=== PATIENT | male | born 1950 | race Caucasian/White ===

== ENCOUNTER → 2022-07-16 12:52 | Outpatient (BNVA) | payer MEDICARE, SELFPAY | PROVIDERS: Visit Provider Internal Medicine | DX: I73.9 Peripheral vascular disease, unspecified (principal); I25.10 Atherosclerotic heart disease of native coronary artery without angina pectoris; I10 Essential (primary) hypertension; E78.5 Hyperlipidemia, unspecified; Z79.82 Long term (current) use of aspirin | CPT/HCPCS: 99204 ==

== ENCOUNTER → 2022-09-02 08:42 | Outpatient (BNVA) | payer MEDICARE, SELFPAY | PROVIDERS: PCP Nurse Practitioner Family; Referring Provider Nurse Practitioner Family; Visit Provider Specialist | DX: I69.320 Aphasia following cerebral infarction (principal); I73.9 Peripheral vascular disease, unspecified; I25.10 Atherosclerotic heart disease of native coronary artery without angina pectoris; E78.5 Hyperlipidemia, unspecified; I10 Essential (primary) hypertension; I69.351 Hemiplegia and hemiparesis following cerebral infarction affecting right dominant side; Z87.891 Personal history of nicotine dependence | CPT/HCPCS: 99204 ==

== ENCOUNTER 2022-09-16 11:50 | Outpatient (CLI) | payer MEDICARE, SELFPAY ==
--- NOTE | 2022-09-16 12:15 | CT_ITS ---
WS: [id number] CT HEAD TECHNIQUE: Noncontrast CT of the head obtained from the skullbase to the vertex. CLINICAL INFORMATION: I73.9 - Peripheral vascular disease, unspecified COMPARISON: None. DLP: 995.[address] scans at [facility] use at least one of these dose optimization techniques: automated e xposure control; mA and/or kV adjustment per patient size (includes targeted exams where dose is matc hed to clinical indication); or iterative reconstruction. FINDINGS: No evidence of intracranial hemorrhage or mass effect. Ventricular system and basal cisterns are burnett nt. Moderate small vessel changes.Moderate parenchymal volume loss. 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 Ex vacuo dilatation of the LEFT posterior late ral ventricle. Intracranial vascular calcification. Mild mucosal thickening with partial opacification fluid in the paranasal sinuses. Frontal sinusitis. Opacification of the frontoethmoidal recesses. Normal posterior nasopharynx. CT/CT head wo con* [id number] IMPRESSION: 1. No evidence of intracranial hemorrhage or mass effect. 2. Moderate small vessel changes.Moderate parenchymal volume loss. 3. Intracranial vascular calcification. 4. Chronic infarct with encephalomalacia in the LEFT posterior frontal and par ietal lobes 5. Frontal sinusitis. 6. No acute intracranial findings.
--- NOTE | 2022-09-16 13:13 | USCV_ITS ---
Kirstin Juan Age: 71 Gender: M : 1950 Exam Date: 09/16/2022 13:30 Ordering Phys: Pricila Ferro MD Technologist: CT Exam Location: [facility] [place]_ Indication: pain Risk Factors: Previous Vascular Surgery: RIGHT LEFT BP: / BP: 118.0/ 63.00 0 Waveform Velocity (cm/s) Velocity (cm/s) Waveform Iliac Prox 121.3 Biphasic Iliac Mid 135.5 Monophasic Iliac Distal 138.1 Monophasic SHAKE MAKER 174.2 Monophasic SFA Prox 193.1 Monophasic SFA Mid 68.4 Biphasic SFA Dist 61.4 Biphasic POP 35.5 Monophasic FOOD SAMPLER 40.7 Monophasic DPA 31.6 Monophasic ROSE 0.9 FINDINGS Moderate to heavy heterogenous plaques in the iliac, femoral and popliteal artery on the left side Resting ROSE 0.9 CONCLUSIONS Moderate to heavy heterogenous diffuse plaques in the iliac, femoral and popliteal arteries on the left side. Resting ROSE 0.9 suggesting mild obstruction. Consider exercise ROSE to better evaluate the functional significance. Dr Geoffrey Holm MD [facility] (Electronically Signed) Final Date: 17 Sep 2022 09:21 S
--- NOTE | 2022-09-16 13:15 | USCV_ITS ---
Juan Fulton Age: 71 Gender: M : 1950 Exam Date: 09/16/2022 13:11 Ordering Phys: Pricila Ferro MD Technologist: CT Exam Location: [facility] [place]_ Indication: stenosis Risk Factors: Previous Vascular Surgery: Right Brachial BP: / Left Brachial BP: / Right Left Velocity (cm/s) Spectral Plaque Velocity (cm/s) Spectral Plaque Syst/Diast Broadening Syst/Diast Broadening 121.30/14.30 Prox CCA 122.40/ 16.50 77.00/ 13.30 Mid CCA 104.70/ 18.70 78.80/ 14.70 Distal CCA 88.20 / 15.40 78.80/ 11.90 Prox ICA 93.20 / 20.20 61.80/ 17.70 Mid ICA 76.10 / 21.00 59.80/ 21.00 Distal ICA 82.30 / 24.90 55.00 ECA 59.00 0.65 ICA/CCA 0.76 Antegrade Vertebral Antegrade 53.90/ 12.50 cm/s 35.00/ 6.20 cm/s Bi Subclavian Bi 103.6 149.4 0 0 CONCLUSIONS Intimal thickening both CCA's Right ICA stenosis <50%. Moderate calcified atheromatous plaque right carotid bulb/ICA. Left ICA stenosis <50%. Moderate calcified atheromatous plaque left carotid bulb/ICA. Normal antegrade Doppler flow noted in the right vertebral artery. Normal antegrade Doppler flow noted in the left vertebral artery. Heriberto Lyle MD (Electronically Signed) Final Date: 16 Sep 2022 17:06 S
== END 2022-09-16 11:51 | disposition home or self-care (01) ==
PROVIDERS: PCP Nurse Practitioner Family; Visit Provider Specialist
DX: I70.202 Unspecified atherosclerosis of native arteries of extremities, left leg (principal); I25.10 Atherosclerotic heart disease of native coronary artery without angina pectoris; I63.9 Cerebral infarction, unspecified; I65.23 Occlusion and stenosis of bilateral carotid arteries; J32.1 Chronic frontal sinusitis; G93.89 Other specified disorders of brain; M79.605 Pain in left leg
CPT/HCPCS: 70450; 93880; 93926

== ENCOUNTER → 2022-12-02 09:38 | Outpatient (BNVA) | payer MEDICARE, SELFPAY | PROVIDERS: PCP Nurse Practitioner Family; Visit Provider Specialist | DX: I69.320 Aphasia following cerebral infarction; I25.10 Atherosclerotic heart disease of native coronary artery without angina pectoris; I73.9 Peripheral vascular disease, unspecified; Z87.891 Personal history of nicotine dependence | CPT/HCPCS: 99214 ==

== ENCOUNTER → 2023-01-14 16:28 | Outpatient (BNVA) | payer MEDICARE, SELFPAY | PROVIDERS: PCP Nurse Practitioner Family; Visit Provider Internal Medicine | DX: E78.5 Hyperlipidemia, unspecified (principal); I10 Essential (primary) hypertension; R00.2 Palpitations; R55 Syncope and collapse | CPT/HCPCS: 36415; 80048; 99214 ==

== ENCOUNTER 2023-02-01 15:18 | Outpatient (CLI) | payer MEDICARE, SELFPAY ==
--- NOTE | 2023-02-01 15:00 | CT_ITS ---
WS: [id number] CT ANGIOGRAPHY OF THE ABDOMINAL AORTA WITH RUNOFF TO THE ANKLES HISTORY: PAD TECHNIQUE: Arterial injection is performed during imaging to evaluate the aorta and runoff vessels to the ankles. MIP and volume rendering imaging has also been performed. All images are reviewed. All C T scans at [facility] use at least one of these dose optimization techniques: automated exposu re control; mA and/or kV adjustment per patient size (includes targeted exams where dose is matched t o clinical indication); or iterative reconstruction. Contrast: Omnipaque 350; 100 mL IV. DLP: 1447.10 mGy.cm COMPARISON: None available. Mild pulmonary hyperinflation of the lung bases. Heart is normal size. No hiatal hernia. Abdominal aorta: Mild atherosclerotic plaque increasing towards the bifurcation. No aneurysm. Small a mount of calcified plaque at the origin of the SMA and celiac axis but no high-grade stenosis. COLLETTE is intact. RIGHT lower extremity arterial system: Calcified plaque throughout the RIGHT common, internal and ext ernal iliac arteries. Stenosis at multiple levels around 50%. There is a very high-grade stenosis, ne ar complete occlusion involving the femoral artery, directly over the femoral head. There is continue d plaque with stenosis greater than 50% in the distal femoral artery to the bifurcation. Very small c aliber proximal SFA. There is circumferential luminal soft plaque. Suspect complete stenosis or near complete stenosis proximal SFA. Very small caliber SFA beyond the plaque. There is additional very hi gh-grade if not complete stenosis in the mid SFA. There are small collateral vessels. Attempted recon stitution in the distal SFA. There is extensive plaque through Ulices's canal. Moderate popliteal art gunner stenosis. Heavily calcified three-vessel runoff below the knee. Small vessel caliber. LEFT lower extremity arterial system: Heavy calcified plaque LEFT common, internal and external iliac arteries. Several LEFT iliac stents are identified. Stents are patent. There is extensive calcified plaque in the femoral artery. Moderate plaque throughout the SFA. High-grade if not complete stenosis distal SFA just proximal to Ulices's canal. Reconstitution in Ulices's canal. Small caliber distal S FA to the popliteal artery. Small vessel runoff to the ankle. There is calcified plaque with areas of high-grade stenosis. Too small to characterize 5 mm low-attenuation nodule in the RIGHT lobe of the liver towards the infe rior lobe. Negative gallbladder. Normal spleen. Normal enhancement of the kidneys. RIGHT renal cyst 2 .4 x 3.6 cm. Negative pancreas. No GI tract obstruction. No adenopathy or ascites. Ventral abdominal wall hernia contains fat. Massive enlargement of the urinary bladder extending over a length of 17 cm . Outlet obstruction should be considered. IMPRESSION: 1. No aortic aneurysm. 2. Multiple LEFT iliac stents are patent. 3. Extensive calcified plaque throughout the RIGHT iliac arteries through the SFA and popliteal arter y. Multifocal areas of stenoses near 50% with additional high-grade stenosis directly over the femora l head. 4. Multifocal areas of RIGHT SFA stenosis and/or complete occlusions with reconstitution. 5. Extensive plaque throughout the LEFT femoral and superficial femoral artery. High-grade if not com plete stenosis distal LEFT SFA. 6. Small caliber bilateral three-vessel runoff to the ankle with heavy calcifications. Limited flow t o the ankles. The lumen of the vessels is being obscured by the heavy calcification. 7. Severe urinary bladder distention. Outlet obstruction is likely. Consult with urology.
[2023-02-01] MEDS: iohexol 350 mg/mL 500 mL Btl (per mL) IV (15:47)
== END 2023-02-01 15:19 | disposition home or self-care (01) ==
LOC: RAD 15:19
PROVIDERS: PCP Nurse Practitioner Family; Visit Provider Internal Medicine
DX: I70.203 Unspecified atherosclerosis of native arteries of extremities, bilateral legs (principal); Z95.820 Peripheral vascular angioplasty status with implants and grafts
CPT/HCPCS: 75635; Q9967

== ENCOUNTER 2023-05-06 17:08 | Emergency (ER) | payer MEDICARE, SELFPAY ==
[2023-05-06 17:09] VITALS: BP 138/71; PULSE 113; RESP 23; TEMP 36.6; O2SAT 98; BMI 29.9
--- NOTE | 2023-05-06 17:10 | XRR_ITS ---
PROCEDURE INFORMATION: Exam: XR Chest Exam date and time: 05/06/2023 5:21 PM Age: 72 years old Clinical indication: Pain; Chest pressure; Additional info: Chest pain TECHNIQUE: Imaging protocol: Radiologic exam of the chest. Views: 1 view. COMPARISON: CT angio abd aorta runof [id number] 02/01/2023 3:38 PM FINDINGS: Lungs: No focal consolidation. Pleural spaces: No pleural effusion. No pneumothorax. Heart/Mediastinum: No cardiomegaly. Bones/joints: No acute findings. XR/XR chest 1V portable [id number] IMPRESSION: No acute findings.
--- NOTE | 2023-05-06 17:20 | ECG_ITS ---
[facility] Test Date: 2023-05-06 Pat Name: Juan Fulton Department: Room: Gender: Male In House Cra: : 1950 Requested By: Roland Newton Order Number: [id number] Jean Marie MD: Geoffrey Holm M.D. Measurements Intervals [place] Rate: 148 P: 0 NM: 0 QRS: 54 QRSD: 84 T: -55 QT: 283 QTc: 444 Interpretive Statements ATRIAL FLUTTER/TACHYCARDIA WITH RAPID VENTRICULAR RESPONSE ST DEVIATION AND MODERATE T-WAVE ABNORMALITY, CONSIDER INFERIOR ISCHEMIA [-0.1+ mV T-WAVE IN II/aVF] No previous ECG available for comparison Electronically Signed On 05-06-2023 21:50:26 CREAM GATHERER by Geoffrey Holm M.D. [id number]
[2023-05-06] MEDS: metoprolol succinate ER (24 HR) 25 mg Tablet 12.5 MG PO (17:25)
[2023-05-06] MEDS: metoprolol tartrate 1 mg/1 mL SDV 5 mL 5 MG IVP (17:25)
--- NOTE | 2023-05-06 17:36 | W.ED.ARRPALP ---
Documented by User: Roland Brooke DO 05/06/23 17:59 HPI - Arrhythmia/Palpitations General: Chief Complaint: Arrhythmia/Palpitations Stated Complaint: chest pain Time Seen by Provider: 05/06/23 17:10 Source: patient Mode of arrival: ambulatory History of Present Illness: 72-year-old male presents emergency room with rapid heart rate. He has a known history of atrial fibrillation. He is currently on metoprolol for rate control additionally he is on Eliquis, aspirin and Plavix. He has a history of peripheral artery disease and previous stents in his femoral arteries. MD complaint: rapid heart beat, heart racing and atrial fibrillation Onset (ago): minute(s) Duration: intermittent Severity: mild Context: occurred during rest Arrhythmia history: atrial fibrillation Associated symptoms: Deny anxiety, cough, diaphoresis, muscle cramps, nausea, paresthesias, pre-syncope, sense of impending doom, short of breath, syncope or vomiting Review of Systems Const: Denies: diaphoresis Card: Denies: syncope or pre-syncope Resp: Denies: dyspnea GI: Denies: nausea or vomiting : Denies: dysuria, urinary frequency or urinary urgency Musc: Denies: muscle cramps Skin/Breast: Denies: rash Psych: Denies: anxiety PFSH ED PFSH: Medical History HTN (hypertension) Hyperlipemia COPD (chronic obstructive pulmonary disease) CAD (coronary artery disease) Surgical History Hx of neck surgery History of transurethral resection of prostate H/O repair of rotator cuff Family History Unknown Stroke Social History Smoking and tobacco/nicotine status: former use of tobacco/nicotine Alcohol intake: current Alcohol intake frequency: 3 or more drinks per day Alcohol type: beer Physical Exam Const: GENERAL APPEARANCE: cooperative and comfortable ORIENTATION/CONSCIOUSNESS: Yes awake, Yes oriented to person, Yes oriented to place and Yes oriented to time HENMT: COMMON NORMALS: normocephalic, atraumatic and hearing grossly normal bilaterally HEAD & SCALP: normocephalic and atraumatic Resp: COMMON NORMALS: normal respiratory effort, No retractions, No use of accessory muscles and clear to auscultation bilaterally AUSCULTATION: clear to auscultation bilaterally Cardio: COMMON NORMALS: No murmurs present (Cardio) RATE: tachycardic RHYTHM: abnormal rhythm irregularly irregular GI: COMMON NORMALS: Soft to palpation and No hepatosplenomegaly present AUSCULTATION: Yes normoactive bowel sounds PALPATION: Yes Soft to palpation, No Tenderness to palpation present (GI), No Guarding due to palpation present (GI) and Yes No hepatosplenomegaly present Extremity: COMMON NORMALS: normal to inspection, capillary refill normal, no clubbing, cyanosis or edema, no calf tenderness and no pedal edema Neuro: SENSORIUM/ORIENTATION: Yes oriented to person, Yes oriented to place and Yes oriented to time Skin: COMMON NORMALS: no rashes or lesions noted GENERAL SKIN EXAM: no rashes or lesions noted Course Vital Signs: Vital signs: Vital Signs Temperature 97.9 F 05/06/23 17:09 Pulse Rate 96 05/06/23 18:37 Respiratory Rate 15 05/06/23 18:37 Blood Pressure 127/71 05/06/23 18:37 Pulse Oximetry 99 05/06/23 18:37 Oxygen Delivery Me thod Room Air 05/06/23 17:09 MDM - Arrhythmia/Palpitations Medical Decision Making Care signed out to Dr. Pennington at change of shift. See final notes for diagnosis and disposition. Medical Records I reviewed the patient's medical records. Lab Data I reviewed the patient's lab results. 05/06/23 17:33 05/06/23 17:33 Radiology Impressions Chest X-Ray 05/06/23 17:10 IMPRESSION: No acute findings. Laboratory Results WBC 6.04 10^3/uL (3.29-11.43) 05/06/23 17:33 RBC 4.14 10^6/uL (3.85-5.65) 05/06/23 17:33 Hgb 13.90 g/dL (11.27-16.99) 05/06/23 17:33 Hct 40.9 % (37-53) 05/06/23 17:33 MCV 98.8 fl (82-101) 05/06/23 17:33 MCH 33.6 pg (27-33) H 05/06/23 17: MCHC 34.0 g/dL (30-55) 05/06/23 17:33 RDW 13.2 % (12.1-15.1) 05/06/23 17:33 Plt Count 207 10^3/cmm (157-399) 05/06/23 17:33 MPV 10.3 fL (7.4-10.4) 05/06/23 17: Neut % (Auto) 62.6 % 05/06/23 17:33 Lymph % (Auto) 20.2 % 05/06/23 17:33 Robeson % (Auto) 10.3 % 05/06/23 17:33 Eos % (Auto) 5.3 % 05/06/23 17:33 Baso % (Auto) 1.3 % 05/06/23 17: Neut # (Auto) 3.78 10^3/uL (1.8-7.7) 05/06/23 17:33 Lymph # (Auto) 1.2 10^3/uL (0.8-4.8) 05/06/23 17:33 Robeson # (Auto) 0.6 10^3/uL (0.2-0.9) 05/06/23 17:33 Eos # (Auto) 0.3 10^3/uL (0.0-0.8) 05/06/23 17:33 Baso # (Auto) 0.1 10^3/uL (0.0-0.1) 05/06/23 17: Nucleated RBC % (auto) 0 % 05/06/23 17: Nucleated RBCs # 0.0 /100WBC 05/06/23 17:33 Sodium 141 mmol/L (136-145) 05/06/23 17:33 Potassium 3.7 mmol/L (3.5-5.1) 05/06/23 17:33 Chloride 104 mmol/L (98-107) 05/06/23 17:33 Carbon Dioxide 23 mmol/L (22-29) 05/06/23 17:33 Anion Gap 17.7 (5-19) 05/06/23 17:33 BUN 9 mg/dL (8-23) 05/06/23 17:33 Creatinine 1.0 mg/dL (0.7-1.2) 05/06/23 17:33 GFR Calculation Not Reportable 05/06/23 17:33 Glucose 90 mg/dL (65-115) 05/06/23 17:33 Calculated Osmolality 290 mOsm/kg (285-295) 05/06/23 17:33 Calcium 9.9 mg/dL (8.5-10.5) 05/06/23 17:33 Total Bilirubin 0.6 mg/dL (0.15-1.2) 05/06/23 17:33 AST 18 U/L (0-40) 05/06/23 17:33 ALT 18 U/L (0-41) 05/06/23 17:33 Alkaline Phosphatase 89 U/L (40-130) 05/06/23 17:33 Troponin T Baseline 14 ng/L (0-15) 05/06/23 17: Troponin T 120 Minute 13.88 ng/L (0-15) 05/06/23 19:27 Delta Troponin T -0.12 ABS# (0-10) L 05/06/23 19:27 Total Protein 7.1 g/dL (6.6-8.7) 05/06/23 17:33 Albumin 4.6 g/dL (3.5-5.2) 05/06/23 17:33 Globulin 2.5 g/dL (1.3-4.6) 05/06/23 17:33 All radiology interpretation(s) finalized by discharge Discharge Plan Discharge Patient Disposition: Home Clinical Impression: Atrial fibrillation with rapid ventricular response Condition: Stable Prescriptions: No Action fluticasone propionate [Allergy Relief (fluticasone)] 50 mcg/actuation spray,suspension 1 spray intranasal DAILY Rx Instructions: administer into each nostril mupirocin calcium 2 % cream 1 applic topical TID triamcinolone acetonide 0.1 % cream 1 applic topical BID aspirin 81 mg tablet,chewable 81 mg PO DAILY rosuvastatin 20 mg tablet 20 mg PO DAILY olmesartan 20 mg tablet 20 mg PO DAILY albuterol sulfate 90 mcg/actuation HFA aerosol inhaler 2 puff inhalation Q6H PRN cholecalciferol (vitamin D3) 50 mcg (2,000 unit) capsule 50 mcg PO DAILY omega 8-cdh-eth-fish oil [Fish Oil] 1,200 (144-216) mg capsule PO clopidogrel [Plavix] 75 mg tablet 75 mg PO DAILY Qty: 90 3RF Eliquis 5 mg tablet 5 mg PO BID Qty: 90 3RF metoprolol succinate 25 mg tablet extended release 24 hr 25 mg PO DIRECTED Qty: 270 3RF Rx Instructions: 50MG (TWO TABS) IN THE MORNING AND 25MG (ONE TAB) IN THE EVENING. cilostazol 50 mg tablet 50 mg PO BID Qty: 180 3RF Discharge Orders: Discharge ED (Routine); Ordered 05/06/23 Ordered By: Jeremiah Pennington Referrals: Nayana Chavez APN [Primary Care Provider] - 1 week Patient Instructions: A-fib (Atrial Fibrillation) (ED) Activity Restrictions/Additional Instructions: Please follow-up with your family practice physician within 1 week for further evaluation and treatment. Please call Dr. Burns office and discuss your triple therapy anticoagulation medications and see if you still need all 3. If your symptoms return please feel free to come back to the ER for further evaluation. Coding Level of Care Code ED Machine Operator Hop Worker for Chg Fwd Documented by User: Jeremiah Pennington DO 05/06/23 19:54 HPI - Arrhythmia/Palpitations General: Chief Complaint: Arrhythmia/Palpitations Stated Complaint: chest pain Time Seen by Provider: 05/06/23 17:10 [facility] ED PFSH: Medical History HTN (hypertension) Hyperlipemia COPD (chronic obstructive pulmonary disease) CAD (coronary artery disease) Surgical History Hx of neck surgery History of transurethral resection of prostate H/O repair of rotator cuff Family History Unknown Stroke Social History Smoking and tobacco/nicotine status: former use of tobacco/nicotine Alcohol intake: current Alcohol intake frequency: 3 or more drinks per day Alcohol type: beer Course Vital Signs: Vital signs: Vital Signs Temperature 97.9 F 05/06/23 17:09 Pulse Rate 96 05/06/23 18:37 Respiratory Rate 15 05/06/23 18:37 Blood Pressure 127/71 05/06/23 18:37 Pulse Oximetry 99 05/06/23 18:37 Oxygen Delivery Me thod Room Air 05/06/23 17:09 MDM - Arrhythmia/Palpitations Medical Decision Making Care signed out to Dr. Pennington at change of shift. See final notes for diagnosis and disposition. Care taken over shift change. Patient was resting comfortably in bed. Patient presented today with rapid heart rate and was diagnosed in A-fib with RVR. Patient was given additional doses of medicine had serial EKGs and lab work obtained. Patient was back in normal sinus rhythm at a beat of approximately 67 bpm when I discussed his results with him. Patient sees Dr. Ramsey. Patient will be discharged home and should follow-up with Dr. Ramsey to ask about his triple therapy anticoagulation. Differential Diagnosis Likely artial fibrillation and artial flutter; Unlikely palpitations, anxiety, sinus tachycardia, ventricular premature beats, supraventricular tachycardia, ventricular tachycardia or WPW Lab Data 05/06/23 17:33 05/06/23 17:33 Radiology Impressions Chest X-Ray 05/06/23 17:10 IMPRESSION: No acute findings. Laboratory Results WBC 6.04 10^3/uL (3.29-11.43) 05/06/23 17:33 RBC 4.14 10^6/uL (3.85-5.65) 05/06/23 17:33 Hgb 13.90 g/dL (11.27-16.99) 05/06/23 17:33 Hct 40.9 % (37-53) 05/06/23 17:33 MCV 98.8 fl (82-101) 05/06/23 17:33 MCH 33.6 pg (27-33) H 05/06/23 17:33 MCHC 34.0 g/dL (30-55) 05/06/23 17:33 RDW 13.2 % (12.1-15.1) 05/06/23 17:33 Plt Count 207 10^3/cmm (157-399) 05/06/23 17: MPV 10.3 fL (7.4-10.4) 05/06/23 17:33 Neut % (Auto) 62.6 % 05/06/23 17:33 Lymph % (Auto) 20.2 % 05/06/23 17:33 Robeson % (Auto) 10.3 % 05/06/23 17: Eos % (Auto) 5.3 % 05/06/23 17:33 Baso % (Auto) 1.3 % 05/06/23 17:33 Neut # (Auto) 3.78 10^3/uL (1.8-7.7) 05/06/23 17: Lymph # (Auto) 1.2 10^3/uL (0.8-4.8) 05/06/23 17: Robeson # (Auto) 0.6 10^3/uL (0.2-0.9) 05/06/23 17: Eos # (Auto) 0.3 10^3/uL (0.0-0.8) 05/06/23 17:33 Baso # (Auto) 0.1 10^3/uL (0.0-0.1) 05/06/23 17: Nucleated RBC % (auto) 0 % 05/06/23 17: Nucleated RBCs # 0.0 /100WBC 05/06/23 17:33 Sodium 141 mmol/L (136-145) 05/06/23 17:33 Potassium 3.7 mmol/L (3.5-5.1) 05/06/23 17:33 Chloride 104 mmol/L (98-107) 05/06/23 17:33 Carbon Dioxide 23 mmol/L (22-29) 05/06/23 17:33 Anion Gap 17.7 (5-19) 05/06/23 17:33 BUN 9 mg/dL (8-23) 05/06/23 17: Creatinine 1.0 mg/dL (0.7-1.2) 05/06/23 17:33 GFR Calculation Not Reportable 05/06/23 17:33 Glucose 90 mg/dL (65-115) 05/06/23 17:33 Calculated Osmolality 290 mOsm/kg (285-295) 05/06/23 17:33 Calcium 9.9 mg/dL (8.5-10.5) 05/06/23 17:33 Total Bilirubin 0.6 mg/dL (0.15-1.2) 05/06/23 17:33 AST 18 U/L (0-40) 05/06/23 17:33 ALT 18 U/L (0-41) 05/06/23 17:33 Alkaline Phosphatase 89 U/L (40-130) 05/06/23 17:33 Troponin T Baseline 14 ng/L (0-15) 05/06/23 17:33 Troponin T 120 Minute 13.88 ng/L (0-15) 05/06/23 19:27 Delta Troponin T -0.12 ABS# (0-10) L 05/06/23 19:27 Total Protein 7.1 g/dL (6.6-8.7) 05/06/23 17:33 Albumin 4.6 g/dL (3.5-5.2) 05/06/23 17:33 Globulin 2.5 g/dL (1.3-4.6) 05/06/23 17:33 Discharge Plan Discharge Patient Disposition: Home Clinical Impression: Atrial fibrillation with rapid ventricular response Condition: Stable Prescriptions: No Action fluticasone propionate [Allergy Relief (fluticasone)] 50 mcg/actuation spray,suspension 1 spray intranasal DAILY Rx Instructions: administer into each nostril mupirocin calcium 2 % cream 1 applic topical TID triamcinolone acetonide 0.1 % cream 1 applic topical BID aspirin 81 mg tablet,chewable 81 mg PO DAILY rosuvastatin 20 mg tablet 20 mg PO DAILY olmesartan 20 mg tablet 20 mg PO DAILY albuterol sulfate 90 mcg/actuation HFA aerosol inhaler 2 puff inhalation Q6H PRN cholecalciferol (vitamin D3) 50 mcg (2,000 unit) capsule 50 mcg PO DAILY omega 1-tht-ppg-fish oil [Fish Oil] 1,200 (144-216) mg capsule PO clopidogrel [Plavix] 75 mg tablet 75 mg PO DAILY Qty: 90 3RF Eliquis 5 mg tablet 5 mg PO BID Qty: 90 3RF metoprolol succinate 25 mg tablet extended release 24 hr 25 mg PO DIRECTED Qty: 270 3RF Rx Instructions: 50MG (TWO TABS) IN THE MORNING AND 25MG (ONE TAB) IN THE EVENING. cilostazol 50 mg tablet 50 mg PO BID Qty: 180 3RF Discharge Orders: Discharge ED (Routine); Ordered 05/06/23 Ordered By: Jeremiah Pennington Referrals: Nayana Chavez APN [Primary Care Provider] - 1 week Patient Instructions: A-fib (Atrial Fibrillation) (ED) Activity Restrictions/Additional Instructions: Please follow-up with your family practice physician within 1 week for further evaluation and treatment. Please call Dr. Burns office and discuss your triple therapy anticoagulation medications and see if you still need all 3. If your symptoms return please feel free to come back to the ER for further evaluation. Coding Level of Care Code ED Machine Operator Hop Worker for Grace Solano
[2023-05-06 17:44] VITALS: BP 138/71; PULSE 73; RESP 15; O2SAT 98
[2023-05-06 17:52] LABS: Basophils # 0.1 10^3/uL (0.0-0.1); Basophils % 1.3 %; Eosinophils # 0.3 10^3/uL (0.0-0.8); Eosinophils % 5.3 %; Hematocrit 40.9 % (37-53); Lymphocytes # 1.2 10^3/uL (0.8-4.8); Lymphocytes % 20.2 %; Mean Corpuscular Hemoglobin 33.6 pg (27-33); Mean Corpuscular Volume 98.8 fl (82-101); Mean Platelet Volume 10.3 fL (7.4-10.4); Monocytes # 0.6 10^3/uL (0.2-0.9); Monocytes % 10.3 %; Neutrophils # 3.78 10^3/uL (1.8-7.7); Neutrophils % 62.6 %; Nucleated Red Blood Cells % 0 %; Platelet Count 207 10^3/cmm (157-399); Red Blood Count 4.14 10^6/uL (3.85-5.65); Red Cell Distribution Width 13.2 % (12.1-15.1); White Blood Count 6.04 10^3/uL (3.29-11.43)
[2023-05-06 18:08] LABS: Troponin(5th) Baseline 14 ng/L (0-15)
[2023-05-06 18:11] LABS: Alanine Aminotransferase 18 U/L (0-41); Albumin Level 4.6 g/dL (3.5-5.2); Alkaline Phosphatase 89 U/L (40-130); Anion Gap 17.7 (5-19); Aspartate Amino Transferase 18 U/L (0-40); Blood Urea Nitrogen 9 mg/dL (8-23); Calcium 9.9 mg/dL (8.5-10.5); Carbon Dioxide 23 mmol/L (22-29); Chloride 104 mmol/L (98-107); Globulin 2.5 g/dL (1.3-4.6); Glucose 90 mg/dL (65-115); Osmolality Calculated 290 mOsm/kg (285-295); Potassium 3.7 mmol/L (3.5-5.1); Sodium 141 mmol/L (136-145); Total Bilirubin 0.6 mg/dL (0.15-1.2); Total Protein 7.1 g/dL (6.6-8.7)
[2023-05-06 18:37] VITALS: BP 127/71; PULSE 96; RESP 15; O2SAT 99
--- NOTE | 2023-05-06 19:23 | ECG_ITS ---
[facility] Test Date: 2023-05-06 Pat Name: Juan Fulton Department: Room: Gender: Male Recruitment Consultant: : 1950 Requested By: Roland Newton Order Number: [id number] Jean Marie MD: Geoffrey Holm M.D. Measurements Intervals [place] Rate: 67 P: 61 NH: 201 QRS: 52 QRSD: 77 T: 50 QT: 359 QTc: 381 Interpretive Statements SINUS RHYTHM Compared to ECG 05/06/2023 17:20:16 Atrial flutter no longer present T-wave abnormality no longer present Possible ischemia no longer present Electronically Signed On 05-07-2023 13:47:43 TERMINAL GAUGER SUPERVISOR by Geoffrey Holm M.D. [id number]
[2023-05-06 19:52] LABS: Troponin 5 2HR 13.88 ng/L (0-15)
[2023-05-06 19:53] LABS: Troponin 5 2HR Delta -0.12 ABS# (0-10)
[2023-05-06 20:19] VITALS: BP 120/71; PULSE 86; RESP 16; O2SAT 97
== END 2023-05-06 20:20 | disposition home or self-care (01) ==
PROVIDERS: Emergency Provider Family Medicine; PCP Nurse Practitioner Family
DX: I48.20 Chronic atrial fibrillation, unspecified (principal); Z79.02 Long term (current) use of antithrombotics/antiplatelets; Z79.82 Long term (current) use of aspirin; Z79.01 Long term (current) use of anticoagulants; I10 Essential (primary) hypertension; E78.5 Hyperlipidemia, unspecified; J44.9 Chronic obstructive pulmonary disease, unspecified; I25.10 Atherosclerotic heart disease of native coronary artery without angina pectoris; Z87.891 Personal history of nicotine dependence
CPT/HCPCS: 36415; 71045; 80053; 84484; 85025; 93005; 96374; 99285; J3490

== ENCOUNTER → 2023-07-15 13:58 | Outpatient (BNVA) | payer MEDICARE, SELFPAY | PROVIDERS: PCP Nurse Practitioner Family; Visit Provider Internal Medicine | DX: I73.9 Peripheral vascular disease, unspecified (principal); I25.10 Atherosclerotic heart disease of native coronary artery without angina pectoris; I10 Essential (primary) hypertension; E78.5 Hyperlipidemia, unspecified; Z87.891 Personal history of nicotine dependence | CPT/HCPCS: 99214 ==

== ENCOUNTER 2023-09-23 07:15 | Outpatient (CLI) | payer MEDICARE, SELFPAY ==
[2023-09-23] VITALS (58 sets, daily range): BP systolic 115–172; BP diastolic 55–90; PULSE 50–88; RESP 12–30; TEMP 36.3–36.9; O2SAT 97–100; BMI 27.6; BMI 27.4
--- NOTE | 2023-09-23 07:30 | XACV_ITS ---
Ht: 165 cm Wt: 75 kg BSA: 1.88 m2 Any Known Allergies: No known allergies Gender: Male : 1950 Exam Type: Invasive Peripheral Vascular Procedure(s): Procedure Description: Peripheral Cath Diagnostic Procedure Procedure Description: Abdominal aortic angiography Procedure Description: Lower extremities' angiography Procedure Description: Peripheral vascular Intervention Procedure Description: PV Balloon Procedure Description: PV Stent Procedure Description: PV Atherectomy Exam Priority: Routine Abdominal Diagnostic Findings Distal abdominal aorta is patent. Lower Extremity Diagnostic Findings INDICATION: 72-year-old man with past medical history of atrial fibrillation, PAD who has been having severe lifestyle limiting claudication for last several months. Bilateral lower right leg is much worse. We were treating patient medically however now symptoms are very limiting. CTA showed severe PAD. Plan for peripheral angiogram with intention of intervention of right lower extremity. Right lower extremity: Right common iliac artery is patent. Right external iliac artery is patent. Right internal iliac artery is patent. Right common femoral artery is patent. Right profunda artery is patent. Right SFA is totally occluded in proximal vessel. Heavily calcified throughout SFA. Reconstitutes via collaterals in distal SFA. Right popliteal artery is patent. Below the knee patient has three-vessel runoff with patent posterior tibial, anterior tibial and peroneal arteries.. Right Proximal Superficial Femoral Artery: 99% stenosis, ostial. Right Mid-longitudinal Superficial Femoral Artery: 100% stenosis. Right Distal Superficial Femoral Artery: 100% stenosis. Lower Extremity Interventional Findings Procedure detail: After peripheral angiogram was performed, we switched short sheath from left common femoral artery access to long sheath. IV heparin was administered to maintain anticoagulation. Using Glidewire and seeker support catheter we were able to cross totally occluded SFA and was placed in distal popliteal artery. Through the support catheter we switched Glidewire to Viper wire. Orbital atherectomy was used to perform the several runs of arthrectomy from proximal to distal vessel. As we were trying to walk out the jamie over Viper wire, jamie got stuck to the wire and both wire and jamie came out. Then after multiple attempts we were not able to go into the true lumen distally with wire and support catheter. There was significant dissection. We switched access site to right posterior tibial artery. Going retrogradely, we were able to cross the SFA again. The first ballooned it with 6.0 x 100 mm [place] balloon. This was followed by ballooning with 6.0 x 250 mm balloon. Several areas of dissection were seen at proximal and distal vessel. In the proximal vessel, we placed 6.0 x 100 mm absolute Pro self-expanding stent. Mid to distal SFA underwent stenting with 6 x 60 mm absolute Pro self-expanding stent x 2. At this time final angiogram was performed that showed excellent flow throughout the vessel. Glidewire was removed. Patient left the Performance Improvement Analyst in a stable condition.. Right Proximal Superficial Femoral Artery: 99% stenosis treated with AB ABSOLUTE PRO SE STENT [id number]. Right Mid-longitudinal Superficial Femoral Artery: 100% stenosis treated with AB ARMADA 35 OTW [id number] and AB [place] 35 MIXING TANK OPERATOR Catheter [id number]. Right Distal Superficial Femoral Artery: 99% stenosis treated with two AB ABSOLUTE PRO SE STENT [id number]. Conclusions There is severe right lower extremity disease. S/p successful revascularization of her right SFA with balloon angioplasty and stents x 3. Right Distal Superficial Femoral Artery was treated with balloon and stentsx 2. Right proximal SFA was treated with 1 stent. Recommendations Dual antiplatelet therapy. Outpatient cardiology follow up in 2 weeks. Hemodynamic Data Phase:Rest AO : 118.0 / 49.0 ( 73.0 ) @ 9:48:00 AM 118.0 / 53.0 ( 77.0 ) @ 10:39:00 AM 141.0 / 64.0 ( 96.0 ) @ 10:54:00 AM 121.0 / 48.0 ( 75.0 ) @ 11:11:00 AM 143.0 / 55.0 ( 88.0 ) @ 11:28:00 AM Access Site Site: Left Femoral artery Sheath Size: 6 Fr Hemost... Method: Suture Hemost... Success: Successful Site: Right Pedal Sheath Size: 6 Fr Hemost... Method: Suture Hemost... Success: Successful Procedure Details Findings Procedure Consent Obtained. Admit Source: Out Patient. Pre-Procedure Time Out. Identified patient by full name and date of as verbalized by the patient/guarantor. Does the consent match the physician's order: Yes. Accurate & Complete Informed Consent: Yes. Inpatient/Outpatient History & Physical on Chart: Yes. If H&P is completed, is and addenduem needed: No; If yes, is the addendum complete: N/A. Visualize and Verify Site with Patient/Guarantor: N/A. Relevant Radiology Images available: N/A. The risks, benefits, and alternatives of sedation and/or procedure were discussed by physician. The patient agrees to continue. Procedure started. Current diagnosis: PAD. PERRLA. 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 Lungs clear x 5 lobes. IV Site on Arrival: 20 gauge in the right anticubital. IV Fluids: 0.9% NaCl at 75ml/hr. 0 mL infused prior to manager cardiac cath. Pre Procedural Pulses: bilateral radial was 3+. Pre Procedural Pulses: bilateral posterior tibial was Doppled. Pre Procedural Pulses: bilateral dorsalis pedis was Doppled. Oxygen started at 2liters/min via nasal canula. bilateral groins was prepped with chloroprep then draped in the usual sterile fashion. Physician notified. Baseline sample Acquired. HR: 80 BPM. Physician arrived. Physician scrubbed in. Time out performed with cath team. Lidocaine 1% infiltrated to the left groin. Arterial access obtained with micropuncture set. A 5Fr UF catheter in over wire. Abdominal aortogram performed in AP @ 10 mL/sec for a total of 30 mL. Glidewire in through UF catheter. Glidewire advanced to right SFA. Uf catheter out. 6fr short sheath exchanged for 6fr 45cm flexor sheath over the glidewire. DSA imaging performed to better visualize distal vessels below right popliteal. Seeker catheter inserted over the glidewire. Seeker advanced to popliteal. Glidewire out. Hand injection through seeker. Viperwire in through seeker catheter, advanced to anterior tibial. Seeker catheter out over viperwire. Orbital atherectomy 1.5mm jamie advanced over viperwire. Orbital atherectomy performed of ostial SFA. Device advanced to proximal SFA. Orbital atherectomy performed of proximal SFA. Device advanced to mid SFA. Orbital atherectomy performed of mid SFA. Device advanced to distal SFA. Orbital atherectomy performed of distal SFA. Viper wire and orbital atherectomy device out. Glidewire in through seeker catheter. Seeker advanced to distal SFA. Wire out. Hand injection through the seeker. Glidewire in though seeker. Unable to advanced glidewire past distal SFA. Glidewire out. 300cm runthrough wire in through seeker catheter. Unable to advance wire, wire and seeker out. Right common iliac selected and arteriogram with runoff performed @ 10 mL/sec for a total of 30 mL. Side port of sheath attached to Normal Saline flush at KVO to maintain patency. Ultrasound called to manager cardiac cath to assist to posterior tibial artery access. Lidocaine 1% infiltrated to the right posterior tibial. An attempt to gain access to the right posterior tibial artery was unsuccessful. Manual pressure was held as needed to stop the bleeding. Lidocaine 1% infiltrated to the right posterior tibial. Arterial access obtained with micropuncture set. Glidewire in through posterior tibial sheath. Glidewire advanced to proximal SFA. Seeker in over glidewire. Seeker catheter out over glidewire. Balloon inserted over the wire to the right superficial femoral. Unable to advance, undeployed 6.0 X 250mm balloon out. Balloon inserted over the wire to the distal superficial femoral. Inflation number : 1 Steve YOUSIF 35 OTW [id number] was prepped and advanced across the Superficial Femoral, Right , then inflated to 6 DEMARCO for 1:01 seconds. Inflation number: 2 The AB ARMADA 35 OTW [id number] was reinflated across the Superficial Femoral, Right, to 6 DEMARCO for 1:03 seconds. Ballon advanced to mid SFA. Inflation number: 3 The AB ARMADA 35 OTW [id number] was reinflated across the Superficial Femoral, Right, to 6 DEMARCO for 1:01 seconds. Balloon advanced to proximal SFA. Inflation number: 4 The AB ARMADA 35 OTW [id number] was reinflated across the Superficial Femoral, Right, to 6 DEMARCO for 1:00 seconds. Inflation number: 5 The AB ARMADA 35 OTW [id number] was reinflated across the Superficial Femoral, Right, to 6 DEMARCO for 0:31 seconds. Balloon out over wire. Balloon inserted over the wire to the superficial femoral. Inflation number : 6 A AB [place] 35 MIXING TANK OPERATOR Catheter [id number] was prepped and advanced across the Superficial Femoral, Right , then inflated to 6 DEMARCO for 1:30 seconds. Inflation number: 7 The AB [place] 35 MIXING TANK OPERATOR Catheter [id number] was reinflated across the Superficial Femoral, Right, to 6 DEMARCO for 1:30 seconds. Balloon out over wire. Right external iliac selected and arteriogram with runoff performed @ 10 mL/sec for a total of 30 mL. DSA imaging performed below right popliteal to better visualize distal vessels. ACT drawn. Results 278 seconds. Therapeutic limits - pre-heparin administration 90-150 seconds and monitoring heparin during a vascular procedure >250 seconds. DSA performed of common femoral and superficial femoral. Stent inserted over the wire to the ostial superficial femoral. AB ABSOLUTE PRO SE STENT [id number] was deployed across Ostial Superficial Femoral, Right. Lot # [id number] EXP 11-23-2024. Right external iliac selected and arteriogram with runoff performed @ 10 mL/sec for a total of 30 mL. Stent inserted over the wire to the distal superficial femoral. AB ABSOLUTE PRO SE STENT [id number] was deployed across Distal Superficial Femoral, Right. Lot #[id number] EXP 01-23-2025. Stent inserted over the wire to the distal superficial femoral. AB ABSOLUTE PRO SE STENT [id number] was deployed across Distal Superficial Femoral, Right. Lot # [id number] EXP 01-23-2025. Balloon inserted over the wire to the superficial femoral. Inflation number: 8 The AB [place] 35 MIXING TANK OPERATOR Catheter [id number] was reinflated across the Superficial Femoral, Right, to 8 DEMARCO for 0:59 seconds. Balloon out over wire. Right external iliac selected and arteriogram with runoff performed @ 10 mL/sec for a total of 30 mL. 6fr 45cm flexor exchanged for 6 fr 11cm sheath over the standard wire. ACT drawn. Results 234 seconds. Therapeutic limits - pre-heparin administration 90-150 seconds and monitoring heparin during a vascular procedure >250 seconds. Sheath injected in Left common femoral artery and runoff performed. A Suture was successful obtaining hemostatsis at the Left Femoral artery insertion site. A Suture was successful obtaining hemostatsis at the Right Pedal insertion site. Sheath(s) sutured into position with 2-0 silk and sterile 4x4's and Op-site applied over the site. No oozing or signs and symptoms of hematoma noted. Arterial sheath flushed and connected to tranducer and pressure bag with heparinized saline. Post Procedure: Pulses reassessed and unchanged. PERRLA. 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 No VTE prophylaxis required. Total IV fluids: 230 mL. Medication's Wasted: Lidocaine 1% = 3 mL. Medication's Wasted: Heparin = 4000 units. Post-op diagnosis: Lifestyle limiting claudication, PAD. Complications: None. Estimated blood loss: 5mL-10mL. Responsiveness - Normal response to verbal stimuli; alert and oriented, PERRLA. Airway - Unaffected, no intervention required; spontaneous ventilation. Circulation: W/N/L, pulses unchanged. Nausea/Vomiting: No. Procedure completed. Patient transferred by bed to ICU. Vital chart was stopped. Procedure Medications Start: 8:33 AM Stop: 8:33 AM Medication: Versed Amount: 1 mg Route: I.V. Start: 8:38 AM Stop: 8:38 AM Medication: Fentanyl Amount: 25 mcg Route: I.V. Start: 8:42 AM Stop: 8:42 AM Medication: Versed Amount: 1 mg Route: I.V. Start: 8:56 AM Stop: 8:56 AM Medication: Fentanyl Amount: 25 mcg Route: I.V. Start: 9:07 AM Stop: 9:07 AM Medication: Heparin Amount: 5000 units Route: I.V. Start: 9:20 AM Stop: 9:20 AM Medication: Fentanyl Amount: 25 mcg Route: I.V. Start: 9:21 AM Stop: 9:21 AM Medication: Heparin Amount: 1000 units Route: I.V. Start: 9:22 AM Stop: 9:22 AM Medication: Fentanyl Amount: 25 mcg Route: I.V. Start: 9:53 AM Stop: 9:53 AM Medication: Fentanyl Amount: 25 mcg Route: I.V. Start: 9:55 AM Stop: 9:55 AM Medication: Versed Amount: 1 mg Route: I.V. Start: 10:08 AM Stop: 10:08 AM Medication: Heparin Amount: 1000 units Route: I.V. Start: 10:19 AM Stop: 10:19 AM Medication: Heparin Amount: 1000 units Route: I.V. Start: 10:33 AM Stop: 10:33 AM Medication: Fentanyl Amount: 25 mcg Route: I.V. Start: 10:37 AM Stop: 10:37 AM Medication: Heparin Amount: 1000 units Route: I.V. Start: 11:08 AM Stop: 11:08 AM Medication: Heparin Amount: 1000 units Route: I.V. Start: 11:24 AM Stop: 11:24 AM Medication: Versed Amount: 1 mg Route: I.V. Start: 11:30 AM Stop: 11:30 AM Medication: Fentanyl Amount: 25 mcg Route: I.V. Start: 11:42 AM Stop: 11:42 AM Medication: Plavix Amount: 600 mg Route: P.O. I, the attending physician, have reviewed and verified all procedure medications. Yes, all medications given per verbal order History/Risk Factors Hypertension: Yes Dyslipidemia: Yes Peripheral Arterial Disease (PAD): Yes Obesity: No Renal Disease: No Prior Interventions PCI: No CABG: No Valve Surgery: No Report Signatures Finalized by Jovon Quigley MD on 09/30/2023 05:03 PM
[2023-09-23] MEDS: diphenhydrAMINE 50 mg Capsule PO (07:33)
[2023-09-23 07:56] LABS: Basophils # 0.1 10^3/uL (0.0-0.1); Basophils % 1.4 %; Eosinophils # 0.3 10^3/uL (0.0-0.8); Eosinophils % 5.6 %; Hematocrit 36.9 % (37-53); Lymphocytes # 1.2 10^3/uL (0.8-4.8); Lymphocytes % 20.8 %; Mean Corpuscular HGB Conc 34.4 g/dL (30-55); Mean Corpuscular Hemoglobin 33.7 pg (27-33); Mean Corpuscular Volume 97.9 fl (82-101); Mean Platelet Volume 10.8 fL (7.4-10.4); Monocytes # 0.5 10^3/uL (0.2-0.9); Monocytes % 8.8 %; Nucleated Red Blood Cells % 0 %; Platelet Count 222 10^3/cmm (157-399); Red Blood Count 3.77 10^6/uL (3.85-5.65); Red Cell Distribution Width 13.3 % (12.1-15.1); White Blood Count 5.71 10^3/uL (3.29-11.43)
[2023-09-23 08:13] LABS: Blood Urea Nitrogen 10 mg/dL (8-23); Calcium 9.4 mg/dL (8.5-10.5); Carbon Dioxide 26 mmol/L (22-29); Chloride 101 mmol/L (98-107); Creatinine Clr Calc Pharmacy 71.3622; Glucose 119 mg/dL (65-115); Osmolality Calculated 284 mOsm/kg (285-295); Sodium 137 mmol/L (136-145)
[2023-09-23 08:15] LABS: Anion Gap 14.2 (5-19); Potassium 4.2 mmol/L (3.5-5.1)
--- NOTE | 2023-09-23 08:28 | P.HP_ITS ---
Same Day Surgery H&P Indication for Procedure/HPI DATE OF PROCEDURE: September 23, 2023 CHIEF COMPLAINT/INDICATIONFOR SURGICAL PROCEDURE: Severe lifestyle limiting claudication PREOP DIAGNOSIS: Severe lifestyle limiting claudication PLANNED PROCEDURE: Operation Date: 09/23/23 08:30 Proposed Procedures p Cardiac Catheterization 86222, I73.9(Not Applicable) - Jovon Quigley M.D Possible percutaneous coronary intervention 72-year-old man with past medical history of atrial fibrillation, PAD who has been having severe lifestyle limiting claudication for last several months. Bilateral lower right leg is much worse. Referred treating. Medically however not symptoms are very limiting. CTA showed severe PAD. Plan for peripheral angiogram with intention of intervention of right lower extremity. Medications/Allergies* Home Medications Medication Instructions Recorded Confirmed Type albuterol sulfate 90 mcg/actuation 2 puff inhalation Q6H PRN 07/16/22 09/22/23 History aerosol inhaler shortness of breath aspirin 81 mg chewable tablet 81 mg PO DAILY 07/16/22 09/22/23 History cholecalciferol (vitamin D3) 50 50 mcg PO DAILY 07/16/22 09/22/23 History mcg (2,000 unit) capsule fluticasone propionate 50 1 spray intranasal DAILY 07/16/22 09/22/23 History mcg/actuation nasal spray,suspension (Allergy Relief (fluticasone)) olmesartan 20 mg tablet 20 mg PO DAILY 07/16/22 09/22/23 History omega 2-kzc-iyq-fish oil 1,200 mg 1 cap PO 1XD 07/16/22 09/22/23 History (144 mg-216 mg) capsule (Fish Oil) rosuvastatin 20 mg tablet 20 mg PO DAILY 07/16/22 09/22/23 History triamcinolone acetonide 0.1 % 1 applic topical BID 07/16/22 09/22/23 History topical cream metoprolol succinate 25 mg 25 mg PO DAILY 09/22/23 09/22/23 History tablet,extended release 24 hr Allergies/Adverse Reactions Allergy/AdvReac Type Severity Reaction Status Date / Time No Known Allergies Allergy Verified 09/23/23 07:33 Current Medications: Generic Name Dose Route Start Last Admin Trade Name Freq PRN Reason Stop Dose Admin Sodium Chloride 1,000 mls @ 50 mls/hr 09/23/23 07:30 09/23/23 07:33 Sodium Chloride 0.9% IV 09/24/23 03:29 Not Given .Q20H ONE Pertinent History/Comorbid Conditions* Medical History (Updated 05/14/23 @ 00:00 by FLORA Trent) HTN (hypertension) Hyperlipemia COPD (chronic obstructive pulmonary disease) CAD (coronary artery disease) Surgical History (Updated 07/16/22 @ 14:02 by Jovon Quigley M.D) Hx of neck surgery History of transurethral resection of prostate H/O repair of rotator cuff Family History (Updated 09/02/22 @ 08:51 by BENOIT Munoz) Stroke Unknown Social History Smoking and tobacco/nicotine status: former use of tobacco/nicotine Alcohol intake: current Alcohol intake frequency: 3 or more drinks per day Alcohol type: beer Pertinent Exam Findings alert, oriented x 3, clear to auscultation bilaterally and regular rate & rhythm Conscious Sedation Assessment PATIENT ASSESSED PRIOR TO SEDATION, WITH NO CHANGE NOTED: Yes AIRWAY EVAL/ANESTHESIA PLAN: normal airway, ASA III, Local Anesthesia, Risks, benefits & alternatives of sedation and/or procedure discussed and Patient agre es to continue as planned ADDITIONAL INFORMATION: Moderate sedation Recommendations Surgery/Procedure today (Peripheral angiogram with possible intervention) Other Plans: Peripheral angiogram with possible intervention Coding Level of Care Code Acute Code for Edilbertog Russ
--- NOTE | 2023-09-23 09:46 | USCV_ITS ---
Juan Fulton Age: 72 Gender: M : 1950 Exam Date: 09/23/2023 09:51 Ordering Phys: Jovon Quigley M.D ([email or web address]) Technologist: [place] [facility] [place]: guide for acess Findings access gained on rt port captain Color Doppler examination was performed to gain access to the posterior tibial artery. Posterior tibial artery was identified and was found to be patent Conclusions Patent posterior tibial artery. Dr Geoffrey Holm MD [facility] (Electronically Signed) Final Date: 23 Sep 2023 20:32 S
--- NOTE | 2023-09-23 12:30 | PC.NURSE ---
1215 Recieved patient from optical laboratory technician via bed with optical laboratory technician personel, patient very drowsy but answers questions, denies pain. Sheath in left groin with pressure bag and has no bleeding at site. Another sheath in right ankle post tibial sutured in with clear dressing and coban over. Reinforced with pressure dressing as per Dr. Nicole. VSS sinus payton in low 50's. NS IV infusing into right AC at 50ml/hr with approx 500ml in bag.
[2023-09-23 16:01] LABS: Partial Thromboplastin Time 35.8 SECONDS (23.9-36.7)
[2023-09-23] MEDS: sodium chloride 0.9% 1,000 ML 100 ML IV (18:14)
--- NOTE | 2023-09-23 18:18 | PC.NURSE ---
1615 Obtained PTT result of 35, so removed/pulled sheath in right ankle/post tib and held pressure for 30 minutes with no bleeding, bruising or firmness noted. covered site with Op site dressing. Dr. Nicole visited and ask me to remove/pull left groin sheath also. 1700 Pulled left groin sheath and held pressure for 30 minutes with no bleeding, bruising or firmness noted. Covered site with Opsite dressing. Patient HOB remains at 30 degrees or less until 9pm. Patient requests to hold tray until 9pm to eat when cAN raise head. No complaints.
[2023-09-23] MEDS: acetaminophen 325 mg Tablet 650 MG PO (20:25)
[2023-09-24] VITALS (62 sets, daily range): BP systolic 85–148; BP diastolic 44–90; PULSE 67–96; RESP 9–30; TEMP 36.9–37.1; O2SAT 93–99; BMI 29.2
[2023-09-24 03:51] LABS: Basophils # 0.1 10^3/uL (0.0-0.1); Basophils % 0.9 %; Eosinophils # 0.1 10^3/uL (0.0-0.8); Eosinophils % 1.3 %; Hematocrit 29.1 % (37-53); Lymphocytes # 0.7 10^3/uL (0.8-4.8); Lymphocytes % 10.7 %; Mean Corpuscular HGB Conc 33.3 g/dL (30-55); Mean Corpuscular Hemoglobin 33.7 pg (27-33); Mean Platelet Volume 10.6 fL (7.4-10.4); Monocytes # 0.5 10^3/uL (0.2-0.9); Monocytes % 7.9 %; Neutrophils % 78.9 %; Nucleated Red Blood Cells % 0 %; Platelet Count 176 10^3/cmm (157-399); Red Blood Count 2.88 10^6/uL (3.85-5.65); Red Cell Distribution Width 13.3 % (12.1-15.1); White Blood Count 6.72 10^3/uL (3.29-11.43)
[2023-09-24 04:11] LABS: Anion Gap 12.8 (5-19); Blood Urea Nitrogen 7 mg/dL (8-23); Calcium 8.3 mg/dL (8.5-10.5); Carbon Dioxide 23 mmol/L (22-29); Chloride 105 mmol/L (98-107); Glucose 109 mg/dL (65-115); Osmolality Calculated 283 mOsm/kg (285-295); Potassium 3.8 mmol/L (3.5-5.1); Sodium 137 mmol/L (136-145)
[2023-09-24 04:18] LABS: Creatinine Clr Calc Pharmacy 80.0654
[2023-09-24] MEDS: sodium chloride 0.9% 1,000 ML 100 ML IV (04:30)
--- NOTE | 2023-09-24 07:36 | PM.DCS ---
Discharge Providers Date of Admission: September 23, 2023 Date of Discharge: September 24, 2023 Attending Provider at Admission: Jovon Quigley MD Attending Provider at Discharge: Jovon Quigley M.D Primary Care Provider: Nayana Chavez APN Reason for Visit Reason for Visit: I73.9 Brief History: 72-year-old man with past medical history of atrial fibrillation, PAD who has been having severe lifestyle limiting claudication for last several months. Right lower leg is much worse. We were treating medically however now symptoms are very limiting. CTA showed severe PAD. Plan for peripheral angiogram with intention of intervention of right lower extremity. Hospital Course Hospital Course Patient underwent successful revascularization of her right lower extremity. Orbital atherectomy and 3 stents were placed. Patient was discharged home in a stable condition. Physical Exam Narrative: GENERAL: Patient is alert, awake and oriented x3. [] NECK: No jugular vein distension. [] HEENT: No cyanosis. No icterus. No pallor. [] HEART: Regular S1 and S2. No murmur, rub or gallop. [] LUNGS: Clear to auscultate bilaterally. [] CENTRAL NERVOUS SYSTEM: Grossly nonfocal. [] EXTREMITIES: Lower extremities with 1+ edema bilaterally. Discharge Data Studies Completed and Pending Completed Studies During Hospitalization Category Date Time Status US guide vascular access [CV guide vascular access Ultrasound 09/23/23 09:46 Completed [id number]] Routine Pending at discharge Category Date Time Status HABILITATION SPECIALIST request for service Routine Exams 09/23/23 07:30 Ordered Laboratory Results WBC 6.72 10^3/uL (3.29-11.43) 09/24/23 03:06 RBC 2.88 10^6/uL (3.85-5.65) L 09/24/23 03:06 Hgb 9.70 g/dL (11.27-16.99) L 09/24/23 03:06 Hct 29.1 % (37-53) L 09/24/23 03:06 MCV 101.0 fl (82-101) 09/24/23 03:06 MCH 33.7 pg (27-33) H 09/24/23 03:06 MCHC 33.3 g/dL (30-55) 09/24/23 03:06 RDW 13.3 % (12.1-15.1) 09/24/23 03:06 Plt Count 176 10^3/cmm (157-399) 09/24/23 03:06 MPV 10.6 fL (7.4-10.4) H 09/24/23 03:06 Neut % (Auto) 78.9 % 09/24/23 03:06 Lymph % (Auto) 10.7 % 09/24/23 03:06 [place] % (Auto) 7.9 % 09/24/23 03:06 Eos % (Auto) 1.3 % 09/24/23 03:06 Baso % (Auto) 0.9 % 09/24/23 03:06 Neut # (Auto) 5.30 10^3/uL (1.8-7.7) 09/24/23 03:06 Lymph # (Auto) 0.7 10^3/uL (0.8-4.8) L 09/24/23 03:06 [place] # (Auto) 0.5 10^3/uL (0.2-0.9) 09/24/23 03:06 Eos # (Auto) 0.1 10^3/uL (0.0-0.8) 09/24/23 03:06 Baso # (Auto) 0.1 10^3/uL (0.0-0.1) 09/24/23 03:06 Nucleated RBC % (auto) 0 % 09/24/23 03:06 Nucleated RBCs # 0.0 /100WBC 09/24/23 03:06 APTT 35.8 SECONDS (23.9-36.7) 09/23/23 15:01 Sodium 137 mmol/L (136-145) 09/24/23 03:06 Potassium 3.8 mmol/L (3.5-5.1) 09/24/23 03:06 Chloride 105 mmol/L (98-107) 09/24/23 03:06 Carbon Dioxide 23 mmol/L (22-29) 09/24/23 03:06 Anion Gap 12.8 (5-19) 09/24/23 03:06 BUN 7 mg/dL (8-23) L 09/24/23 03:06 Creatinine 0.6 mg/dL (0.7-1.2) L 09/24/23 03:06 GFR Calculation Not Reportable 09/24/23 03:06 Glucose 109 mg/dL (65-115) 09/24/23 03:06 Calculated Osmolality 283 mOsm/kg (285-295) L 09/24/23 03:06 Calcium 8.3 mg/dL (8.5-10.5) L 09/24/23 03:06 Vitals Last Vital Signs Temp 98.7 F 09/24/23 03:47 Pulse 79 09/24/23 06:00 Resp 17 09/24/23 06:00 BP 107/59 09/24/23 06:00 Pulse Ox 99 09/24/23 06:00 O2 Del Method Nasal Cannula 09/24/23 06:00 O2 Flow Rate 2 09/24/23 06:00 Discharge Plan Discharge Patient Disposition: Home Prescriptions: New clopidogrel 75 mg Tablet 75 mg PO DAILY Qty: 90 3RF Continued fluticasone propionate [Allergy Relief (fluticasone)] 50 mcg/actuation spray,suspension 1 spray intranasal DAILY PRN (Reason: ALLERGIES) Rx Instructions: administer into each nostril rosuvastatin 20 mg tablet 20 mg PO DAILY olmesartan 20 mg tablet 20 mg PO DAILY albuterol sulfate 90 mcg/actuation HFA aerosol inhaler 2 puff inhalation Q6H PRN (Reason: shortness of breath) cholecalciferol (vitamin D3) 50 mcg (2,000 unit) capsule 50 mcg PO DAILY omega 3-muf-hzd-fish oil [Fish Oil] 1,200 (144-216) mg capsule 1 cap PO DAILY metoprolol succinate 25 mg tablet extended release 24 hr 25 mg PO DAILY Discontinued aspirin 81 mg tablet,chewable 81 mg PO DAILY No Action ferrous sulfate 325 mg (65 mg iron) Tablet 325 mg PO DAILY aspirin 81 mg tablet,delayed release (DR/EC) 81 mg PO DAILY Qty: 30 0RF Discharge Orders: Discharge Order (Routine); Ordered 09/24/23 Ordered By: Jovon Quigley Referrals: Nayana Chavez APN [Primary Care Provider] - 09/28/23 9:40 am (will need post hospital inpatient stay , for peripheral angiogram post peripheral stents ,wound checks and lab test for post angiogram( BMP) ) Malinda Campuzano FNP [Nurse Practitioner] - 10/25/23 2:00 pm Diet: Cardiac Activity: Increase activity as tolerated Patient Instructions: Clopidogrel (By mouth) (Plavix), Peripheral Vascular Stent Placement (DC), Peripheral Vascular Angioplasty (DC), Post Angiogram Home Care Instructions Discharge Date/Time: 09/24/23 10:48 Discharge Attestations Time Spent in Discharge Care*: less than 30 min Quality Metrics Clinical Quality Measures [ No reported AMI, CVA or VTE this stay] Coding Level of Care Code Acute Code for Chg Fwdarshan
[2023-09-24] MEDS: aspirin 81 mg EC Tablet PO (08:57)
[2023-09-24] MEDS: clopidogrel 75 mg Tablet PO (08:57)
--- NOTE | 2023-09-24 10:47 | PC.NURSE ---
Discharge Note Patient discharged to [home] via [w/c to POV] accompanied by [his brother]. Discharge instructions reviewed with patient and/or customer sales representative. Mobile pharmacy medications and/or prescriptions provided. Belongings/home medications returned.
== END 2023-09-24 10:48 | disposition home or self-care (01) ==
LOC: CCL 07:17 → ICU 23:51
PROVIDERS: PCP Nurse Practitioner Family; Visit Provider Internal Medicine
DX: I70.221 Atherosclerosis of native arteries of extremities with rest pain, right leg (principal); I70.92 Chronic total occlusion of artery of the extremities; I48.91 Unspecified atrial fibrillation; I10 Essential (primary) hypertension; E78.5 Hyperlipidemia, unspecified; J44.9 Chronic obstructive pulmonary disease, unspecified; I25.10 Atherosclerotic heart disease of native coronary artery without angina pectoris; Z87.891 Personal history of nicotine dependence
CPT/HCPCS: 36415; 37227; 75625; 75710; 76937; 80048; 85025; 85347; 85730; 96365; 96374; 96375; 96376; 99152; 99153; C1724; C1725; C1769; C1876; C1887; C1894; J1644; J2250; J3010; J3490; J7030; Q0163; Q9967

== ENCOUNTER 2023-10-05 08:26 | Emergency (ER) | payer MEDICARE, SELFPAY ==
--- NOTE | 2023-10-05 08:32 | ECG_ITS ---
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 Measurements Intervals [place] Rate: 93 P: 84 NV: 167 QRS: 73 QRSD: 93 T: 68 QT: 359 QTc: 448 Interpretive Statements SINUS RHYTHM WITH FREQUENT VENTRICULAR PREMATURE COMPLEXES MODERATE ST DEPRESSION [0.05+ mV ST DEPRESSION] Compared to ECG 05/06/2023 19:23:56 Ventricular premature complex(es) now present ST (T wave) deviation now present Electronically Signed On 10-05-2023 17:20:25 CDT by Jovon Quigley M.D. https://[email or web address].iHook[employer] Socialnorth mississippi state hospitalAceris 3D Inspectionway[facility] hospital.[employer]/store/NU/[id number] f
[2023-10-05 08:33] VITALS: BP 167/75; PULSE 98; RESP 16; TEMP 36.8; O2SAT 98
--- NOTE | 2023-10-05 08:35 | XRR_ITS ---
PROCEDURE INFORMATION: Exam: XR Chest Exam date and time: 10/05/2023 8:45 AM Age: 72 years old Clinical indication: Pain; Angina pectoris; Additional info: Chest pain TECHNIQUE: Imaging protocol: Radiologic exam of the chest. Views: 1 view. COMPARISON: CR (CHEST, ) 05/06/2023 5:21 PM FINDINGS: Lungs: Unremarkable. No consolidation. Pleural spaces: Unremarkable. No pleural effusion. No pneumothorax. Heart/Mediastinum: Unremarkable. No cardiomegaly. Bones/joints: Unremarkable. XR/XR chest 1V portable [id number] IMPRESSION: No acute findings. No change.
[2023-10-05 08:49] LABS: Basophils # 0.1 10^3/uL (0.0-0.1); Basophils % 0.9 %; Eosinophils # 0.3 10^3/uL (0.0-0.8); Eosinophils % 4.8 %; Hematocrit 33.2 % (37-53); Lymphocytes # 0.8 10^3/uL (0.8-4.8); Lymphocytes % 14.7 %; Mean Corpuscular HGB Conc 34.3 g/dL (30-55); Mean Corpuscular Hemoglobin 34.3 pg (27-33); Mean Platelet Volume 9.3 fL (7.4-10.4); Monocytes # 0.5 10^3/uL (0.2-0.9); Monocytes % 8.4 %; Neutrophils # 3.79 10^3/uL (1.8-7.7); Neutrophils % 70.6 %; Nucleated Red Blood Cells % 0 %; Platelet Count 282 10^3/cmm (157-399); Red Blood Count 3.32 10^6/uL (3.85-5.65); Red Cell Distribution Width 14.4 % (12.1-15.1); White Blood Count 5.37 10^3/uL (3.29-11.43)
--- NOTE | 2023-10-05 08:50 | ED_ITS ---
HPI - Chest Pain 2 General: Chief Complaint: Chest Pain Stated Complaint: right leg swelling, chest pain Time Seen by Provider: 10/05/23 08:35 Source: patient Mode of arrival: ambulatory History of Present Illness: 72-year-old male presents emergency room complaining of swelling intermittently of the right leg. Few weeks ago he had a angiogram done for the lower extremities he did have little difficulty required a retrograde tibial artery approach. They did not arthrectomy there was some dissection. Overall though he did well postoperatively seem to have good flow the patient is not having any claudication. He has localized pain distally in the posterior tibial artery in the lower extremity where the entered. He does have quite a bit of ecchymosis in the groins bilaterally but more so in the right leg he states the swelling is worse when he is up and active throughout the day gets better when he is laying down overnight. Was having some occasional palpitations and mild chest discomfort that only last for a few seconds and then resolves. He has not really taken anything to alleviate any of his symptoms. MD complaint: chest pain Onset (ago): week(s) Timing of current episode: episodic Relieving factors: nothing Exacerbating factors: nothing Associated symptoms: Deny abdominal pain, diaphoresis, dyspnea, fever(s), leg edema, nausea, palpitations, sense of impending doom, syncope or vomiting Treatment prior to arrival: none Review of Systems 2 Const: Denies: fever(s), chills or diaphoresis Card: Denies: chest pain, palpitations or syncope Resp: Denies: dyspnea GI: Denies: abdominal pain, nausea or vomiting : Denies: dysuria, urinary frequency or urinary urgency Musc: Denies: neck pain or back pain Skin/Breast: Denies: rash PFSH ED 2 PFSH: Medical History HTN (hypertension) Hyperlipemia COPD (chronic obstructive pulmonary disease) CAD (coronary artery disease) Surgical History Hx of neck surgery History of transurethral resection of prostate H/O repair of rotator cuff Family History Unknown Stroke Social History (Reviewed 10/05/23 @ 08:52 by ZACK Miramontes Smoking and tobacco/nicotine status: former use of tobacco/nicotine Alcohol intake: current Alcohol intake frequency: 3 or more drinks per day Alcohol type: beer Physical Exam 2 Const: COMMON NORMALS: no acute distress GENERAL APPEARANCE: cooperative and comfortable ORIENTATION/CONSCIOUSNESS: Yes awake, Yes oriented to person, Yes oriented to place and Yes oriented to time HENMT: COMMON NORMALS: normocephalic, atraumatic and hearing grossly normal bilaterally HEAD & SCALP: normocephalic and atraumatic Resp: COMMON NORMALS: normal respiratory effort, No retractions, No use of accessory muscles and clear to auscultation bilaterally AUSCULTATION: clear to auscultation bilaterally Cardio: COMMON NORMALS: regular rate, regular rhythm and No murmurs present (Cardio) RATE: regular rate RHYTHM: regular rhythm GI: COMMON NORMALS: Soft to palpation and No hepatosplenomegaly present A USCULTATION: Yes normoactive bowel sounds PALPATION: Yes Soft to palpation, No Tenderness to palpation present (GI), No Guarding due to palpation present (GI) and Yes No hepatosplenomegaly present Extremity: OTHER: Examination of the right leg. There is ecchymosis scattered throughout largely in dependent areas. Bruising is healing at several different rates. No acute inflammation redness or erythema or induration. Dorsalis pedis posterior tibialis pulses easily palpable popliteal pulse easily palpable. No pulsatile masses noted with palpation in the groin. Neuro: SENSORIUM/ORIENTATION: Yes oriented to person, Yes oriented to place and Yes oriented to time Skin: COMMON NORMALS: no rashes or lesions noted GENERAL SKIN EXAM: no rashes or lesions noted Course 2 Vital Signs: Vital signs: Vital Signs Temperature 98.2 F 10/05/23 12:02 Pulse Rate 83 10/05/23 12:02 Respiratory Rate 22 H 10/05/23 12:02 Blood Pressure 164/68 10/05/23 12:02 Pulse Oximetry 98 10/05/23 12:02 Oxygen Delivery Me thod Room Air 10/05/23 10:35 MDM - Chest Pain Medical Decision Making Labs and imaging reviewed. Discussed Dr. Quigley who previously did his peripheral vascular angiography. They did have some difficulty and had a small dissection that did not disrupt flow. Vascular studies today on ultrasound shows good arterial flow no venous thrombosis. Dr. Quigley did come and see the patient he advised us to have him stop the Eliquis and the cilostazol add baby aspirin all along with continuing his Plavix. He also asked that we set up an outpatient Lexiscan sestamibi stress test. Medical Records I reviewed the patient's medical records. Lab Data I reviewed the patient's lab results. 10/05/23 08:41 10/05/23 08:41 Radiology Impressions Chest X-Ray 10/05/23 08:35 IMPRESSION: No acute findings. No change. Duplex Scan Lower Extremity Artery 10/05/23 08:59 IMPRESSION: No stenosis or occlusion. Laboratory Results WBC 5.37 10^3/uL (3.29-11.43) 10/05/23 08:41 RBC 3.32 10^6/uL (3.85-5.65) L 10/05/23 08:41 Hgb 11.40 g/dL (11.27-16.99) 10/05/23 08:41 Hct 33.2 % (37-53) L 10/05/23 08:41 MCV 100.0 fl (82-101) 10/05/23 08:41 MCH 34.3 pg (27-33) H 10/05/23 08:41 MCHC 34.3 g/dL (30-55) 10/05/23 08:41 RDW 14.4 % (12.1-15.1) 10/05/23 08:41 Plt Count 282 10^3/cmm (157-399) 10/05/23 08:41 MPV 9.3 fL (7.4-10.4) 10/05/23 08:41 Neut % (Auto) 70.6 % 10/05/23 08:41 Lymph % (Auto) 14.7 % 10/05/23 08:41 Mitchell % (Auto) 8.4 % 10/05/23 08:41 Eos % (Auto) 4.8 % 10/05/23 08:41 Baso % (Auto) 0.9 % 10/05/23 08:41 Neut # (Auto) 3.79 10^3/uL (1.8-7.7) 10/05/23 08:41 Lymph # (Auto) 0.8 10^3/uL (0.8-4.8) 10/05/23 08:41 Mitchell # (Auto) 0.5 10^3/uL (0.2-0.9) 10/05/23 08:41 Eos # (Auto) 0.3 10^3/uL (0.0-0.8) 10/05/23 08:41 Baso # (Auto) 0.1 10^3/uL (0.0-0.1) 10/05/23 08:41 Nucleated RBC % (auto) 0 % 10/05/23 08:41 Nucleated RBCs # 0.0 /100WBC 10/05/23 08:41 Sodium 137 mmol/L (136-145) 10/05/23 08:41 Potassium 4.0 mmol/L (3.5-5.1) 10/05/23 08:41 Chloride 99 mmol/L (98-107) 10/05/23 08:41 Carbon Dioxide 23 mmol/L (22-29) 10/05/23 08:41 Anion Gap 19.0 (5-19) 10/05/23 08:41 BUN 6 mg/dL (8-23) L 10/05/23 08:41 Creatinine 0.8 mg/dL (0.7-1.2) 10/05/23 08:41 GFR Calculation Not Reportable 10/05/23 08:41 Glucose 105 mg/dL (65-115) 10/05/23 08:41 Calculated Osmolality 282 mOsm/kg (285-295) L 10/05/23 08:41 Calcium 9.6 mg/dL (8.5-10.5) 10/05/23 08:41 Total Bilirubin 1.4 mg/dL (0.15-1.2) H 10/05/23 08:41 AST 18 U/L (0-40) 10/05/23 08:41 ALT 13 U/L (0-41) 10/05/23 08:41 Alkaline Phosphatase 96 U/L (40-130) 10/05/23 08:41 Troponin T Baseline 17 ng/L (0-15) H 10/05/23 08:41 Troponin T 120 Minute 15.35 ng/L (0-15) H 10/05/23 10:22 Delta Troponin T -1.65 ABS# (0-10) L 10/05/23 10:22 Total Protein 7.4 g/dL (6.6-8.7) 10/05/23 08:41 Albumin 4.5 g/dL (3.5-5.2) 10/05/23 08:41 Globulin 2.9 g/dL (1.3-4.6) 10/05/23 08:41 All radiology interpretation(s) finalized by discharge Discharge Plan Discharge Patient Disposition: Home Clinical Impression: Leg edema, right, PAD (peripheral artery disease), Chest pain Condition: Stable Prescriptions: New aspirin 81 mg tablet,delayed release (DR/EC) 81 mg PO DAILY Qty: 30 0RF Discontinued Eliquis 5 mg tablet 5 mg PO BID Qty: 180 3RF cilostazol 50 mg tablet 50 mg PO BID Qty: 180 3RF No Action fluticasone propionate [Allergy Relief (fluticasone)] 50 mcg/actuation spray,suspension 1 spray intranasal DAILY PRN (Reason: ALLERGIES) Rx Instructions: administer into each nostril rosuvastatin 20 mg tablet 20 mg PO DAILY olmesartan 20 mg tablet 20 mg PO DAILY albuterol sulfate 90 mcg/actuation HFA aerosol inhaler 2 puff inhalation Q6H PRN (Reason: shortness of breath) cholecalciferol (vitamin D3) 50 mcg (2,000 unit) capsule 50 mcg PO DAILY omega 5-srp-scu-fish oil [Fish Oil] 1,200 (144-216) mg capsule 1 cap PO DAILY metoprolol succinate 25 mg tablet extended release 24 hr 25 mg PO DAILY clopidogrel 75 mg Tablet 75 mg PO DAILY Qty: 90 3RF ferrous sulfate 325 mg (65 mg iron) Tablet 325 mg PO DAILY Discharge Orders: Discharge ED (Routine); Ordered 10/05/23 Ordered By: Roland Brooke Referrals: Nayana Chavez APN [Primary Care Provider] - Discharge Diet: Usual diet Discharge Activity: Resume usual activity Patient Instructions: Opioid Safety, Pain Management Activity Restrictions/Additional Instructions: Thank you for choosing [facility] for your healthcare needs today. It is very important that you follow up as instructed or that you return to the Emergency Department should you have concerns or if your condition changes or worsens in any way. Ultrasound of your leg did not show any compromise of arterial flow and there was no venous clot. Reviewed your case with Dr. Quigley who would also come to see you. He recommends that you stop the cilostazol and the Eliquis continue clopidogrel and take 1 baby aspirin daily. Edition will set you up for an outpatient cardiac stress test. Follow-up with Dr. Quigley in the office. Return if you have worsening symptoms. Your leg swelling is likely due but to blood in the tissue from your procedure. Recommend elevating is much as possible. Coding Level of Care Code ED Kiln Packer for Grace Solano
--- NOTE | 2023-10-05 08:50 | USCV_ITS ---
AramJuan gunter Age: 72 Gender: M : 1950 Exam Date: 10/05/2023 09:15 Ordering Phys: Roland Brooke DO Technologist: [place] [facility] [place]: PROCEDURES: Venous duplex imaging was performed in only the right lower extremity. On the right side, the common femoral, superficial femoral, profunda femoral, popliteal, posterior tibial, greater saphenous veins and the peroneal trunk were identified and interrogated in the standard fashion. These veins were found to be easily compressible with spontaneous blood flow. No evidence of insufficiency or thrombus noted. FINDINGS: normal us, no dvt CONCLUSIONS No evidence of right lower extremity DVT. Enlarged but normal appearing inguinal lymph node likely reactive Heriberto Lyle MD (Electronically Signed) Final Date: 05 October 2023 14:26 S
--- NOTE | 2023-10-05 08:50 | USCV_ITS ---
Juan Fulton Age: 72 Gender: M : 1950 Exam Date: 10/05/2023 09:06 Ordering Phys: Roland Brooke DO Technologist: [place] [facility] [place]: post left angiogram on left le. pain on rt at this time Findings no evidence of psuedo anuersym or hematoma Conclusions No evidence of pseudoaneurysm Left groin Heriberto Lyle MD (Electronically Signed) Final Date: 05 October 2023 14:17 S
--- NOTE | 2023-10-05 08:59 | USR_ITS ---
PROCEDURE INFORMATION: Exam: US Duplex Right Lower Extremity Arteries Or Arterial Bypass Grafts Exam date and time: 10/05/2023 9:30 AM Age: 72 years old Clinical indication: Screening exam; Previous arterial dissection. Other modality May be beneficial; Prior surgery; Surgery date: 6+ months; Surgery type: Stents; Additional info: Pad - previous arterial dissection TECHNIQUE: Imaging protocol: Right Real-time duplex scan of the arteries or arterial bypass grafts of the right lower extremity with 2-D de la cruz scale, color Doppler flow and spectral waveform analysis. Images documented and saved. COMPARISON: CT angio abd aorta runof [id number] 02/01/2023 3:38 PM FINDINGS: Right common femoral artery: No occlusion or significant stenosis. Normal waveform. No pseudoaneurysm in the inguinal region. Right superficial femoral artery: No occlusion or significant stenosis. Normal waveform. Right popliteal artery: No occlusion or significant stenosis. Normal waveform. Right calf/foot arteries: No occlusion or significant stenosis in the visualized arteries. Normal waveforms. Dorsalis pedis artery is patent. Soft tissues: No hematoma or collection. Other findings: Diffuse areas of atherosclerotic plaque formation. Suspect intermittent PVCs. US/[place] [id number] IMPRESSION: No stenosis or occlusion.
[2023-10-05 09:06] LABS: Alanine Aminotransferase 13 U/L (0-41); Albumin Level 4.5 g/dL (3.5-5.2); Alkaline Phosphatase 96 U/L (40-130); Aspartate Amino Transferase 18 U/L (0-40); Blood Urea Nitrogen 6 mg/dL (8-23); Calcium 9.6 mg/dL (8.5-10.5); Carbon Dioxide 23 mmol/L (22-29); Chloride 99 mmol/L (98-107); Creatinine Clr Calc Pharmacy 80.0654; Globulin 2.9 g/dL (1.3-4.6); Glucose 105 mg/dL (65-115); Osmolality Calculated 282 mOsm/kg (285-295); Sodium 137 mmol/L (136-145); Total Bilirubin 1.4 mg/dL (0.15-1.2); Total Protein 7.4 g/dL (6.6-8.7)
[2023-10-05 09:07] LABS: Troponin(5th) Baseline 17 ng/L (0-15)
[2023-10-05] MEDS: aspirin 81 mg Chew Tablet 324 MG PO (09:16)
[2023-10-05 09:18] VITALS: BP 152/56; PULSE 91; O2SAT 97
[2023-10-05 10:35] VITALS: BP 164/68; PULSE 83; RESP 22; O2SAT 98
[2023-10-05 10:50] LABS: Troponin 5 2HR 15.35 ng/L (0-15)
[2023-10-05 10:51] LABS: Troponin 5 2HR Delta -1.65 ABS# (0-10)
--- NOTE | 2023-10-05 11:31 | ECG_ITS ---
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 Measurements Intervals [place] Rate: 75 P: 77 [place]: 169 QRS: 72 QRSD: 93 T: 63 QT: 382 QTc: 427 Interpretive Statements SINUS RHYTHM WITH OCCASIONAL VENTRICULAR PREMATURE COMPLEXES Compared to ECG 10/05/2023 08:32:46 ST (T wave) deviation no longer present Electronically Signed On 10-05-2023 17:23:45 CDT by Jovon Quigley M.D. [id number]
--- NOTE | 2023-10-05 11:39 | P.CONIM_ITS ---
Providers/Reason For Consult 2 Primary Care Provider: Nayana Chavez APN History of Present Illness History of Present Illness Juan Fulton is a 72 year old male Medications/Allergies Home Medications Medication Instructions Recorded Confirmed Last Taken Type albuterol sulfate 90 mcg/actuation 2 puff inhalation Q6H PRN 07/16/22 10/05/23 Unknown History aerosol inhaler shortness of breath cholecalciferol (vitamin D3) 50 50 mcg PO DAILY 07/16/22 10/05/23 10/05/23 History mcg (2,000 unit) capsule fluticasone propionate 50 1 spray intranasal DAILY PRN 07/16/22 10/05/23 09/22/23 History mcg/actuation nasal ALLERGIES spray,suspension (Allergy Relief (fluticasone)) olmesartan 20 mg tablet 20 mg PO DAILY 07/16/22 10/05/23 10/05/23 History omega 2-luc-mwr-fish oil 1,200 mg 1 cap PO DAILY 07/16/22 10/05/23 10/05/23 History (144 mg-216 mg) capsule (Fish Oil) rosuvastatin 20 mg tablet 20 mg PO DAILY 07/16/22 10/05/23 10/04/23 History metoprolol succinate 25 mg 25 mg PO DAILY 09/22/23 10/05/23 10/05/23 History tablet,extended release 24 hr clopidogrel 75 mg tablet 75 mg PO DAILY #90 tabs 09/24/23 10/05/23 10/05/23 Rx aspirin 81 mg tablet,delayed 81 mg PO DAILY #30 tabs 10/05/23 Unknown Rx release ferrous sulfate 325 mg (65 mg 325 mg PO DAILY 10/05/23 10/05/23 10/04/23 History iron) tablet Allergies Allergy/AdvReac Type Severity Reaction Status Date / Time No Known Allergies Allergy Verified 09/23/23 07:33 PFSH Acute 2 PFSH: Medical History HTN (hypertension) Hyperlipemia COPD (chronic obstructive pulmonary disease) CAD (coronary artery disease) Surgical History Hx of neck surgery History of transurethral resection of prostate H/O repair of rotator cuff Family History Unknown Stroke Social History Smoking and tobacco/nicotine status: former use of tobacco/nicotine Alcohol intake: current Alcohol intake frequency: 3 or more drinks per day Alcohol type: beer Vitals/I&O/Wt Last Vital Signs Temp 98.2 F 10/05/23 08:33 Pulse 83 10/05/23 10:35 Resp 22 H 10/05/23 10:35 BP 164/68 10/05/23 10:35 Pulse Ox 98 10/05/23 10:35 O2 Del Method Room Air 10/05/23 10:35 Weight last 48 hrs Weight 165 lb Data 10/05/23 08:41 10/05/23 08:41 Coding Level of Care Code Acute Code for Grace Solano
[2023-10-05 12:02] VITALS: BP 164/68; PULSE 83; RESP 22; TEMP 36.8; O2SAT 98
== END 2023-10-05 12:03 | disposition home or self-care (01) ==
PROVIDERS: Emergency Provider Family Medicine; PCP Nurse Practitioner Family
DX: R60.0 Localized edema (principal); I73.9 Peripheral vascular disease, unspecified; R07.9 Chest pain, unspecified; Z79.02 Long term (current) use of antithrombotics/antiplatelets; I10 Essential (primary) hypertension; E78.5 Hyperlipidemia, unspecified; J44.9 Chronic obstructive pulmonary disease, unspecified; I25.10 Atherosclerotic heart disease of native coronary artery without angina pectoris; Z87.891 Personal history of nicotine dependence
CPT/HCPCS: 36415; 71045; 80053; 84484; 85025; 93005; 93926; 93971; 99285

== ENCOUNTER → 2023-10-08 10:58 | Outpatient (BNVA) | payer MEDICARE, SELFPAY | PROVIDERS: PCP Nurse Practitioner Family; Referring Provider Nurse Practitioner Family; Visit Provider Surgery | DX: K92.1 Melena (principal); Z80.0 Family history of malignant neoplasm of digestive organs | CPT/HCPCS: 99204 ==

== ENCOUNTER → 2023-10-25 13:53 | Outpatient (BNVA) | payer MEDICARE, SELFPAY | PROVIDERS: PCP Nurse Practitioner Family; Visit Provider Nurse Practitioner Family | DX: I25.10 Atherosclerotic heart disease of native coronary artery without angina pectoris (principal); I10 Essential (primary) hypertension; E78.5 Hyperlipidemia, unspecified | CPT/HCPCS: 99214 ==

== ENCOUNTER 2023-12-01 08:48 | Outpatient (CLI) | payer MEDICARE, SELFPAY ==
--- NOTE | 2023-12-01 09:07 | ECG_ITS ---
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 Interpretive Statements NAME OF STUDY: EXERCISE SESTAMIBI STRESS TEST INDICATION: [Chest Pain, ] EXERCISE DATA: The patient was exercised by Gerald protocol. Baseline heart rate was 74 beats per minute. Baseline blood pressure was 147/86 millimeters of mercury. Maximal predicted heart rate was 148 beats per minute. Maximum heart rate achieved was 163, which was 110% of the maximum predicted heart rate. Maximum blood pressure was 195/82 millimeters of mercury. Total exercise time was 2 minutes 55 seconds. Maximum METs achieved was 4.6. The reason for ending the test was maximal effort achieved. The patient complained of shortness of breath during the stress test, which then resolved at the end of the test. ELECTROCARDIOGRAM: BASELINE: Showed atrial fibrillation, normal axis, no significant ST-T changes at the baseline noted. [] EXERCISE: At the peak exercise level, patient had A-fib with RVR [] No significant ST-T changes suggestive of ischemia noted. [] RECOVERY: During the recovery period, heart rate dropped. No significant ST-T changes in the recovery suggestive of ischemia noted. [] CONCLUSION: 1. Exercise capacity is poor. 2. Heart rate response was appropriate. However patient was in A-fib at baseline and went into A-fib with RVR 3. Blood pressure response was appropriate. 4. Symptoms not suggestive of ischemia. 5. Electrocardiogram portion of the stress test was not suggestive of ischemia. 6. Nuclear scan will be documented separately. Electronically Signed On 12-05-2023 21:16:53 CDT by Jovon Quigley M.D. [id number]
--- NOTE | 2023-12-01 09:07 | NMCV_ITS ---
NM anabela perf SPECT r/s* [id number] Juan Fulton Age: 73 Gender: M : 1950 Exam Date: 12/01/2023 09:41 Ordering Phys: Malinda Campuzano Technologist: MADI Madrigal Exam Location: [facility] Indications: CP STRESS TEST Please see separate stress test report in Ephiphany for full findings IMAGE PROTOCOL Rest/Stress 1 Exercise Day Radiopharmaceutical Dose (mCi) Administration Site Administered by Rest: Tc-99m 10.8 IV MADI Madrigal Sestamibi Stress:Tc-99m 32.2 IV MADI Madrigal Sestamibi Rest: 01-Dec-2023 60 Discovery 630 Stress: 01-Dec-2023 30 Discovery 630 0.4mg Lexiscan. Images obtained in supine and prone position. SPECT RESULTS Technical Quality: Good Raw Data Analysis: Normal Image Corrections: No attenuation or motion correction applied Summed Stress Score: 2 Summed Rest Score: 0 Summed Difference Score: 2 PERFUSION FINDINGS There is reduced radiotracer uptake seen in inferior wall which resolves on prone imaging. This is consistent with attenuation artifact. No evidence of ischemia. FUNCTIONAL RESULTS (calculated via Gated SPECT) Stress Image LV EF (%): 58 Stress EDV (mL):80 TID: 0.96 Stress ESV (mL):34 FUNCTIONAL FINDINGS: There is normal left ventricular systolic function. IMPRESSIONS 1. Attenuation artifact seen in inferior wall. No evidence of ischemia. 2. LV systolic function is normal. Jovon Quigley MD (Electronically Signed) Final Date: 02 December 2023 11:37 S
[2023-12-01 09:12] VITALS: BMI 27.4
[2023-12-01 10:42] VITALS: BP 182/85; PULSE 94
== END 2023-12-01 08:49 | disposition home or self-care (01) ==
PROVIDERS: PCP Nurse Practitioner Family; Visit Provider Nurse Practitioner Family
DX: I25.10 Atherosclerotic heart disease of native coronary artery without angina pectoris (principal); I73.9 Peripheral vascular disease, unspecified; I10 Essential (primary) hypertension; E78.5 Hyperlipidemia, unspecified; R94.39 Abnormal result of other cardiovascular function study; I48.91 Unspecified atrial fibrillation
CPT/HCPCS: 36415; 78452; 93017; A9500

== ENCOUNTER 2023-12-08 08:06 | Day surgery (SDC) | payer MEDICARE, SELFPAY ==
[2023-12-08 08:20] VITALS: BP 154/89; PULSE 88; RESP 16; TEMP 36.6; O2SAT 98
[2023-12-08 08:21] VITALS: BMI 27.8
[2023-12-08] MEDS: sodium chloride 0.9% 1,000 ML 30 ML IV (08:34)
--- NOTE | 2023-12-08 09:04 | ANES.PREANE2 ---
Pre-Anesthetic Assessment Height/Weight: Height 1.63 m Weight 73.482 kg Temp Pulse Resp BP Pulse Ox O2 Del Method 97.9 F 88 16 154/89 98 Room Air 12/08/23 08:20 12/08/23 08:20 12/08/23 08:20 12/08/23 08:20 12/08/23 08:20 12/08/23 08:20 Preop Diagnosis: blood in stool Operation Date: 12/08/23 09:30 Proposed Procedures p Colonoscopy 60710 , G0105, Z80.0, K92.1(Not Applicable) - Barrington Henriquez DO Familial anesthetic complications: none Was Beta Jenna taken within 24 hours: Yes Was Clonidine taken within 24 hours: N/A Last intake: Intake Last Liquid Date 12/07/23 Last Liquid Time 17:00 Last Solid Date 12/06/23 Last Solid Time 17:00 Social Alcohol occassional beer and MJ Exam alert, oriented x 3, clear to auscultation bilaterally and regular rate & rhythm Airway Submandibular: within normal limits Cervical ROM: within normal limits Mallampati: Class II Dentition: chipped History/ROS No significant history except as noted and No significant complaints Pulmonary Chronic Obstructive Pulmonary Disease CV/HEM Arrythmia, Coronary Artery Disease, Myocardial Infarction and Peripheral Vascular Disease None reported Hepatic None reported GI Gastroesophageal Reflux Disease Metabolic None reported Musc/skel None reported Neuropsych Cerebrovascular Accident States easily confused Anesthetic Plan ASA status: 3 Anesthesia: MAC Risk of > 500 ml blood loss (7ml/kg in children): No Medications/Allergies Home Medications Medication Instructions Recorded Confirmed Last Taken Type albuterol sulfate 90 mcg/actuation 2 puff inhalation Q6H PRN 07/16/22 12/06/23 Unknown History aerosol inhaler shortness of breath cholecalciferol (vitamin D3) 50 50 mcg PO DAILY 07/16/22 12/08/23 12/07/23 History mcg (2,000 unit) capsule fluticasone propionate 50 1 spray intranasal DAILY PRN 07/16/22 12/06/23 12/06/23 History mcg/actuation nasal ALLERGIES spray,suspension (Allergy Relief (fluticasone)) olmesartan 20 mg tablet 20 mg PO DAILY 07/16/22 12/08/23 12/07/23 History omega 9-mov-bgt-fish oil 1,200 mg 1 cap PO DAILY 07/16/22 12/08/23 12/07/23 History (144 mg-216 mg) capsule (Fish Oil) rosuvastatin 20 mg tablet 20 mg PO DAILY 07/16/22 12/08/23 12/07/23 History metoprolol succinate 25 mg 25 mg PO DAILY 09/22/23 12/08/23 12/08/23 History tablet,extended release 24 hr clopidogrel 75 mg tablet 75 mg PO DAILY #90 tabs 09/24/23 12/06/23 12/02/23 Rx aspirin 81 mg tablet,delayed 81 mg PO DAILY #30 tabs 10/05/23 12/08/23 12/07/23 Rx release ferrous sulfate 325 mg (65 mg 325 mg PO DAILY 10/05/23 12/08/23 12/07/23 History iron) tablet pantoprazole 40 mg tablet,delayed 40 mg PO BID 6 weeks #84 tabs 10/08/23 12/08/23 12/07/23 Rx release (Protonix) Allergies Allergy/AdvReac Type Severity Reaction Status Date / Time No Known Allergies Allergy Verified 12/06/23 11:24 Current Medications Generic Name Dose Route Start Last Admin Trade Name Freq PRN Reason Stop Dose Admin Sodium Chloride 1,000 mls @ 30 mls/hr 12/08/23 08:15 12/08/23 08:34 Sodium Chloride 0.9% IV 12/09/23 08:14 30 mls/hr .Q24H YOCASTA Administration PFSH Anesthesia Medical History Family history of colon cancer HTN (hypertension) Hyperlipemia COPD (chronic obstructive pulmonary disease) CAD (coronary artery disease) Surgical History Hx of neck surgery History of transurethral resection of prostate H/O repair of rotator cuff Family History Unknown Stroke Social History Smoking and tobacco/nicotine status: former use of tobacco/nicotine Alcohol intake: current Alcohol intake frequency: 3 or more drinks per day Alcohol type: beer Data Anesthesia Cardiac Studies: Sestamibi Stress Test (Cardiology) 12/01/23 Cardiac Event Monitor 01/14/23
--- NOTE | 2023-12-08 11:19 | PM.HP ---
Providers/Chief Complaint Primary Care Provider: Nayana Chavez APN Chief Complaint: Z80.0 History of Present Illness Juan Fulton is a 73 year old male Review of Systems General: Reports: 10 or more systems reviewed and unremarkable except in HPI and below Medications/Allergies Home Medications Medication Instructions Recorded Confirmed Last Taken Type albuterol sulfate 90 mcg/actuation 2 puff inhalation Q6H PRN 07/16/22 12/06/23 Unknown History aerosol inhaler shortness of breath cholecalciferol (vitamin D3) 50 50 mcg PO DAILY 07/16/22 12/08/23 12/07/23 History mcg (2,000 unit) capsule fluticasone propionate 50 1 spray intranasal DAILY PRN 07/16/22 12/06/23 12/06/23 History mcg/actuation nasal ALLERGIES spray,suspension (Allergy Relief (fluticasone)) olmesartan 20 mg tablet 20 mg PO DAILY 07/16/22 12/08/23 12/07/23 History omega 7-fht-joy-fish oil 1,200 mg 1 cap PO DAILY 07/16/22 12/08/23 12/07/23 History (144 mg-216 mg) capsule (Fish Oil) rosuvastatin 20 mg tablet 20 mg PO DAILY 07/16/22 12/08/23 12/07/23 History metoprolol succinate 25 mg 25 mg PO DAILY 09/22/23 12/08/23 12/08/23 History tablet,extended release 24 hr clopidogrel 75 mg tablet 75 mg PO DAILY #90 tabs 09/24/23 12/06/23 12/02/23 Rx aspirin 81 mg tablet,delayed 81 mg PO DAILY #30 tabs 10/05/23 12/08/23 12/07/23 Rx release ferrous sulfate 325 mg (65 mg 325 mg PO DAILY 10/05/23 12/08/23 12/07/23 History iron) tablet pantoprazole 40 mg tablet,delayed 40 mg PO BID 6 weeks #84 tabs 10/08/23 12/08/23 12/07/23 Rx release (Protonix) Allergies Allergy/AdvReac Type Severity Reaction Status Date / Time No Known Allergies Allergy Verified 12/06/23 11:24 PFSH Acute PFSH: Medical History Family history of colon cancer HTN (hypertension) Hyperlipemia COPD (chronic obstructive pulmonary disease) CAD (coronary artery disease) Surgical History Hx of neck surgery History of transurethral resection of prostate H/O repair of rotator cuff Family History Unknown Stroke Social History Smoking and tobacco/nicotine status: former use of tobacco/nicotine Alcohol intake: current Alcohol intake frequency: 3 or more drinks per day Alcohol type: beer Vitals/I&O/Wt Last Vital Signs Temp 97.9 F 12/08/23 08:20 Pulse 88 12/08/23 08:20 Resp 16 12/08/23 08:20 BP 154/89 12/08/23 08:20 Pulse Ox 98 12/08/23 08:20 O2 Del Method Room Air 12/08/23 08:20 Weight last 48 hrs Weight 162 lb A&P Assessment and plan (1) Melena: (2) Family history of colon cancer: Plan EGD and colonoscopy Attestations Medical Necessity Statement*: Home Coding Level of Care Code Acute Code for Chg Fwd Diagnoses Melena K92.1 Family history of colon cancer Z80.0
[2023-12-08] MEDS: EPINEPHrine 1 mg/mL INJ XX (11:37)
[2023-12-08 11:59] VITALS: BP 122/62; PULSE 65; RESP 18; TEMP 36.3; O2SAT 97
[2023-12-08 12:11] VITALS: BP 138/69; PULSE 70; RESP 16; O2SAT 98
--- NOTE | 2023-12-08 12:40 | ANE.PACU2 ---
Inpatient post-anesthesia follow up: Airway intact: Yes Vital signs: Temperature 97.4 F Pulse Rate 70 Respiratory Rate 16 Blood Pressure 138/69 Pulse Oximetry 98 Oxygen Delivery Me thod Room Air Oxygen Flow Rate Fraction of Inspir ed Oxygen Hydration adequate: Yes Nausea and vomiting: No Pain level: 1 Mental status: Baseline
== END 2023-12-08 12:42 | disposition home or self-care (01) ==
PROVIDERS: PCP Nurse Practitioner Family; Visit Provider Surgery
PROC: 0DJ08ZZ Inspection of Upper Intestinal Tract, Via Natural or Artificial Opening Endoscopic (ICD-10-PCS; CPT 43235; principal; 2023-12-08 09:30)
PROC: 0DJD8ZZ Inspection of Lower Intestinal Tract, Via Natural or Artificial Opening Endoscopic (ICD-10-PCS; CPT 45378; 2023-12-08 09:30)
DX: K92.1 Melena (principal); Z80.0 Family history of malignant neoplasm of digestive organs; D12.2 Benign neoplasm of ascending colon; K29.70 Gastritis, unspecified, without bleeding; Z79.82 Long term (current) use of aspirin; I10 Essential (primary) hypertension; E78.5 Hyperlipidemia, unspecified; J44.9 Chronic obstructive pulmonary disease, unspecified; I25.10 Atherosclerotic heart disease of native coronary artery without angina pectoris; Z87.891 Personal history of nicotine dependence; I25.2 Old myocardial infarction; Z86.73 Personal history of transient ischemic attack (TIA), and cerebral infarction without residual deficits
CPT/HCPCS: 43239; 45385; 88305; J0171; J2704; J7030

== ENCOUNTER → 2023-12-31 10:00 | Outpatient (BNVA) | payer MEDICARE, SELFPAY | PROVIDERS: PCP Nurse Practitioner Family; Visit Provider Surgery | DX: K92.1 Melena (principal); I85.00 Esophageal varices without bleeding; R22.9 Localized swelling, mass and lump, unspecified; K42.9 Umbilical hernia without obstruction or gangrene; D37.4 Neoplasm of uncertain behavior of colon | CPT/HCPCS: 99214 ==

== ENCOUNTER 2024-01-11 07:46 | Day surgery (SDC) | payer MEDICARE, SELFPAY ==
[2024-01-11] VITALS (14 sets, daily range): BP systolic 105–154; BP diastolic 51–77; PULSE 60–102; RESP 14–18; TEMP 36.1–36.6; O2SAT 97–100
[2024-01-11] MEDS: sodium chloride 0.9% 1,000 ML 30 ML IV (08:31)
--- NOTE | 2024-01-11 09:36 | ANES.PREANE2 ---
Pre-Anesthetic Assessment Height/Weight: Height 5 ft 4 in Weight 165 lb Temp Pulse Resp BP Pulse Ox O2 Del Method 98 F 60 16 135/70 99 Room Air 01/11/24 08:06 01/11/24 08:06 01/11/24 08:06 01/11/24 08:06 01/11/24 08:06 01/11/24 08:06 Preop Diagnosis: Cholecystitis Operation Date: 01/11/24 09:35 Proposed Procedures p Excision of subcutaneous mass 22558y3, 68838, K42.9, R22.2(Not Applicable) - Barrington Henriquez DO s Laparoscopic Umbilical Hernia Repair with mesh(Not Applicable) - Barrington Henriquez DO Last intake: Intake Last Liquid Date 01/10/24 Last Liquid Time 22:00 Last Solid Date 01/09/24 Last Solid Time 17:00 Social Alcohol Drinks about a sixpack a day, quit smoking a few years ago Exam alert, oriented x 3, clear to auscultation bilaterally and regular rate & rhythm Airway Submandibular: within normal limits Cervical ROM: within normal limits Mallampati: Class II Dentition: other (Multiple missing teeth) Anesthetic Plan ASA status: 3 Anesthesia: General Other: Patient has no prior issues with anesthesia NPO since midnight History of hypertension, controlled on metoprolol CAD, stent placed years ago. Patient had a previous CVA, was on blood thinners but has since stopped Chronic alcohol use Stress test performed in November showing poor exercise capacity. Patient went into A-fib with RVR at that time. I spoke with Dr. Quigley this morning and he says patient is okay to proceed with surgery at this time. Heart rate this morning is 60 Plan for GETA Medications/Allergies Home Medications Medication Instructions Recorded Confirmed Last Taken Type albuterol sulfate 90 mcg/actuation 2 puff inhalation Q6H PRN 07/16/22 01/11/24 Unknown History aerosol inhaler shortness of breath cholecalciferol (vitamin D3) 50 50 mcg PO DAILY 07/16/22 01/11/24 01/10/24 History mcg (2,000 unit) capsule fluticasone propionate 50 1 spray intranasal DAILY PRN 07/16/22 01/11/24 01/10/24 History mcg/actuation nasal ALLERGIES spray,suspension (Allergy Relief (fluticasone)) olmesartan 20 mg tablet 20 mg PO DAILY 07/16/22 01/11/24 01/10/24 History omega 2-mjl-mgl-fish oil 1,200 mg 1 cap PO DAILY 07/16/22 01/11/24 01/10/24 History (144 mg-216 mg) capsule (Fish Oil) rosuvastatin 20 mg tablet 20 mg PO DAILY 07/16/22 01/11/24 01/10/24 History metoprolol succinate 25 mg 25 mg PO DAILY 09/22/23 01/11/24 01/10/24 History tablet,extended release 24 hr clopidogrel 75 mg tablet 75 mg PO DAILY #90 tabs 09/24/23 01/11/24 01/07/24 Rx aspirin 81 mg tablet,delayed 81 mg PO DAILY #30 tabs 10/05/23 01/11/24 01/10/24 Rx release ferrous sulfate 325 mg (65 mg 325 mg PO DAILY 10/05/23 01/11/24 01/10/24 History iron) tablet pantoprazole 40 mg tablet,delayed 40 mg PO BID 6 weeks #84 tabs 10/08/23 01/11/24 01/10/24 Rx release (Protonix) polyethylene glycol 3350 17 17 g PO DAILY #238 grams 12/31/23 01/11/24 Unknown Rx gram/dose oral powder (Miralax) Allergies Allergy/AdvReac Type Severity Reaction Status Date / Time No Known Allergies Allergy Verified 01/10/24 13:55 Current Medications Generic Name Dose Route Start Last Admin Trade Name Freq PRN Reason Stop Dose Admin Sodium Chloride 1,000 mls @ 30 mls/hr 01/11/24 08:00 01/11/24 08:31 Sodium Chloride 0.9% IV 01/12/24 07:59 30 mls/hr .Q24H YOCASTA Administration PFSH Anesthesia Medical History (Updated 12/31/23 @ 10:51 by Barrington Henriquez DO) Esophageal varices Family history of colon cancer HTN (hypertension) Hyperlipemia COPD (chronic obstructive pulmonary disease) CAD (coronary artery disease) Surgical History Hx of neck surgery History of transurethral resection of prostate H/O repair of rotator cuff Family History Unknown Stroke Social History Smoking and tobacco/nicotine status: former use of tobacco/nicotine Alcohol intake: current Alcohol intake frequency: 3 or more drinks per day Alcohol type: beer Data Anesthesia Cardiac Studies: Sestamibi Stress Test (Cardiology) 12/01/23 Cardiac Event Monitor 01/14/23
[2024-01-11] MEDS: ceFAZolin 2,000 mg SDV 2000 MG IVP (09:57)
[2024-01-11] MEDS: lidocaine-epi 2% PF 1:200,000 20 mL SDV XX (10:18)
[2024-01-11] MEDS: neomycin-poly-bacitracin oint 28 gm 1 APPLIC TOPICAL (10:44)
--- NOTE | 2024-01-11 11:41 | P.OP_ITS ---
Operative Report Date of procedure: January 11, 2024 Pre-op diagnosis: Subcutaneous mass of back x 2 Umbilical hernia Post-op diagnosis: Subfascial mass of back 11.5 cm Subcutaneous mass of back 7.5 cm Umbilical hernia Procedure done: Excision of subfascial mass of back 11.5 cm Excision of subcutaneous mass of back 7.5 cm Laparoscopic umbilical hernia repair with mesh Implants: 11 cm round Ventralight mesh Specimens removed/disposition: Subfascial mass of back Subcutaneous mass Hernia sac Surgeon: Barrington Henriquez DO Anesthesia: General and Local Estimated blood loss (mL): 5 Complications: None apparent Brief History: This is a very pleasant 73-year-old gentleman who had 2 enlarging and painful subcutaneous masses of his back that he desired excision of. He also had an umbilical hernia. Laparoscopic repair of umbilical hernia with mesh and excision of subcutaneous mass of back was indicated. The risks and benefits were explained and documented. Procedure: Patient was will not room placed on the OR table in supine position. General endotracheal intubation was achieved by the part of anesthesia. Patient was then placed into the right lateral decubitus position. The back was inspected prepped and draped in usual sterile fashion. A timeout was performed. All present were in agreement. After localizing with 2% lidocaine with epinephrine a 6 cm transverse incision was made over the lower back mass with a 10 blade scalpel. Bovie cautery was used to dissect down through the dermis and subcutaneous tissue. This mass was found to be subfascial. The fascia was opened sharply with Bovie cautery and cut mode. A lobulated yellow fatty mass was found closely associated with the latissimus dorsi muscle. Electrocautery was used to dissect through the alveolar tissue around the subcutaneous mass. The mass was dissected off of the latissimus dorsi muscle and removed. Mass measured 11.5 cm x 6.5 cm x 6.5 cm. Specimen was sent to pathology. Hemostasis was achieved with electrocautery. Dermis was approximated with 3-0 Vicryl suture in an interrupted fashion. Skin was closed with running 3-0 nylon suture in a simple running fashion. Attention was then brought to the superior subcutaneous mass of the back. 2% lidocaine with epinephrine was used to anesthetize the skin over this mass. An oblique incision, transverse to the muscle belly of the trapezius muscle, was performed with a 10 blade scalpel. Bovie cautery was used to dissect down through the dermis and subcutaneous tissue. A lobulated yellow fatty tumor was identified and easily extracted in the subcutaneous tissue intact. Hemostasis w as achieved electrocautery. Specimen measured 7.5 x 7.5 x 3 cm and was sent to pathology. Dermis approximated with 3-0 Vicryl suture in an interrupted fashion. Skin was closed with 3-0 nylon suture in a simple running fashion. Sterile bandages were applied. Patient was then placed into the supine position. Abdomen was inspected prepped and draped in usual sterile fashion. Time-out was performed and all present were in agreement. A 15 blade scalp was used to make a 5 millimeter incision left upper quadrant. A Veress needle was placed into the incision and intra-abdominal insufflation was brought to 15 millimeters of mercury. A 12 millimeter trocar was placed into the left lower quadrant. The energy but device was then used to cut out the hernia sac. An 11 cm Ventralight mesh was placed into the abdomen and brought up through the umbilicus using an the Reji-Pradip. The mesh was then tacked in place in a double crown fashion. The skeleton of the mesh was removed via the left lower quadrant. The hernia sac was then removed from the abdomen via the left lower quadrant. The left lower quadrant port site was closed with an 0 Vicryl suture in a Reji- Pradip in a [id number] fashion. Incisions were closed with 4 O Vicryl in a subcuticular interrupted fashion. Skin glue was applied. A dressing that included cotton balls and a Tegaderm was placed over the umbilicus. Patient tolerated the procedure well.
--- NOTE | 2024-01-11 12:17 | SUR.PHASEI ---
1200 Pt straight cathed per Dr Berg order. Using sterile technique and 18 albanian urinary catheter, obtained 1000cc's clear yellow urine. Pt tolerated well.
[2024-01-11] MEDS: HYDROcodone-acetaminophen 7.5-325 mg Tablet 1 TAB PO (13:07)
--- NOTE | 2024-01-11 13:30 | ANE.PACU2 ---
Inpatient post-anesthesia follow up: Airway intact: Yes Vital signs: Temperature 97 F Pulse Rate 97 Respiratory Rate 16 Blood Pressure 127/71 Pulse Oximetry 100 Oxygen Delivery Me thod Room Air Oxygen Flow Rate Fraction of Inspir ed Oxygen Hydration adequate: Yes Nausea and vomiting: No Pain level: 1 Mental status: Baseline
--- NOTE | 2024-01-11 15:30 | W.PM.OPSUD ---
Surgery/Procedure H&P Update DATE OF PROCEDURE: January 11, 2024 DATE H&P PERFORMED: 12/31/23 H&P UPDATE INFORMATION: I have reviewed H&P completed within last 30 days, I have examined patient prior to procedure and No changes to prior documentation PREOP DIAGNOSIS: Cholecystitis PLANNED PROCEDURE: Operation Date: 01/11/24 09:35 Proposed Procedures p Excision of subcutaneous mass [id number], 37976, K42.9, R22.2(Not Applicable) - DO maynor Blood Laparoscopic Umbilical Hernia Repair with mesh(Not Applicable) - Barrington Henriquez DO
== END 2024-01-11 13:30 | disposition home or self-care (01) ==
PROVIDERS: PCP Nurse Practitioner Family; Visit Provider Surgery
PROC: (CPT 11406; principal; 2024-01-11 09:35)
PROC: 0WQF4ZZ Repair Abdominal Wall, Percutaneous Endoscopic Approach (ICD-10-PCS; CPT 11406; 2024-01-11 09:35)
DX: D17.1 Benign lipomatous neoplasm of skin and subcutaneous tissue of trunk (principal); K42.9 Umbilical hernia without obstruction or gangrene; I10 Essential (primary) hypertension; I25.10 Atherosclerotic heart disease of native coronary artery without angina pectoris; Z95.5 Presence of coronary angioplasty implant and graft; Z86.73 Personal history of transient ischemic attack (TIA), and cerebral infarction without residual deficits; Z80.0 Family history of malignant neoplasm of digestive organs; E78.5 Hyperlipidemia, unspecified; J44.9 Chronic obstructive pulmonary disease, unspecified; Z87.891 Personal history of nicotine dependence
CPT/HCPCS: 11406 ×2; 12035; 49593; 88302; 88307; C1781; J0690; J1100; J2250; J2405; J2704; J3010; J3490; J7030

== ENCOUNTER → 2024-01-17 13:47 | Outpatient (BNVA) | payer MEDICARE, SELFPAY | PROVIDERS: PCP Nurse Practitioner Family; Visit Provider Internal Medicine | DX: I73.9 Peripheral vascular disease, unspecified (principal); I25.10 Atherosclerotic heart disease of native coronary artery without angina pectoris; I10 Essential (primary) hypertension; E78.5 Hyperlipidemia, unspecified; Z87.891 Personal history of nicotine dependence | CPT/HCPCS: 99214 ==

== ENCOUNTER → 2024-01-24 14:11 | Outpatient (BNVA) | payer MEDICARE, SELFPAY | PROVIDERS: PCP Nurse Practitioner Family; Visit Provider Surgery | DX: K92.1 Melena (principal); Z98.890 Other specified postprocedural states; Z87.19 Personal history of other diseases of the digestive system | CPT/HCPCS: 99214 ==

== ENCOUNTER 2024-05-17 11:12 | Inpatient (IN) | payer MEDICARE, SELFPAY ==
[2024-05-17] VITALS (11 sets, daily range): BP systolic 94–145; BP diastolic 52–80; PULSE 64–108; RESP 14–20; TEMP 36.3–36.6; O2SAT 97–99; BMI 27.0
--- NOTE | 2024-05-17 11:27 | USR_ITS ---
PROCEDURE INFORMATION: Exam: US Duplex Right Lower Extremity Arteries Or Arterial Bypass Grafts Exam date and time: 05/17/2024 11:59 AM Age: 73 years old Clinical indication: Pain; Leg, upper and leg, lower and foot; Right; Prior surgery; Surgery date: 6+ months; Surgery type: RT emergency specialist stent; Patient HX: Completely occluded before stent; Additional info: Leg pain TECHNIQUE: Imaging protocol: Right Real-time duplex scan of the arteries or arterial bypass grafts of the right lower extremity with 2-D de la cruz scale, color Doppler flow and spectral waveform analysis. Images documented and saved. COMPARISON: CT angio abd aorta runof [id number] 02/01/2023 3:38 PM FINDINGS: Right common femoral artery: Status post right common femoral artery stent. The stent is completely occluded. Right superficial femoral artery: The right proximal SFA is patent but demonstrates low flow and monophasic waveform. The right mid to distal SFA is occluded. Right popliteal artery: There is patency of the right popliteal artery which demonstrates low flow and monophasic waveform. Right calf/foot arteries: Right anterior tibial artery is not evaluated. Low-flow and monophasic waveforms seen in the right posterior tibial and right peroneal arteries. No flow is seen in the right dorsalis pedis. Soft tissues: No hematoma or [place]. US/[place] [id number] IMPRESSION: Occluded right common femoral artery stent. Low volume monophasic flow in patent proximal right SFA with occlusion of the mid to distal SFA. Low volume monophasic flow in right popliteal artery and right calf vessels. No demonstrated flow in the right dorsalis pedis.
--- NOTE | 2024-05-17 12:02 | ED_ITS ---
HPI - Extremity Problem 2 General: Chief complaint: Extremity Injury, Lower Stated complaint: right leg pain Time Seen by Provider: 05/17/24 11:40 Source: patient Mode of arrival: ambulatory History of Present Illness: 73-year-old male who states that he has had right leg pain and numbness is going on for the last week he has a history of peripheral artery disease he had stents placed states he is post take Plavix but has been out of it he states that he has had worsening pain in his right foot and it has been cold to touch. Associated symptoms: Deny chest pain, fever(s) or rash Related Data Home Medications Medication Instructions Recorded Confirmed albuterol sulfate 90 mcg/actuation 2 puff inhalation Q6H PRN 07/16/22 05/17/24 aerosol inhaler shortness of breath cholecalciferol (vitamin D3) 50 50 mcg PO DAILY 07/16/22 05/17/24 mcg (2,000 unit) capsule fluticasone propionate 50 1 spray intranasal DAILY PRN 07/16/22 05/17/24 mcg/actuation nasal ALLERGIES spray,suspension (Allergy Relief (fluticasone)) olmesartan 20 mg tablet 20 mg PO QAM 07/16/22 05/17/24 omega 7-pzu-hgv-fish oil 1,200 mg 1 cap PO DAILY 07/16/22 05/17/24 (144 mg-216 mg) capsule (Fish Oil) rosuvastatin 20 mg tablet 20 mg PO QPM 07/16/22 05/17/24 ferrous sulfate 325 mg (65 mg 325 mg PO DAILY 10/05/23 05/17/24 iron) tablet aspirin 81 mg tablet,delayed 81 mg PO QAM 05/17/24 05/17/24 release Previous Rx's Medication Instructions Recorded metoprolol succinate 25 mg See Rx Instructions .Route 04/18/24 tablet,extended release 24 hr .COMPLEX #270 tabs clopidogrel 75 mg tablet 75 mg PO DAILY #90 tabs 05/16/24 Allergies Allergy/AdvReac Type Severity Reaction Status Date / Time No Known Allergies Allergy Verified 01/17/24 14:12 Review of Systems 2 Const: Denies: fever(s), chills, body aches or change in appetite ENMT: Denies: throat pain or dental pain Card: Denies: chest pain Resp: Denies: dyspnea GI: Denies: abdominal pain, nausea, vomiting or diarrhea Musc: Reports: extremity pain; Denies: neck pain or back pain Skin/Breast: Denies: rash Neuro: Denies: headache(s) PFSH ED 2 PFSH: Medical History Esophageal varices Family history of colon cancer HTN (hypertension) Hyperlipemia COPD (chronic obstructive pulmonary disease) CAD (coronary artery disease) Surgical History Hx of colonoscopy [place] 1st -positive polyp 2nd - positive polyp ''but lost sample'' History of hernia surgery 01/11/24 Laparoscopic umbilical hernia repair with mesh- Dr Henriquez Hx of excision of mass 01/11/24 Excision of subfascial mass of back 11.5 cm Excision of subcutaneous mass of back 7.5 cm- Dr Henriquez Hx of neck surgery History of transurethral resection of prostate H/O repair of rotator cuff Family History Unknown Stroke Social History Smoking and tobacco/nicotine status: former use of tobacco/nicotine Alcohol intake: current Alcohol intake frequency: 3 or more drinks per day Alcohol type: beer Physical Exam 2 Const: COMMON NORMALS: no acute distress, patient oriented x3 and healthy appearing HENMT: COMMON NORMALS: normocephalic and atraumatic HEAD & SCALP: n ormocephalic and atraumatic Neck/C-Spine: COMMON NORMALS: full ROM and supple Chest: COMMONS NORMALS: normal inspection of the chest Resp: COMMON NORMALS: normal respiratory effort Cardio: COMMON NORMALS: regular rate, regular rhythm and No murmurs present (Cardio) RATE: regular rate RHYTHM: regular rhythm Extremity: COMMON NORMALS: full ROM NARRATIVE EXTREMITY EXAM: Right foot is cold to touch Neuro: COMMON NORMALS: patient oriented x3, moves all extremities and no focal motor deficits Psych: COMMON NORMALS: mental status grossly normal, Normal thought process present and cooperative THOUGHT PROCESS: Normal thought process present Skin: COMMON NORMALS: no rashes or lesions noted and no wounds GENERAL SKIN EXAM: no rashes or lesions noted Course 2 Vital Signs: Vital signs: Vital Signs Temperature 97.4 F L 05/17/24 11:16 Pulse Rate 108 H 05/17/24 11:16 Respiratory Rate 16 05/17/24 11:16 Blood Pressure 145/76 05/17/24 11:16 Pulse Oximetry 99 05/17/24 11:16 Oxygen Delivery Me thod Room Air 05/17/24 11:16 MDM - Extremity (Nontraumatic) Medical Decision Making Patient presents here with ischemic limb to right leg I spoke to cost accounting manager along with hospitalist started heparin drip will admit at this time. Medical Records I reviewed the patient's medical records. Lab Data I reviewed the patient's lab results. 05/17/24 12:20 05/17/24 12:20 Radiology Impressions Duplex Scan Lower Extremity Artery 05/17/24 11:27 IMPRESSION: Occluded right common femoral artery stent. Low volume monophasic flow in patent proximal right SFA with occlusion of the mid to distal SFA. Low volume monophasic flow in right popliteal artery and right calf vessels. No demonstrated flow in the right dorsalis pedis. Laboratory Results WBC 6.29 10^3/uL (3.29-11.43) 05/17/24 12:20 RBC 4.28 10^6/uL (3.85-5.65) 05/17/24 12:20 Hgb 14.70 g/dL (11.27-16.99) 05/17/24 12:20 Hct 42.8 % (37-53) 05/17/24 12:20 MCV 100.0 fl (82-101) 05/17/24 12:20 MCH 34.3 pg (27-33) H 05/17/24 12:20 MCHC 34.3 g/dL (30-55) 05/17/24 12:20 RDW 12.3 % (12.1-15.1) 05/17/24 12:20 Plt Count 214 10^3/cmm (157-399) 05/17/24 12:20 MPV 10.1 fL (7.4-10.4) 05/17/24 12:20 Neut % (Auto) 68.2 % 05/17/24 12:20 Lymph % (Auto) 15.6 % 05/17/24 12:20 Eagle % (Auto) 11.1 % 05/17/24 12:20 Eos % (Auto) 3.5 % 05/17/24 12:20 Baso % (Auto) 1.0 % 05/17/24 12:20 Neut # (Auto) 4.29 10^3/uL (1.8-7.7) 05/17/24 12:20 Lymph # (Auto) 1.0 10^3/uL (0.8-4.8) 05/17/24 12:20 Eagle # (Auto) 0.7 10^3/uL (0.2-0.9) 05/17/24 12:20 Eos # (Auto) 0.2 10^3/uL (0.0-0.8) 05/17/24 12:20 Baso # (Auto) 0.1 10^3/uL (0.0-0.1) 05/17/24 12:20 Nucleated RBC % (auto) 0 % 05/17/24 12:20 Nucleated RBCs # 0.0 /100WBC 05/17/24 12:20 PT 12.60 SECONDS (12.1-14.9) 05/17/24 12:20 INR 0.88 (0.8-1.2) 05/17/24 12:20 Sodium 142 mmol/L (136-145) 05/17/24 12:20 Potassium 3.8 mmol/L (3.5-5.1) 05/17/24 12:20 Chloride 105 mmol/L (98-107) 05/17/24 12:20 Carbon Dioxide 25 mmol/L (22-29) 05/17/24 12:20 Anion Gap 15.8 (5-19) 05/17/24 12:20 BUN 9 mg/dL (8-23) 05/17/24 12:20 Creatinine 0.7 mg/dL (0.7-1.2) 05/17/24 12:20 GFR Calculation Not Reportable 05/17/24 12:20 Glucose 85 mg/dL (65-115) 05/17/24 12:20 Calculated Osmolality 292 mOsm/kg (285-295) 05/17/24 12:20 Calcium 10.0 mg/dL (8.5-10.5) 05/17/24 12:20 Total Bilirubin 0.6 mg/dL (0.15-1.2) 05/17/24 12:20 AST 17 U/L (0-40) 05/17/24 12:20 ALT 19 U/L (0-41) 05/17/24 12:20 Alkaline Phosphatase 90 U/L (40-130) 05/17/24 12:20 Total Protein 7.0 g/dL (6.6-8.7) 05/17/24 12:20 Albumin 4.3 g/dL (3.5-5.2) 05/17/24 12:20 Globulin 2.7 g/dL (1.3-4.6) 05/17/24 12:20 All radiology interpretation(s) finalized by discharge Critical Care Time 2 Critical Care Time: Critical Care Time: Yes Total Critical Care Time: 40 Attestation: The high probability of a clinically significant, sudden or life threatening deterioration of the patient's vasc system(s) required my full and direct attention, intervention and personal management. The critical care time is as shown. This time is in addition to time spent performing any reported procedures but includes the following: [x] Data and vital sign review and interpretation [x] Patient assessment, examination and intervention [x] Documentation [x] Medication orders and management Discharge Plan Discharge Patient Disposition: Admitted As Inpatient Clinical Impression: Ischemic leg Condition: Stable Prescriptions: No Action fluticasone propionate [Allergy Relief (fluticasone)] 50 mcg/actuation spray,suspension 1 spray intranasal DAILY PRN (Reason: ALLERGIES) Rx Instructions: administer into each nostril rosuvastatin 20 mg tablet 20 mg PO QPM olmesartan 20 mg tablet 20 mg PO QAM albuterol sulfate 90 mcg/actuation HFA aerosol inhaler 2 puff inhalation Q6H PRN (Reason: shortness of breath) cholecalciferol (vitamin D3) 50 mcg (2,000 unit) capsule 50 mcg PO DAILY omega 0-zet-wvn-fish oil [Fish Oil] 1,200 (144-216) mg capsule 1 cap PO DAILY metoprolol succinate 25 mg tablet extended release 24 hr See Rx Instructions .ROUTE .COMPLEX Qty: 270 3RF Dose Instruction: TAKE TWO TABLETS BY MOUTH EVERY MORNING and TAKE ONE TABLET BY MOUTH EVERY EVENING Rx Instructions: TAKE TWO TABLETS BY MOUTH EVERY MORNING and TAKE ONE TABLET BY MOUTH EVERY EVENING. clopidogrel 75 mg tablet 75 mg PO DAILY Qty: 90 3RF Hold Instructions: Resume on 01/13/24. ferrous sulfate 325 mg (65 mg iron) Tablet 325 mg PO DAILY aspirin 81 mg tablet,delayed release (DR/EC) 81 mg PO QAM Referrals: Nayana Chavez APN [Primary Care Provider] - Discharge Diet: Advance as tolerated Discharge Activity: Resume usual activity Coding Level of Care Code ED Gravity Meter Observer for Grace Solano
[2024-05-17 12:47] LABS: Basophils # 0.1 10^3/uL (0.0-0.1); Eosinophils # 0.2 10^3/uL (0.0-0.8); Eosinophils % 3.5 %; Hematocrit 42.8 % (37-53); Lymphocytes % 15.6 %; Mean Corpuscular HGB Conc 34.3 g/dL (30-55); Mean Corpuscular Hemoglobin 34.3 pg (27-33); Mean Platelet Volume 10.1 fL (7.4-10.4); Monocytes # 0.7 10^3/uL (0.2-0.9); Monocytes % 11.1 %; Neutrophils # 4.29 10^3/uL (1.8-7.7); Neutrophils % 68.2 %; Nucleated Red Blood Cells % 0 %; Platelet Count 214 10^3/cmm (157-399); Red Blood Count 4.28 10^6/uL (3.85-5.65); Red Cell Distribution Width 12.3 % (12.1-15.1); White Blood Count 6.29 10^3/uL (3.29-11.43)
--- NOTE | 2024-05-17 12:51 | CTR_ITS ---
PROCEDURE INFORMATION: Exam: CTA Abdominal Aorta and Bilateral Lower Extremities (Run-off) With Contrast Exam date and time: 05/17/2024 1:32 PM Age: 73 years old Clinical indication: Pain; Other: RT medial femoral; Prior surgery; Surgery date: 6+ months; Surgery type: Bilateral femoral stents; Additional info: Leg ischemia TECHNIQUE: Imaging protocol: Computed tomographic angiography of the of the abdominal aorta, pelvis and bilateral lower extremities with contrast. 3D rendering (Not supervised by radiologist): MIP and/or 3D reconstructed images were created by the technologist. Radiation optimization: All CT scans at this facility use at least one of these dose optimization techniques: automated exposure control; mA and/or kV adjustment per patient size (includes targeted exams where dose is matched to clinical indication); or iterative reconstruction. Contrast material: OMNI 350; Contrast volume: 100 ml; Contrast route: INTRAVENOUS (IV); COMPARISON: CT angio abd aorta runof 18647 02/01/2023 3:38 PM RADIATION DOSE METRICS: Total DLP (mGy-cm): 887.52 FINDINGS: Aorta: No abdominal aortic aneurysm. No evidence of abdominal aortic aneurysm. Celiac trunk and mesenteric arteries: No significant stenosis of the SMA or celiac artery. COLLETTE is widely patent. Renal arteries: No significant stenosis of the renal arteries. Right iliac arteries: Atherosclerotic changes of the right iliac arterial system without significant stenosis. Right femoral/popliteal arteries: Right common femoral artery stent with a occlusion. The right profunda is reconstituted just distal to its origin. There is a occlusion of the proximal right SFA graft throughout its course. The SFA distal to the graft is also occluded. Another graft is seen more distally. There is a reconstitution of the popliteal artery just distal to the graft in its proximal portion. There is moderate narrowing of the right popliteal artery . Right infrapopliteal arteries: Multilevel stenoses of the right anterior tibial artery are present. There is a small amount of flow visualized to the level of the ankle. There are multilevel stenoses of the right peroneal artery generalized decreased flow although there is some flow seen to the level of the distal leg. The right posterior tibial artery is occluded in its proximal portion. There are some areas of reconstitution of flow within the artery but no distal runoff is seen. Left iliac arteries: Left common and external iliac stent grafts are present. There are multilevel areas of mild stenosis of the left external iliac artery. Left femoral/popliteal arteries: There is moderate stenosis of the left common femoral artery. There is moderate stenosis of the proximal left SFA. Multilevel mild stenoses are present in the mid left SFA. There is a high-grade stenosis of the distal left SFA on series 4, image 592. Mild stenosis of the left popliteal artery. Left infrapopliteal arteries: Multilevel [id number]-[id number] stenoses all 3 left calf vessels noted with three-vessel runoff seen to the ankle and foot. Lungs: Mild basilar scar versus atelectasis. Liver: Stable hepatic hypodensities and focal of nodular arterial enhancement (left lobe series 4, image 45 4 mm ). Gallbladder and biliary ducts: No significant gallbladder pathology. No biliary dilatation. Pancreas: Stable 1.8 cm enhancing structure contiguous with the pancreatic tail on series 4, image 100 most likely representing accessory splenic tissue. Spleen: Spleen is normal in size. Adrenal glands: No significant adrenal pathology. Kidneys and ureters: There are renal cortical cysts and subcentimeter cortical hypodensities which are indeterminate by criteria but statistically most likely represent cysts. Interval appearance of a new area of altered enhancement of the cortex of the left kidney on series 4, image 126 measuring up to 2 cm in greatest dimension with a higher attenuation area posteriorly. Stomach and bowel: Colonic diverticulosis without evidence of focal inflammatory change. Moderate amount of colonic stool. Appendix: No evidence of appendicitis. Urinary bladder: Abnormal appearance of the urinary bladder with features including wall thickening, greater anteriorly and distension. Reproductive: Moderate prostatomegaly. Intraperitoneal space: No ascites. Lymph nodes: Borderline bilateral inguinal adenopathy noted without change. No evidence of lymphadenopathy. Bones/joints: Mild degenerative change present in the spine. Mild degenerative change seen in both knee joints. Mild degenerative change bilateral hip joints. Soft tissues: Unremarkable. CT/CT angio abd aorta runof 37500 IMPRESSION: 1. Occluded right common femoral artery and SFA stent and graft. Reconstitution of the right popliteal artery just distal to the graft with moderate narrowing throughout the right popliteal artery. Multilevel stenoses of the right calf vessels with occlusion of the right posterior tibial artery and decreased flow in patent distal right peroneal and anterior tibial arteries. 2. High-grade stenosis of the distal left SFA. Three-vessel runoff on the left. 3. Multiple minor findings described above.
[2024-05-17 13:09] LABS: Alanine Aminotransferase 19 U/L (0-41); Albumin Level 4.3 g/dL (3.5-5.2); Alkaline Phosphatase 90 U/L (40-130); Anion Gap 15.8 (5-19); Aspartate Amino Transferase 17 U/L (0-40); Blood Urea Nitrogen 9 mg/dL (8-23); Carbon Dioxide 25 mmol/L (22-29); Chloride 105 mmol/L (98-107); Creatinine Clr Calc Pharmacy 76.2049; Globulin 2.7 g/dL (1.3-4.6); Glucose 85 mg/dL (65-115); INR 0.88 (0.8-1.2); Osmolality Calculated 292 mOsm/kg (285-295); Potassium 3.8 mmol/L (3.5-5.1); Sodium 142 mmol/L (136-145); Total Bilirubin 0.6 mg/dL (0.15-1.2)
[2024-05-17] MEDS: heparin 5,000 unit/mL INJ 1 mL IVP (14:03)
[2024-05-17] MEDS: heparin drip 25,000 UNIT/500 ML PREMIX 21 UNIT IV (14:07)
--- NOTE | 2024-05-17 14:47 | P.HP_ITS ---
Providers/Chief Complaint 2 Primary Care Provider: Nayana Chavez APN Chief Complaint: right leg pain History of Present Illness Juan Fulton is a 73 year old male with a past medical history of smoking, hypertension, hyperlipidemia, history of peripheral vascular disease, requiring intervention and stenting in the past, who presents [facility] due to pain in his right lower extremity for the last 4 days. Patient tells me that he has been out of Plavix for the last week or so, but is using aspirin, statin, he says that for the last 4 days he had pain in his right lower extremity, he tells me the right lower extremity started to look blue, with discoloration, severe pain he is not able to walk due to severe pain, due to severe persistent pain, poikilothermia he present to the emergency room, no chest pain, no palpitations, no headache, blurry vision, no strokelike symptoms Review of Systems 2 Const: Reports: malaise; Denies: fever(s) or fatigue Card: Denies: chest pain Resp: Denies: dyspnea GI: Denies: abdominal pain Medications/Allergies Home Medications Medication Instructions Recorded Confirmed Last Taken Type albuterol sulfate 90 mcg/actuation 2 puff inhalation Q6H PRN 07/16/22 05/17/24 Unknown History aerosol inhaler shortness of breath cholecalciferol (vitamin D3) 50 50 mcg PO DAILY 07/16/22 05/17/24 05/16/24 History mcg (2,000 unit) capsule fluticasone propionate 50 1 spray intranasal DAILY PRN 07/16/22 05/17/24 01/10/24 History mcg/actuation nasal ALLERGIES spray,suspension (Allergy Relief (fluticasone)) olmesartan 20 mg tablet 20 mg PO QAM 07/16/22 05/17/24 05/17/24 History omega 3-jdn-ene-fish oil 1,200 mg 1 cap PO DAILY 07/16/22 05/17/24 05/17/24 History (144 mg-216 mg) capsule (Fish Oil) rosuvastatin 20 mg tablet 20 mg PO QPM 07/16/22 05/17/24 05/16/24 History ferrous sulfate 325 mg (65 mg 325 mg PO DAILY 10/05/23 05/17/24 05/17/24 History iron) tablet metoprolol succinate 25 mg See Rx Instructions .Route 04/18/24 05/17/24 05/17/24 Rx tablet,extended release 24 hr .COMPLEX #270 tabs clopidogrel 75 mg tablet 75 mg PO DAILY #90 tabs 05/16/24 05/17/24 05/17/24 Rx aspirin 81 mg tablet,delayed 81 mg PO QAM 05/17/24 05/17/24 05/17/24 History release Allergies Allergy/AdvReac Type Severity Reaction Status Date / Time No Known Allergies Allergy Verified 01/17/24 14:12 PFSH Acute 2 PFSH: Medical History Esophageal varices Family history of colon cancer HTN (hypertension) Hyperlipemia COPD (chronic obstructive pulmonary disease) CAD (coronary artery disease) Surgical History Hx of colonoscopy [place] 1st -positive polyp 2nd - positive polyp ''but lost sample'' History of hernia surgery 01/11/24 Laparoscopic umbilical hernia repair with mesh- Dr Henriquez Hx of excision of mass 01/11/24 Excision of subfascial mass of back 11.5 cm Excision of subcutaneous mass of back 7.5 cm- Dr Henriquez Hx of neck surgery History of transurethral resection of prostate H/O repair of rotator cuff Family History Unknown Stroke Social History Smoking and tobacco/nicotine status: former use of tobacco/nicotine Alcohol intake: current Alcohol intake frequency: 3 or more drinks per day Alcohol type: beer Vitals/I&O/Wt Last Vital Signs Temp 97.4 F L 05/17/24 11:16 Pulse 108 H 05/17/24 11:16 Resp 16 05/17/24 11:16 BP 145/76 05/17/24 11:16 Pulse Ox 99 05/17/24 11:16 O2 Del Method Room Air 05/17/24 11:16 Weight last 48 hrs Weight 72.575 kg Physical Exam 2 Const: COMMON NORMALS: no acute distress and patient oriented x3 Eye: COMMON NORMALS: Equal, round and reactive pupils present and EOMs intact bilaterally Resp: COMMON NORMALS: normal respiratory effort, No retractions, No use of accessory muscles and clear to auscultation bilaterally AUSCULTATION: clear to auscultation bilaterally Cardio: COMMON NORMALS: no JVD, regular rate, regular rhythm, S1 normal heart sound present and S2 normal heart sound present RATE: regular rate RHYTHM: regular rhythm HEART SOUNDS: S1 normal heart sound present and S2 normal heart sound present GI: COMMON NORMALS: Normal to inspection, nondistended, normoactive bowel sounds present, Soft to palpation and non-tender Extremity: OTHER: RLE cool, no dp/pt pulses, poiklotherma, pain Neuro: COMMON NORMALS: patient oriented x3, CN's II-XII intact bilaterally and moves all extremities Psych: COMMON NORMALS: mental status grossly normal Data 05/17/24 12:20 05/17/24 12:20 A&P Assessment and plan (1) Acute lower limb ischemia: Plan Acute limb ischemia -History of peripheral vascular disease -History of peripheral angiogram 09/23/2023 Conclusions There is severe right lower extremity disease. S/p successful revascularization of her right SFA with balloon angioplasty and stents x 3. Right Distal Superficial Femoral Artery was treated with balloon and stentsx 2. Right proximal SFA was treated with 1 stent. -Patient was out of refills for Plavix for the last week -Right lower extremity, no DP PT pulses palpable, cool, complaints of pain, Right lower extremity arterial [place] US/[place] [id number] IMPRESSION: Occluded right common femoral artery stent. Low volume monophasic flow in patent proximal right SFA with occlusion of the mid to distal SFA. Low volume monophasic flow in right popliteal artery and right calf vessels. No demonstrated flow in the right dorsalis pedis. Plan -CTA aorta runoff pending -Keep n.p.o. -Aspirin, statin, Plavix -Heparin drip -Keep right lower extremity warm, monitor pulses -Cardiology consulted for peripheral angiogram and intervention -Full code -Heparin drip for DVT prophylaxis Attestations 2 Medical Necessity Statement*: patient requires hospitalization for acute limb ischemia, inpatient, greater than 2 midnights Coding Level of Care Code Critical Care >/= 30 minutes Critical care time (in minutes): 45 The high probability of a clinically significant, sudden or life threatening deterioration, as referenced in this documentation, required my full and direct attention, intervention and personal management. The critical care time shown is in addition to time spent performing any reported separately billable procedures and includes the following: [x] Data and vital sign review and interpretation [x ] Patient assessment, examination and intervention [x] Medication orders and management [x] Patient/Family updates as able [x] Care Coordination and Documentation. Diagnoses Acute lower limb ischemia I99.8
[2024-05-17 15:26] LABS: NT Pro B Type Natriuretic Pept 277 pg/mL (0-125); Procalcitonin 0.04 ng/mL (0-0.5)
--- NOTE | 2024-05-17 15:33 | P.CONIM_ITS ---
<Statement entered by Jovon Quigley M.D - 05/17/24 22:52> Patient was evaluated and cared for in conjunction with an advanced practice practitioner. I personally examined the patient and reviewed the chart and all pertinent data including imaging, telemetry, and laboratory results. I discussed the patient in detail with the advanced practice practitioner. Please see their note for complete consult note, results and agreed upon plan of care for the patient. Patient has history of significant peripheral artery disease. He has presented with right lower extremity pain and tingling for last 1-2 weeks. Symptoms started when he ran out of plavix. Patient has stent in the SFA which appears to be occluded on CTA. Reduced flow below the knee. Currently has minimal pain in the leg. Intact movement. Has tingling in the leg. GENERAL: Patient is alert and oriented HEART: Regular S1 and S2 LUNGS: Clear to auscultations. EXTREMITIES: Lower extremities with no edema. Right foot is colder than left. Pulses are not palpable. 1) Critical limb ischemia 2) Atrial fibrillation Patient has presented with critical limb ischemia. We will start anticoagulation with heparin. NPO past midnight. Plan for peripheral angiogram with possible intervention Restart plavix. Add aspirin. 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 We will continue to follow. Please call with questions. Providers/Reason For Consult 2 Consulting Physician/Specialty*: Dr Quigley, cardiology Reason for Consult*: Critical limb ischemia Requesting Physician: Dr May Attending Physician: Dr Dumont Primary Care Provider: Nayana Chavez APN History of Present Illness History of Present Illness Juan Fulton is a 73 year old male with past medical history of PAD stenting of the right SFA, atrial fibrillation, esophageal varices, hypertension, hyperlipidemia, COPD, CAD, history of umbilical hernia repair with mesh in December by Dr. Henriquez. He was taken off Eliquis about 9 months ago due to some bloody stools, EGD and colonoscopy in November 2023 did not show any active bleeding (he did have multiple polyps and diverticula in the colon, multiple internal hemorrhoids, small upper esophageal varices not actively bleeding). He ran out of Plavix 2 weeks ago and had been taking baby aspirin only in that time. For the last 7 days he noted symptoms of worsening claudication, his toes became purple 2 days ago, last night he had difficulty with movement of the foot and toes but has regained that today. The right foot does feel somewhat numb. He presented to the emergency room today with a cold foot on the right, found to have critical limb ischemia. CTA of aorta with runoff showed occluded right common femoral artery and SFA stent and graft reconstitution of the right popliteal artery just distal to the graft narrowing throughout the right popliteal artery. Multilevel stenosis of the right-occlusion of the right posterior tibial distal right peroneal and anterior tibial arteries patent but with decreased flow. High-grade stenosis of the distal left SFA three-vessel runoff on the left. He still has sensation of the right foot as well as movement of the toes, it is cool to touch and dusky. Review of Systems 2 Const: Denies: fever(s), chills, change in weight, fatigue or diaphoresis Eyes: Denies: change in vision ENMT: Denies: epistaxis Card: Denies: chest pain, palpitations, irregular heart rhythm, edema, syncope, pre-syncope, dyspnea on exertion, orthopnea or leg pain with exertion Resp: Denies: dyspnea, productive cough or wheezing GI: Denies: nausea, vomiting, hematemesis, hematochezia or melena : Denies: hematuria Musc: Denies: extremity swelling Brayan/Lymph: Denies: easy bruising or easy bleeding Medications/Allergies Home Medications Medication Instructions Recorded Confirmed Last Taken Type albuterol sulfate 90 mcg/actuation 2 puff inhalation Q6H PRN 07/16/22 05/17/24 Unknown History aerosol inhaler shortness of breath cholecalciferol (vitamin D3) 50 50 mcg PO DAILY 07/16/22 05/17/24 05/16/24 History mcg (2,000 unit) capsule fluticasone propionate 50 1 spray intranasal DAILY PRN 07/16/22 05/17/24 01/10/24 History mcg/actuation nasal ALLERGIES spray,suspension (Allergy Relief (fluticasone)) olmesartan 20 mg tablet 20 mg PO QAM 07/16/22 05/17/24 05/17/24 History omega 9-dmy-tsc-fish oil 1,200 mg 1 cap PO DAILY 07/16/22 05/17/24 05/17/24 History (144 mg-216 mg) capsule (Fish Oil) rosuvastatin 20 mg tablet 20 mg PO QPM 07/16/22 05/17/24 05/16/24 History ferrous sulfate 325 mg (65 mg 325 mg PO DAILY 10/05/23 05/17/24 05/17/24 History iron) tablet metoprolol succinate 25 mg See Rx Instructions .Route 04/18/24 05/17/24 05/17/24 Rx tablet,extended release 24 hr .COMPLEX #270 tabs clopidogrel 75 mg tablet 75 mg PO DAILY #90 tabs 05/16/24 05/17/24 05/17/24 Rx aspirin 81 mg tablet,delayed 81 mg PO QAM 05/17/24 05/17/24 05/17/24 History release Allergies Allergy/AdvReac Type Severity Reaction Status Date / Time No Known Allergies Allergy Verified 01/17/24 14:12 Current Medications Generic Name Dose Route Start Last Admin Trade Name Freq PRN Reason Stop Dose Admin Heparin Sodium/Sodium Chloride 25,000 unit in 500 mls @ 0 mls/hr 05/17/24 13:00 05/17/24 14:07 Heparin Drip IV 14.47 unit/kg/hr CONT YOCASTA 21 mls/hr Administration Protocol Per Protocol PFSH Acute 2 PFSH: Medical History Esophageal varices Family history of colon cancer HTN (hypertension) Hyperlipemia COPD (chronic obstructive pulmonary disease) CAD (coronary artery disease) Surgical History Hx of colonoscopy [place] 1st -positive polyp 2nd - positive polyp ''but lost sample'' History of hernia surgery 01/11/24 Laparoscopic umbilical hernia repair with mesh- Dr Henriquez Hx of excision of mass 01/11/24 Excision of subfascial mass of back 11.5 cm Excision of subcutaneous mass of back 7.5 cm- Dr Henriquez Hx of neck surgery History of transurethral resection of prostate H/O repair of rotator cuff Family History Unknown Stroke Social History Smoking and tobacco/nicotine status: former use of tobacco/nicotine Alcohol intake: current Alcohol intake frequency: 3 or more drinks per day Alcohol type: beer Vitals/I&O/Wt Last Vital Signs Temp 97.4 F L 05/17/24 11:16 Pulse 108 H 05/17/24 11:16 Resp 16 05/17/24 11:16 BP 145/76 05/17/24 11:16 Pulse Ox 99 05/17/24 11:16 O2 Del Method Room Air 05/17/24 11:16 Weight last 48 hrs Weight 160 lb Physical Exam 2 Const: COMMON NORMALS: no acute distress and patient oriented x3 GENERAL APPEARANCE: cooperative and comfortable ORIENTATION/CONSCIOUSNESS: Yes awake, Yes oriented to person, Yes oriented to place and Yes oriented to time Chest: COMMONS NORMALS: normal inspection of the chest and normal palpation of entire chest wall CHEST: Yes Symmetrical chest wall rise Resp: COMMON NORMALS: normal respiratory effort, No retractions, No use of accessory muscles and clear to auscultation bilaterally EFFORT & INSPECTION: Yes symmetric chest movement AUSCULTATION: clear to auscultation bilaterally Cardio: COMMON NORMALS: regular rate, regular rhythm, S1 normal heart sound present, S2 normal heart sound present, No gallops present (Cardio), No clicks present (Cardio), No murmurs present (Cardio) and No rub (Cardio) RATE: r egular rate RHYTHM: regular rhythm HEART SOUNDS: S1 normal heart sound present and S2 normal heart sound present PERIPHERAL PULSES: radial pulses present, posterior tibial pulses not present and dorsalis pedis pulses not present Extremity: COMMON NORMALS: no pedal edema Neuro: COMMON NORMALS: patient oriented x3 and moves all extremities S ENSORIUM/ORIENTATION: Yes oriented to person, Yes oriented to place and Yes oriented to time Data 05/17/24 12:20 05/17/24 12:20 A&P Assessment and plan (1) Critical limb ischemia of right lower extremity: Patient has critical limb ischemia, CTA revealing occlusion of the right common femoral and SFA previously placed stent, reconstitution of right popliteal artery distally, moderate narrowing throughout the right popliteal, occlusion of right posterior tibial, patent right peroneal and anterior tibial with decreased flow. There is also high-grade stenosis of the distal left SFA however three- vessel runoff on the left. He does not have any symptoms of claudication or sensation change in the left leg. He has no resting leg pain currently. Plan is to keep him on heparin drip overnight and perform peripheral angiogram tomorrow morning. Will be n.p.o. after midnight tonight. (2) CAD (coronary artery disease): Qualifiers: Associated angina: without angina Coronary Disease-Associated Artery/Lesion type: [place] artery [place] vs. transplanted heart: [place] heart Qualified Code(s): I25.10 - Atherosclerotic heart disease of [place] coronary artery without angina pectoris (3) Atrial fibrillation: He appears to be in sinus rhythm currently. We can address the question of need for anticoagulation after his procedure. (4) Peripheral artery disease: (5) Hyperlipemia: (6) HTN (hypertension): Coding Level of Care Code Acute Code for [facility] Diagnoses Critical limb ischemia of right lower extremity I70.221 Coronary artery disease involving [place] coronary artery of [place] heart without angina pectoris I25.10 Associated angina: without angina Coronary Disease-Associated Artery/Lesion type: [place] artery [place] vs. transplanted heart: [place] heart Atrial fibrillation I48.91 Peripheral artery disease I73.9 Hyperlipemia E78.5 HTN (hypertension) I10
--- NOTE | 2024-05-17 15:59 | PC.NURSE ---
pt requesting water, Dr. Yadira silva.
[2024-05-17] MEDS: pantoprazole 40 mg SDV IVP (18:02)
[2024-05-17] MEDS: sodium chloride 0.9% 1,000 ML 75 ML IV (18:02)
[2024-05-17] MEDS: aspirin 81 mg EC Tablet PO (18:03)
[2024-05-17] MEDS: metoprolol succinate ER (24 HR) 25 mg Tablet PO (18:03)
[2024-05-17] MEDS: atorvastatin 40 mg Tablet 80 MG PO (18:03)
[2024-05-17 21:15] LABS: Chol HDL Ratio 1.73 mg/dL (1.0-5.00); Cholesterol 104 mg/dL (0-200); HDL Cholesterol 60 mg/dL (60-100); Thyroid Stimulating Hormone 5.53 uIU/mL (0.27-4.20)
[2024-05-17 21:21] LABS: LDL Cholesterol Calculated 32 mg/dL (50-129); LDL HDL Ratio 0.53 RATIO (0.00-3.22); Triglycerides 58 mg/dL (0-150)
[2024-05-17 21:26] LABS: Estmated Average Glucose 111; Hemoglobin A1C 5.5 % (4.0-6.0)
[2024-05-17 21:39] LABS: Partial Thromboplastin Time 88.1 SECONDS (23.9-36.7)
[2024-05-17] MEDS: morphine 4 mg/mL SDV 1 mL 2 MG IVP (23:45)
[2024-05-18] VITALS (28 sets, daily range): BP systolic 110–164; BP diastolic 52–94; PULSE 55–86; RESP 11–25; TEMP 36.6–36.8; O2SAT 71–99
[2024-05-18] MEDS: acetaminophen 325 mg Tablet 650 MG PO (02:39)
[2024-05-18 03:00] LABS: Bilirubin Urine Negative (Negative); Blood Urine Negative (Negative); Glucose Urine UA Negative (Normal); Ketones Urine Negative (Negative); Leukocyte Esterase Urine Negative (Negative); Nitrate Urine Negative (Negative); Protein Urine Negative (Negative); Urine Appearance Clear (CLEAR); Urine Color Yellow (Yellow); Urobilinogen Urine 0.2 mg/dL (Negative)
[2024-05-18 03:05] LABS: Add Urine Microscopic? YES; Bacteria Urine None Seen /hpf; Hyaline Casts Urine 0-4 /lpf; RBC Urine 0-2 /hpf (0-2); Squamous Epithelial Cell Urine 0-5 /hpf (0-5); WBC Urine 0-5 /hpf (0-5)
[2024-05-18 03:07] LABS: Specific Gravity, Urine 1.045 (1.005-1.030)
[2024-05-18 03:48] LABS: Basophils # 0.1 10^3/uL (0.0-0.1); Basophils % 1.3 %; Eosinophils # 0.4 10^3/uL (0.0-0.8); Eosinophils % 6.2 %; Hematocrit 37.5 % (37-53); Lymphocytes # 1.4 10^3/uL (0.8-4.8); Lymphocytes % 23.4 %; Mean Corpuscular HGB Conc 33.6 g/dL (30-55); Mean Corpuscular Hemoglobin 34.2 pg (27-33); Mean Corpuscular Volume 101.9 fl (82-101); Mean Platelet Volume 9.9 fL (7.4-10.4); Monocytes # 0.6 10^3/uL (0.2-0.9); Monocytes % 9.7 %; Neutrophils # 3.61 10^3/uL (1.8-7.7); Neutrophils % 59.1 %; Nucleated Red Blood Cells % 0 %; Platelet Count 172 10^3/cmm (157-399); Red Blood Count 3.68 10^6/uL (3.85-5.65); Red Cell Distribution Width 12.4 % (12.1-15.1); White Blood Count 6.11 10^3/uL (3.29-11.43)
[2024-05-18 04:06] LABS: Alanine Aminotransferase 14 U/L (0-41); Albumin Level 3.6 g/dL (3.5-5.2); Alkaline Phosphatase 74 U/L (40-130); Anion Gap 13.8 (5-19); Aspartate Amino Transferase 14 U/L (0-40); Blood Urea Nitrogen 6 mg/dL (8-23); Calcium 8.5 mg/dL (8.5-10.5); Carbon Dioxide 26 mmol/L (22-29); Chloride 105 mmol/L (98-107); Creatinine Clr Calc Pharmacy 69.6379; Globulin 1.9 g/dL (1.3-4.6); Glucose 127 mg/dL (65-115); Magnesium 1.8 mg/dL (1.7-2.3); Osmolality Calculated 291 mOsm/kg (285-295); Phosphorus 3.4 mg/dL (2.5-4.5); Potassium 3.8 mmol/L (3.5-5.1); Sodium 141 mmol/L (136-145); Total Bilirubin 0.4 mg/dL (0.15-1.2); Total Protein 5.5 g/dL (6.6-8.7)
[2024-05-18 04:07] LABS: Partial Thromboplastin Time 76.5 SECONDS (23.9-36.7)
[2024-05-18] MEDS: morphine 4 mg/mL SDV 1 mL 2 MG IVP ×3 (04:17→19:41)
[2024-05-18] MEDS: aspirin 81 mg EC Tablet PO (05:15)
--- NOTE | 2024-05-18 06:21 | XACV_ITS ---
Ht: 165 cm Wt: 73 kg BSA: 1.85 m2 Any Known Allergies: No known allergies Gender: Male : 1950 Exam Type: Invasive Peripheral Vascular Procedure(s): Procedure Description: Peripheral Cath Diagnostic Procedure Procedure Description: Abdominal aortic angiography Procedure Description: Lower extremities' angiography Exam Priority: Routine Abdominal Diagnostic Findings INDICATION: Critical limb ischemia of right lower extremity. Distal abdominal aorta: Patent. Lower Extremity Diagnostic Findings Right lower extremity: Right common iliac arteries patent. Right external iliac artery is patent. Right common femoral artery is patent. Right common femoral artery is proximally patent. In the distal common femoral artery there is a stent extending into proximal SFA that is occluded. SFA is totally occluded and has occluded distal stent. In the distal segment of the vessel, reconstitution via collaterals. Popliteal artery is patent. Below the knee anterior tibial artery is patent however is diffusely diseased and small caliber. Peroneal artery is diffusely diseased and small caliber. Posterior tibial artery subtotally occluded proximally and is totally occluded in the distal segment. Left lower extremity: No runoff performed. Left common iliac artery is patent with patent prior stent. Left external iliac artery is patent with prior stents. Lower Extremity Interventional Findings Procedure detail. After diagnostic angiogram was performed, we switched 6 Khmer short sheath from left common femoral artery to 45 cm long sheath and went up and over to the right external iliac artery. Using seeker support catheter and Glidewire were able to cross the proximal stent. However mid to distal SFA stent could not be crossed despite using different wires. As there is good target for popliteal artery bypass, we decided to abort further attempts at revascularization percutaneously and send patient for vascular surgery evaluation for possible bypass.. Conclusions Totally occluded right SFA with occluded prior stents. Unsuccessful revascularization attempt. Recommendations We will transfer patient for vascular surgery evaluation for possible bypass surgery. We will resume heparin once sheath is removed. Hemodynamic Data Phase:Rest AO : 154.0 / 71.0 ( 103.0 ) @ 9:09:00 AM Access Site Site: Left Femoral artery Sheath Size: 6 Fr Hemost... Method: Suture Hemost... Success: Successful Procedure Details Findings Pre-Procedure Time Out. Identified patient by full name and date of as verbalized by the patient/guarantor. Does the consent match the physician's order: Yes. Accurate & Complete Informed Consent: Yes. Inpatient/Outpatient History & Physical on Chart: Yes. If H&P is completed, is and addenduem needed: No; If yes, is the addendum complete: N/A. Visualize and Verify Site with Patient/Guarantor: N/A. Relevant Radiology Images available: Yes. Pre-op teaching completed and patient verbalized understanding. The risks, benefits, and alternatives of sedation and/or procedure were discussed by physician. The patient agrees to continue. Procedure started. PERRLA. Strong, equal hand licensed professional counselor bilaterally. Lungs clear x 5 lobes. IV Site on Arrival: 20 gauge in the left anticubital. IV Fluids: 0.9% NaCl at KVO. 0 mL infused prior to livestock laborer. Pre Procedural Pulses: right dorsalis pedis was Absent. Pre Procedural Pulses: right posterior tibial was Absent. Oxygen started at 2liters/min via nasal canula. bilateral groins was prepped with chloroprep then draped in the usual sterile fashion. Baseline sample Acquired. HR: 63 BPM. Physician arrived. Physician scrubbed in. Immediate Pre-Procedure Time Out. Correct Patient: Yes; Correct Procedure: Yes; Correct Site: Yes; Correct Patient Position: Yes; Correct Supplies: Yes; Dried Flammable Prep: Yes; Blood Products Available: N/A;. Lidocaine 1% infiltrated to the left groin. Arterial access obtained with micropuncture set. A 5Fr UF catheter in over wire. Abdominal aortogram with runoff performed in AP @ 10 mL/sec for a total of 30 mL. Glidewire inserted through the catheter and advanced to the right iliac. Catheter removed over the glide wire. The 6Fr sheath was exchanged for a 45cm 6Fr Flexor sheath. Sheath injected in Right common femoral artery and runoff performed. DSA performed of the right lower leg. Seeker catheter inserted OTW. Glidewire removed. Command wire inserted. Seeker catheter removed. Navicross inserted. Wire out. Contrast injected through the catheter. Glidewire inserted. Navicross removed. The sheath hooked up to heparnized saline at KVO to maintain patency. Seeker inserted OTW. Command wire inserted. Wire removed. 300cm Runthrough wire inserted. Wire out. Fielder XT wire inserted. Wire out. Runthrough wire inserted. Wire and catheter out. The sheath was exchanged for a short 6Fr sheath. A Suture was successful obtaining hemostatsis at the Left Femoral artery insertion site. Sheath(s) sutured into position with 2-0 silk and sterile 4x4's and Op-site applied over the site. No oozing or signs and symptoms of hematoma noted. Arterial sheath flushed and connected to tranducer and pressure bag with heparinized saline. Post Procedure: Pulses reassessed and unchanged. PERRLA. Strong, equal hand licensed professional counselor bilaterally. No VTE prophylaxis required. Medication's Wasted: Other = Fentanyl 75mcg Versed 1 mg. Total IV fluids: 100 mL. Post-op diagnosis: PAD. Complications: None. Estimated blood loss: 5mL-10mL. Responsiveness - Normal response to verbal stimuli; alert and oriented, PERRLA. Airway - Unaffected, no intervention required; spontaneous ventilation. Circulation: W/N/L, pulses unchanged. Nausea/Vomiting: No. Procedure completed. Patient transferred by bed to 1st floor. Vital chart was stopped. ACT drawn. Results 197 seconds. Therapeutic limits - pre-heparin administration 90-150 seconds and monitoring heparin during a vascular procedure >250 seconds. Glidewire inserted. Procedure Medications Start: 8:59 AM Stop: 8:59 AM Medication: Fentanyl Amount: 50 mcg Route: I.V. Start: 9:05 AM Stop: 9:05 AM Medication: Versed 1 mg and Fentanyl 25 mcg Amount: 1 Route: I.V. Start: 9:09 AM Stop: 9:09 AM Medication: Fentanyl Amount: 25 mcg Route: I.V. Start: 9:12 AM Stop: 9:12 AM Medication: Versed Amount: 1 mg Route: I.V. Start: 9:37 AM Stop: 9:37 AM Medication: Heparin Amount: 3000 units Route: I.V. Start: 10:01 AM Stop: 10:01 AM Medication: Versed 1 mg and Fentanyl 25 mcg Amount: 1 Route: I.V. I, the attending physician, have reviewed and verified all procedure medications. Yes, all medications given per verbal order History/Risk Factors Hypertension: Yes Dyslipidemia: Yes Peripheral Arterial Disease (PAD): Yes Obesity: No Renal Disease: No Tobacco Use: Former Prior Interventions PCI: No CABG: No Valve Surgery: No Report Signatures Finalized by Jovon Quigley MD on 05/18/2024 05:33 PM
[2024-05-18] MEDS: sodium chloride 0.9% 1,000 ML 75 ML IV (06:32)
[2024-05-18] MEDS: metoprolol succinate ER (24 HR) 25 mg Tablet 50 MG PO (08:11)
--- NOTE | 2024-05-18 09:00 | W.PM.OPSUD ---
Surgery/Procedure H&P Update DATE OF PROCEDURE: May 18, 2024 DATE H&P PERFORMED: 05/17/24 H&P UPDATE INFORMATION: I have reviewed H&P completed within last 30 days, I have examined patient prior to procedure and No changes to prior documentation PREOP DIAGNOSIS: Critical limb ischemia PRIMARY INDICATION FOR PROCEDURE: Critical limb ischemia PLANNED PROCEDURE: Peripheral angiogram with possible intervention PATIENT REASSESSED PRIOR TO SEDATION, WITH NO CHANGE NOTED: Yes PHYSICAL EXAM: alert, oriented x 3 (Pulses not palpable in right lower extremity), clear to auscultation bilaterally and regular rate & rhythm AIRWAY EVAL/ANESTHESIA PLAN: normal airway, ASA III, Local Anesthesia, Risks, benefits & alternatives of sedation and/or procedure discussed and Patient agrees to continue as planned ADDITIONAL INFORMATION: Moderate sedation
--- NOTE | 2024-05-18 09:07 | PC.NURSE ---
Addendum entered by Gaby Zaman RN 05/18/24 09:10: Heparin drip off at time patient taken to label fuser tender Original Note: Patient taken to label fuser tender via bed
--- NOTE | 2024-05-18 10:18 | PC.NURSE ---
Patient in bolt labeler presently.
--- NOTE | 2024-05-18 10:40 | PM.PROC ---
Procedure Note: Date of procedure: 05/18/24 Pre-procedure diagnosis: Critical limb ischemia Post-procedure diagnosis: other (Totally occluded SFA stents. ) Procedure: Patient has patent iliac arteries bilaterally. Right SFA has prior stents that are totally occluded. Attempted revascularization unsuccessful as wires could not cross occluded segment. Below the knee has severe peripheral artery disease. Diffusely diseased but patent anterior tibial artery. Diffusely diseased peroneal artery. Right posterior tibial artery is occluded in mid to distal segment. We will discuss with vascular surgery regarding transfer for possible femoropopliteal bypass surgery. Will resume anticoagulation 4 hours after sheath pull. Performing Provider: Jovon Quiglye Estimated blood loss (mL): 5 Complications: None Condition: stable Disposition: floor Coding Level of Care Code Acute Code for [facility]
--- NOTE | 2024-05-18 11:22 | PC.NURSE ---
patient received from clinical laboratory scientist at this time. Patient is s/p peripheral angiogram via left femoral arthery. Patient has sheath attached to pressure bag in place. Heparin drip remains paused until 4hours post sheath removal. Will remove sheath at ~1150. Instructed patient on site care and restrictions. Patient verbalized complete understanding.
--- NOTE | 2024-05-18 12:43 | PC.NURSE ---
Initiated sheath pull at 1154 per protocol. Hemostasis achieved immediately. Maintained pressure to site for 20min. No s/s of bleeding or hematoma formation observed. Covered site with foldedd 4x4s and bio-occlusive dressing. Repositioned patient for comfort due to severe back pain. Administered patient medication as ordered and documented for pain. Instructed patient on site care with restrictions. Dr Dumont into see patient and discussed plan for transfer to another facility. Patient verbalized complete understanding for all instructions. Will continue to monitor.
--- NOTE | 2024-05-18 13:23 | P.PN_ITS ---
<Statement entered by Jovon Quigley M.D - 05/18/24 23:38> Patient was evaluated and cared for in conjunction with an advanced practice practitioner. I personally examined the patient and reviewed the chart and all pertinent data including imaging, telemetry, and laboratory results. I discussed the patient in detail with the advanced practice practitioner. Please see their note for complete progress note, results and agreed upon plan of care for the patient. No resting leg pain. Right foot temperature and color are improved. Patient had peripheral angiogram and was found to totally occluded right SFA stents. Unsuccessful revascularization attempt. Plan for transfer to vascular surgery for possible bypass surgery. Patient is at acceptable cardiac risk to undergo vascular procedure. Had stress test few months back without significant ischemia. GENERAL: Patient is alert and oriented HEART: Regular S1 and S2 LUNGS: Clear to auscultation bilaterally EXTREMITIES: Lower extremities with no edema. Right foot pulses are not palpable. Subjective 2 Subjective: Patient underwent peripheral angiogram this morning: Right SFA has prior stents which are totally occluded, unable to cross the occluded segment with a wire. Severe PAD below the knee. Patent anterior tibial, peroneal with diffuse disease. Right posterior tibial occluded in the mid to distal segment. Dr. Quigley has discussed case with vascular surgery, plan is to transfer him to [place] for possible femoral-popliteal bypass surgery. He has had a Lexiscan stress test 5 months ago which did not show evidence of ischemia. From cardiac perspective he is considered acceptable risk for an open femoral- popliteal bypass surgery. When he is given a bed assignment in [place] will notify hospitalist. Vitals/I&O/Wt Last Vital Signs Temp 97.9 F 05/18/24 12:00 Pulse 65 05/18/24 12:00 Resp 18 05/18/24 12:24 BP 148/87 05/18/24 12:00 Pulse Ox 99 05/18/24 12:00 O2 Del Method Room Air 05/18/24 12:00 05/17/24 05/18/24 05/18/24 22:59 06:59 14:59 Intake Total 613.1 / 1665.2 1052.1 / 1665.2 319.333 / 319.333 Output Total 0 / 825 825 / 825 Balance 613.1 / 840.2 227.1 / 840.2 319.333 / 319.333 Weight last 48 hrs Weight 162 lb 6 oz Weight 162 lb 6 oz Weight 160 lb Physical Exam 2 Const: COMMON NORMALS: no acute distress and patient oriented x3 GENERAL APPEARANCE: cooperative and comfortable ORIENTATION/CONSCIOUSNESS: Yes awake, Yes oriented to person, Yes oriented to place and Yes oriented to time Chest: COMMONS NORMALS: normal inspection of the chest and normal palpation of entire chest wall CHEST: Yes Symmetrical chest wall rise Resp: COMMON NORMALS: normal respiratory effort, No retractions, No use of accessory muscles and clear to auscultation bilaterally EFFORT & INSPECTION: Yes symmetric chest movement AUSCULTATION: clear to auscultation bilaterally Cardio: COMMON NORMALS: regular rate, S1 normal heart sound present, S2 normal heart sound present, No gallops present (Cardio), No clicks present (Cardio), No murmurs present (Cardio) and No rub (Cardio) RATE: regular rate RHYTHM: a bnormal rhythm irregularly irregular HEART SOUNDS: S1 normal heart sound present and S2 normal heart sound present PERIPHERAL PULSES: radial pulses present Extremity: COMMON NORMALS: no pedal edema Neuro: COMMON NORMALS: patient oriented x3 and moves all extremities S ENSORIUM/ORIENTATION: Yes oriented to person, Yes oriented to place and Yes oriented to time Data 05/18/24 03:38 05/18/24 03:38 Micro: Microbiology 05/17/24 20:33 Blood Culture - Preliminary Blood SPECIMEN COLLECTED 05/17/24 20:28 Blood Culture - Preliminary Blood SPECIMEN COLLECTED A&P Assessment and plan (1) Critical limb ischemia of right lower extremity: Plan is for transfer to vascular surgery in [place] for possible femoral- popliteal bypass. (2) Atrial fibrillation: In atrial fibrillation currently, good ventricular rate control. He will restart heparin drip at 1600, 4 hours after femoral sheath pull. Attestations 2 Medical Necessity Statement*: Plan for transfer to [place] for vascular surgery Coding Level of Care Code Acute Code for [facility] Diagnoses Critical limb ischemia of right lower extremity I70.221 Atrial fibrillation I48.91
--- NOTE | 2024-05-18 13:26 | P.TS_ITS ---
Transfer Summary Providers Date of Admission: 05/17/24 16:39 Date of Discharge/Transfer: 05/18/24 Attending Provider at Admission: Pan Dmuont MD Attending Provider at Transfer: Pan Dumont MD Primary Care Provider: Nayana Chavez APN Transfer Plans: Anticipated date of transfer: 05/18/24 . Diagnoses at Discharge Discharge Diagnosis (1) Critical limb ischemia of right lower extremity: Status: Acute (2) CAD (coronary artery disease): Status: Acute Qualifiers: Associated angina: without angina Coronary Disease-Associated Artery/Lesion type: [place] artery [place] vs. transplanted heart: [place] heart Qualified Code(s): I25.10 - Atherosclerotic heart disease of [place] coronary artery without angina pectoris (3) Atrial fibrillation: Status: Acute (4) Peripheral artery disease: Status: Acute (5) Hyperlipemia: Status: Acute (6) HTN (hypertension): Status: Acute Reason for Visit Reason for Visit right leg pain Hospital Course Hospital Course Juan Fulton is a 73 year old male with a past medical history of smoking, hypertension, hyperlipidemia, history of peripheral vascular disease, requiring intervention and stenting in the past, who presents [facility] due to pain in his right lower extremity for the last 4 days. Patient tells me that he has been out of Plavix for the last week or so, but is using aspirin, statin, he says that for the last 4 days he had pain in his right lower extremity, he tells me the right lower extremity started to look blue, with discoloration, severe pain he is not able to walk due to severe pain, due to severe persistent pain, poikilothermia he present to the emergency room, no chest pain, no palpitations, no headache, blurry vision, no strokelike symptoms Patient was admitted to [facility] for critical limb ischemia, right lower extremity, -CTA aortogram CT/CT angio abd aorta runof 85461 IMPRESSION: 1. Occluded right common femoral artery and SFA stent and graft. Reconstitution of the right popliteal artery just distal to the graft with moderate narrowing throughout the right popliteal artery. Multilevel stenoses of the right calf vessels with occlusion of the right posterior tibial artery and decreased flow in patent distal right peroneal and anterior tibial arteries. 2. High-grade stenosis of the distal left SFA. Three-vessel runoff on the left. 3. Multiple minor findings described above. -Managed as inpatient aspirin, statin, Plavix, heparin drip, cardiology consulted -Underwent vascular invention here at [facility] found to have right SFA has prior stents that are totally occluded. Attempted revascularization unsuccessful as wires could not cross occluded segment. Below the knee has severe peripheral artery disease. Diffusely diseased but patent anterior tibial artery. Diffusely diseased peroneal artery. Right posterior tibial artery is occluded in mid to distal segment. -Cardiology spoke to vascular surgery emergency, for consideration of femoropopliteal bypass, patient has been accepted in transfer -Patient was seen postprocedure is alert and awake, following all commands, denies any pain in his right lower extremity, discussed transfer, he understands risk and benefits, voices understanding, all questions answered, agreed to proceed -Heparin drip will be resumed, resume aspirin, Plavix, statin after procedure -Patient underwent stress testing December 02, 2023 IMPRESSIONS 1. Attenuation artifact seen in inferior wall. No evidence of ischemia. 2. LV systolic function is normal. -Denies any chest pain, no shortness of breath -EKG shows atrial fibrillation, rate controlled Physical Exam Const: COMMON NORMALS: no acute distress and patient oriented x3 Resp: COMMON NORMALS: normal respiratory effort, No retractions, No use of accessory muscles and clear to auscultation bilaterally AUSCULTATION: clear to auscultation bilaterally Cardio: COMMON NORMALS: regular rate, regular rhythm, S1 normal heart sound present and S2 normal heart sound present RATE: regular rate RHYTHM: regular rhythm HEART SOUNDS: S1 normal heart sound present and S2 normal heart sound present GI: COMMON NORMALS: Normal to inspection, nondistended, normoactive bowel sounds present, Soft to palpation and non-tender PALPATION: Yes Soft to palpation Extremity: NARRATIVE EXTREMITY EXAM: Right lower extremity, no DVT pulses, bluish discoloration right lower extremity, able to move right lower extremity, pain is minimal, right lower extremity cool to touch Neuro: COMMON NORMALS: patient oriented x3 Psych: COMMON NORMALS: mental status grossly normal TS Data Studies Completed and Pending Pending at discharge Category Date Time Status [employer] request for service Routine Exams 05/18/24 06:21 Ordered Blood Culture Routine Lab 05/17/24 20:33 Results Complete Blood Count w/Auto AM LABS Lab 05/19/24 04:00 Ordered Complete Blood Count w/Auto AM LABS Lab 05/20/24 04:00 Ordered Comprehensive Metabolic Panel AM LABS Lab 05/19/24 04:00 Ordered Comprehensive Metabolic Panel AM LABS Lab 05/20/24 04:00 Ordered Magnesium AM LABS Lab 05/19/24 04:00 Ordered Magnesium AM LABS Lab 05/20/24 04:00 Ordered Phosphorus AM LABS Lab 05/19/24 04:00 Ordered Phosphorus AM LABS Lab 05/20/24 04:00 Ordered Platelet Count Q2D Lab 05/19/24 04:00 Ordered Platelet Count Q2D Lab 05/21/24 04:00 Ordered Completed Studies During Hospitalization Category Date Time Status CT angio abd aorta runof 15815 Stat Cat Scan 05/17/24 12:51 [place] [id number] Stat Ultrasound 05/17/24 11:27 Completed Laboratory Last Values WBC 6.11 10^3/uL (3.29-11.43) 05/18/24 03:38 RBC 3.68 10^6/uL (3.85-5.65) L 05/18/24 03:38 Hgb 12.60 g/dL (11.27-16.99) 05/18/24 03:38 Hct 37.5 % (37-53) 05/18/24 03:38 MCV 101.9 fl (82-101) H 05/18/24 03:38 MCH 34.2 pg (27-33) H 05/18/24 03:38 MCHC 33.6 g/dL (30-55) 05/18/24 03:38 RDW 12.4 % (12.1-15.1) 05/18/24 03:38 Plt Count 172 10^3/cmm (157-399) 05/18/24 03:38 MPV 9.9 fL (7.4-10.4) 05/18/24 03:38 Neut % (Auto) 59.1 % 05/18/24 03:38 Lymph % (Auto) 23.4 % 05/18/24 03:38 [place] % (Auto) 9.7 % 05/18/24 03:38 Eos % (Auto) 6.2 % 05/18/24 03:38 Baso % (Auto) 1.3 % 05/18/24 03:38 Neut # (Auto) 3.61 10^3/uL (1.8-7.7) 05/18/24 03:38 Lymph # (Auto) 1.4 10^3/uL (0.8-4.8) 05/18/24 03:38 [place] # (Auto) 0.6 10^3/uL (0.2-0.9) 05/18/24 03:38 Eos # (Auto) 0.4 10^3/uL (0.0-0.8) 05/18/24 03:38 Baso # (Auto) 0.1 10^3/uL (0.0-0.1) 05/18/24 03:38 Nucleated RBC % (auto) 0 % 05/18/24 03:38 Nucleated RBCs # 0.0 /100WBC 05/18/24 03:38 PT 12.60 SECONDS (12.1-14.9) 05/17/24 12:20 INR 0.88 (0.8-1.2) 05/17/24 12:20 APTT 76.5 SECONDS (23.9-36.7) H 05/18/24 03:38 Sodium 141 mmol/L (136-145) 05/18/24 03:38 Potassium 3.8 mmol/L (3.5-5.1) 05/18/24 03:38 Chloride 105 mmol/L (98-107) 05/18/24 03:38 Carbon Dioxide 26 mmol/L (22-29) 05/18/24 03:38 Anion Gap 13.8 (5-19) 05/18/24 03:38 BUN 6 mg/dL (8-23) L 05/18/24 03:38 Creatinine 0.9 mg/dL (0.7-1.2) 05/18/24 03:38 GFR Calculation Not Reportable 05/18/24 03:38 Glucose 127 mg/dL (65-115) H 05/18/24 03:38 Estimat Average Glucose 111 05/17/24 20:28 Hemoglobin A1c 5.5 % (4.0-6.0) 05/17/24 20:28 Calculated Osmolality 291 mOsm/kg (285-295) 05/18/24 03:38 Lactic Acid 2.0 mmol/L (0.5-2.2) 05/17/24 12:20 Calcium 8.5 mg/dL (8.5-10.5) 05/18/24 03:38 Phosphorus 3.4 mg/dL (2.5-4.5) 05/18/24 03:38 Magnesium 1.8 mg/dL (1.7-2.3) 05/18/24 03:38 Total Bilirubin 0.4 mg/dL (0.15-1.2) 05/18/24 03:38 AST 14 U/L (0-40) 05/18/24 03:38 ALT 14 U/L (0-41) 05/18/24 03:38 Alkaline Phosphatase 74 U/L (40-130) 05/18/24 03:38 NT-Pro-B Natriuret Pep 277 pg/mL (0-125) H 05/17/24 12:20 Total Protein 5.5 g/dL (6.6-8.7) L D 05/18/24 03:38 Albumin 3.6 g/dL (3.5-5.2) 05/18/24 03:38 Globulin 1.9 g/dL (1.3-4.6) 05/18/24 03:38 Triglycerides 58 mg/dL (0-150) 05/17/24 20:28 Cholesterol 104 mg/dL (0-200) 05/17/24 20:28 LDL Cholesterol, Calc 32 mg/dL (50-129) L 05/17/24 20:28 HDL Cholesterol 60 mg/dL (60-100) 05/17/24 20:28 LDL/HDL Ratio 0.53 RATIO (0.00-3.22) 05/17/24 20:28 Cholesterol/HDL Ratio 1.73 mg/dL (1.0-5.00) 05/17/24 20:28 Procalcitonin 0.04 ng/mL (0-0.5) 05/17/24 12:20 TSH 5.53 uIU/mL (0.27-4.20) H 05/17/24 20:28 Urine Color Yellow (Yellow) 05/18/24 02:45 Urine Appearance Clear (CLEAR) 05/18/24 02:45 Urine pH 6.0 (5-7) 05/18/24 02:45 Ur Specific [place] 1.045 (1.005-1.030) H 05/18/24 02:45 Urine Protein Negative (Negative) 05/18/24 02:45 Urine Glucose (UA) Negative (Normal) 05/18/24 02:45 Urine Ketones Negative (Negative) 05/18/24 02:45 Urine Blood Negative (Negative) 05/18/24 02:45 Urine Nitrate Negative (Negative) 05/18/24 02:45 Urine Bilirubin Negative (Negative) 05/18/24 02:45 Urine Urobilinogen 0.2 mg/dL (Negative) 05/18/24 02:45 Ur Leukocyte Esterase Negative (Negative) 05/18/24 02:45 Urine RBC 0-2 /hpf (0-2) 05/18/24 02:45 Urine WBC 0-5 /hpf (0-5) 05/18/24 02:45 Ur Squamous Epith Cells 0-5 /hpf (0-5) 05/18/24 02:45 Amorphous Sediment Not Reportable 05/18/24 02:45 Urine Bacteria None seen /hpf (NONE) 05/18/24 02:45 Hyaline Casts 0-4 /lpf H 05/18/24 02:45 Radiology Impressions Duplex Scan Lower Extremity Artery 05/17/24 11:27 IMPRESSION: Occluded right common femoral artery stent. Low volume monophasic flow in patent proximal right SFA with occlusion of the mid to distal SFA. Low volume monophasic flow in right popliteal artery and right calf vessels. No demonstrated flow in the right dorsalis pedis. Aorta w/Runoff CTA 05/17/24 12:51 IMPRESSION: 1. Occluded right common femoral artery and SFA stent and graft. Reconstitution of the right popliteal artery just distal to the graft with moderate narrowing throughout the right popliteal artery. Multilevel stenoses of the right calf vessels with occlusion of the right posterior tibial artery and decreased flow in patent distal right peroneal and anterior tibial arteries. 2. High-grade stenosis of the distal left SFA. Three-vessel runoff on the left. 3. Multiple minor findings described above. Recent Clincial Data Last Vital Signs Temp 97.9 F 05/18/24 12:00 Pulse 65 05/18/24 12:00 Resp 18 05/18/24 12:24 BP 148/87 05/18/24 12:00 Pulse Ox 99 05/18/24 12:00 O2 Del Method Room Air 05/18/24 12:00 Vital Signs Temp Pulse Resp BP BP Pulse Ox O2 Del Method 05/18/24 12:24 18 05/18/24 12:00 65 18 148/87 99 Room Air 05/18/24 12:00 97.9 F 65 20 H 164/58 99 Room Air 05/18/24 11:22 58 L 12 141/83 98 05/18/24 11:08 56 L 14 148/87 Room Air 05/18/24 10:55 76 14 135/62 Room Air 05/18/24 10:40 73 15 138/65 Room Air 05/18/24 07:19 97.8 F 62 12 111/63 99 Room Air 05/18/24 04:40 98 F 55 L 19 H 135/63 95 Room Air 05/18/24 04:17 18 99 Intake & Output/Weight 05/16/24 05/17/24 05/18/24 05/19/24 06:59 06:59 06:59 06:59 Intake Total 1665.2 / 1665.2 319.333 / 319.333 Output Total 825 / 825 Balance 840.2 / 840.2 319.333 / 319.333 Weight 73.652 kg Vitals Last Vital Signs Temp 97.9 F 05/18/24 12:00 Pulse 65 05/18/24 12:00 Resp 18 05/18/24 12:24 BP 148/87 05/18/24 12:00 Pulse Ox 99 05/18/24 12:00 O2 Del Method Room Air 05/18/24 12:00 TS Medications Medications Acetaminophen (Acetaminophen 325 Mg Tablet) 650 mg PO Q6H PRN PRN Reason: Mild/Mod Pain Or Temp >/= 101 Last Admin: 05/18/24 02:39 Dose: 650 mg Albuterol Sulfate (Albuterol 2.5 Mg/3 Ml Neb) 2.5 mg INHALATION Q6H.RESP PRN PRN Reason: SHORTNESS OF BREATH Aspirin (Aspirin 81 Mg Ec Tablet) 81 mg PO QAM [facility] Last Admin: 05/18/24 05:15 Dose: 81 mg Atorvastatin Calcium (Atorvastatin 40 Mg Tablet) 80 mg PO QPM [facility] Last Admin: 05/17/24 18:03 Dose: 80 mg Clopidogrel Bisulfate (Clopidogrel 75 Mg Tablet) 75 mg PO DAILY [facility] Heparin Sodium (Porcine) (Heparin 5,000 Unit/Ml Inj 1 Ml) 0 unit IVP PRN PRN; Protocol PRN Reason: Heparin Weight Based Protocol -Subsequent Bolus Heparin Sodium/Sodium Chloride (Heparin Drip) 25,000 unit in 500 mls @ 0 mls/hr IV CONT [facility]; Protocol Last Titration: 05/18/24 08:55 Dose: 0 unit/kg/hr, 0 mls/hr Sodium Chloride (Sodium Chloride 0.9%) 1,000 mls @ 75 mls/hr IV .[id number] [facility] Last Admin: 05/18/24 06:32 Dose: 75 mls/hr Metoprolol Succinate (Metoprolol Succinate Er (24 Hr) 25 Mg Tablet) 50 mg PO DAILY [facility] Last Admin: 05/18/24 08:11 Dose: 50 mg Metoprolol Succinate (Metoprolol Succinate Er (24 Hr) 25 Mg Tablet) 25 mg PO QPM [facility] Last Admin: 05/17/24 18:03 Dose: 25 mg Morphine Sulfate (Morphine 4 Mg/Ml Sdv 1 Ml) 2 mg IVP Q4H PRN PRN Reason: SEVERE PAIN Last Admin: 05/18/24 12:24 Dose: 2 mg Ondansetron HCl (Ondansetron 2 Mg/Ml Sdv 2 Ml) 4 mg IVP Q8H PRN PRN Reason: vomiting, or N/V if npo Pantoprazole Sodium (Pantoprazole 40 Mg Sdv) 40 mg IVP Q24H [facility] Last Admin: 05/17/24 18:02 Dose: 40 mg Discontinued Medications Fentanyl (Fentanyl 50 Mcg/Ml Inj 2ml) Confirm Administered Dose 100 mcg .ROUTE .STK-MED ONE Stop: 05/18/24 08:32 Fentanyl (Fentanyl 50 Mcg/Ml Inj 2ml) Confirm Administered Dose 100 mcg .ROUTE .STK-MED ONE Stop: 05/18/24 09:13 Heparin Sodium (Porcine) (Heparin 5,000 Unit/Ml Inj 1 Ml) 0 unit IVP ONCE ONE; Protocol Stop: 05/17/24 12:52 Last Increment: 05/17/24 14:03 Dose: 3,700 unit Incremental Dosing Total Given: 3,700 unit Heparin Sodium (Porcine) (Heparin 5,000 Unit/Ml Inj 1 Ml) Confirm Administered Dose 5,000 unit .ROUTE .STK-MED ONE Stop: 05/18/24 08:28 Heparin Sodium (Porcine) (Heparin 5,000 Unit/Ml Inj 1 Ml) Confirm Administered Dose 5,000 unit .ROUTE .STK-MED ONE Stop: 05/18/24 09:34 Lidocaine HCl (Xylocaine) Confirm Administered Dose 20 mls @ as directed .ROUTE .STK-MED ONE Stop: 05/18/24 08:32 Sodium Chloride (Sodium Chloride 0.9%) Confirm Administered Dose 1,000 mls @ as directed .ROUTE .STK-MED ONE Stop: 05/18/24 08:32 Midazolam HCl (Midazolam 1 Mg/Ml Inj 2 Ml) Confirm Administered Dose 2 mg .ROUTE .STK-MED ONE Stop: 05/18/24 08:32 Midazolam HCl (Midazolam 1 Mg/Ml Inj 2 Ml) Confirm Administered Dose 2 mg .ROUTE .STK-MED ONE Stop: 05/18/24 09:13 Allergies No Known Allergies Allergy (Verified 01/17/24 14:12) Home Medications albuterol sulfate 90 mcg/actuation aerosol inhaler 2 puff inhalation Q6H PRN shortness of breath 07/16/22 [History Confirmed 05/17/24] cholecalciferol (vitamin D3) 50 mcg (2,000 unit) capsule 50 mcg PO DAILY 07/16/22 [History Confirmed 05/17/24] fluticasone propionate 50 mcg/actuation nasal spray,suspension (Allergy Relief (fluticasone)) 1 spray intranasal DAILY PRN ALLERGIES 07/16/22 [History Confirmed 05/17/24] olmesartan 20 mg tablet 20 mg PO QAM 07/16/22 [History Confirmed 05/17/24] omega 8-[id number]-[id number]-fish oil 1,200 mg (144 mg-216 mg) capsule (Fish Oil) 1 cap PO DAILY 07/16/22 [History Confirmed 05/17/24] rosuvastatin 20 mg tablet 20 mg PO QPM 07/16/22 [History Confirmed 05/17/24] ferrous sulfate 325 mg (65 mg iron) tablet 325 mg PO DAILY 10/05/23 [History Confirmed 05/17/24] metoprolol succinate 25 mg tablet,extended release 24 hr See Rx Instructions .Route .COMPLEX #270 tabs 04/18/24 [Rx Confirmed 05/17/24] clopidogrel 75 mg tablet 75 mg PO DAILY #90 tabs 05/16/24 [Rx Confirmed 05/17/24] aspirin 81 mg tablet,delayed release 81 mg PO QAM 05/17/24 [History Confirmed 05/17/24] Discharge Plan Discharge Patient Disposition: Home Condition: Stable Prescriptions: No Action fluticasone propionate [Allergy Relief (fluticasone)] 50 mcg/actuation spray,suspension 1 spray intranasal DAILY PRN (Reason: ALLERGIES) Rx Instructions: administer into each nostril rosuvastatin 20 mg tablet 20 mg PO QPM olmesartan 20 mg tablet 20 mg PO QAM albuterol sulfate 90 mcg/actuation HFA aerosol inhaler 2 puff inhalation Q6H PRN (Reason: shortness of breath) cholecalciferol (vitamin D3) 50 mcg (2,000 unit) capsule 50 mcg PO DAILY omega 5-[id number]-bxz-fish oil [Fish Oil] 1,200 (144-216) mg capsule 1 cap PO DAILY metoprolol succinate 25 mg tablet extended release 24 hr See Rx Instructions .ROUTE .COMPLEX Qty: 270 3RF Dose Instruction: TAKE TWO TABLETS BY MOUTH EVERY MORNING and TAKE ONE TABLET BY MOUTH EVERY EVENING Rx Instructions: TAKE TWO TABLETS BY MOUTH EVERY MORNING and TAKE ONE TABLET BY MOUTH EVERY EVENING. clopidogrel 75 mg tablet 75 mg PO DAILY Qty: 90 3RF Hold Instructions: Resume on 01/13/24. ferrous sulfate 325 mg (65 mg iron) Tablet 325 mg PO DAILY aspirin 81 mg tablet,delayed release (DR/EC) 81 mg PO QAM Discharge Orders: Transfer Out of Facility (Order); Ordered 05/18/24 Ordered By: Pan Dumont Referrals: Nayana Chavez APN [Primary Care Provider] - Discharge Diet: Advance as tolerated Discharge Activity: Resume usual activity Patient Instructions: Opioid Safety Transfer Attestations Time Spent in Transfer Care: greater than 30 min Quality Metrics Clinical Quality Measures [ No reported AMI, CVA or VTE this stay] Coding Level of Care Code Critical Care >/= 30 minutes Critical care time (in minutes): 35 The high probability of a clinically significant, sudden or life threatening deterioration, as referenced in this documentation, required my full and direct attention, intervention and personal management. The critical care time shown is in addition to time spent performing any reported separately billable procedures and includes the following: [x] Data and vital sign review and interpretation [x ] Patient assessment, examination and intervention [x] Medication orders and management [x] Patient/Family updates as able [x] Care Coordination and Documentation. Diagnoses Critical limb ischemia of right lower extremity I70.221 Coronary artery disease involving [place] coronary artery of [place] heart without angina pectoris I25.10 Associated angina: without angina Coronary Disease-Associated Artery/Lesion type: [place] artery [place] vs. transplanted heart: [place] heart Atrial fibrillation I48.91 Peripheral artery disease I73.9 Hyperlipemia E78.5 HTN (hypertension) I10
--- NOTE | 2024-05-18 13:26 | ECG_ITS ---
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 Measurements Intervals [place] Rate: 69 P: 0 OR: 0 QRS: 59 QRSD: 83 T: 29 QT: 372 QTc: 400 Interpretive Statements ATRIAL FIBRILLATION SEPTAL MYOCARDIAL INFARCTION , PROBABLY OLD [40+ ms Q WAVE IN V1/V2] Compared to ECG 10/05/2023 11:31:14 Myocardial infarct finding now present Sinus rhythm no longer present Ventricular premature complex(es) no longer present Electronically Signed On 05-19-2024 09:02:29 STAFF NURSE MIDWIFE by Jovon Quigley M.D. [email or web address]
--- NOTE | 2024-05-18 13:37 | PC.NURSE ---
Patient called out c/o chest pain. EKG obtained. Informed Malinda Campuzano NP. Malinda into see patient at this time.
[2024-05-18] MEDS: clopidogrel 75 mg Tablet PO (16:19)
[2024-05-18] MEDS: pantoprazole 40 mg SDV IVP (16:19)
[2024-05-18] MEDS: heparin drip 25,000 UNIT/500 ML PREMIX 17 UNIT IV (16:20)
[2024-05-18 16:29] LABS: Partial Thromboplastin Time 27.7 SECONDS (23.9-36.7)
[2024-05-18] MEDS: metoprolol succinate ER (24 HR) 25 mg Tablet PO (17:24)
[2024-05-18] MEDS: atorvastatin 40 mg Tablet 80 MG PO (17:24)
--- NOTE | 2024-05-18 19:54 | PC.NURSE ---
Report called to Charity Ro RN at [facility]. All belongings gathered and sent with patient. Patient leaving off unit with EMS all IV lines patent and checked. Attempted to call caregiver Roland Palm but there was no answer and mailbox was full.
== END 2024-05-18 19:45 | disposition short-term general hospital (02) | DRG 301 ==
LOC: ER 15:02 → CSU 16:40
PROVIDERS: Internal Medicine; Admitting Provider Family Medicine; Emergency Provider Emergency Medicine; PCP Nurse Practitioner Family; Visit Provider Family Medicine
PROC: B41FYZZ Fluoroscopy of Right Lower Extremity Arteries using Other Contrast (ICD-10-PCS; principal; 2024-05-18 10:40)
DX: I70.221 Atherosclerosis of native arteries of extremities with rest pain, right leg (principal); I25.10 Atherosclerotic heart disease of native coronary artery without angina pectoris; I48.91 Unspecified atrial fibrillation; E78.5 Hyperlipidemia, unspecified; I10 Essential (primary) hypertension; J44.9 Chronic obstructive pulmonary disease, unspecified; T45.526A Underdosing of antithrombotic drugs, initial encounter; Z95.828 Presence of other vascular implants and grafts; Z87.891 Personal history of nicotine dependence; Z79.82 Long term (current) use of aspirin
CPT/HCPCS: 36415; 51798; 75625; 75635; 75710; 80053; 80061; 81001; 83036; 83605; 83735; 83880; 84100; 84145; 84443; 85025; 85347; 85610; 85730; 87040; 93005; 93926; 94664; 96365; 96366; 96374; 96375; 96376; 99152; 99153; 99285; C1769; C1887; C1894; J1644; J2250; J2270; J2470; J3010; J7030; Q9967

== ENCOUNTER 2024-06-03 14:16 | Emergency (ER) | payer MEDICARE, SELFPAY ==
[2024-06-03 14:44] VITALS: BP 123/69; PULSE 92; RESP 18; TEMP 37; O2SAT 100; BMI 26.9
--- NOTE | 2024-06-03 16:26 | PC.NURSE ---
Simental catheter removed per pt request
--- NOTE | 2024-06-03 17:18 | PC.NURSE ---
Pt was able to produce urine output without Simental catheter in place
--- NOTE | 2024-06-03 17:59 | W.ED.GENADLT ---
HPI - General Adult General: Chief complaint: General Medical Stated complaint: wants cath removed Time Seen by Provider: 06/03/24 16:20 History of Present Illness: Patient is a 73-year-old man that presents to the emergency department 2 weeks after a femoropopliteal completed at [facility]. Postoperatively, patient developed urinary retention and required a Simental to be placed. Patient was instructed to follow-up with urology but he did not want to drive for an appointment so he presented here for Simental removal. By the time I evaluate him in the emergency department, the Simental was already removed. Patient denies any complaints at this time Related Data Home Medications ?Medication ?Instructions ?Recorded ?Confirmed albuterol sulfate 90 mcg/actuation 2 puff inhalation Q6H PRN 07/16/22 05/17/24 aerosol inhaler shortness of breath cholecalciferol (vitamin D3) 50 50 mcg PO DAILY 07/16/22 05/17/24 mcg (2,000 unit) capsule fluticasone propionate 50 1 spray intranasal DAILY PRN 07/16/22 05/17/24 mcg/actuation nasal ALLERGIES spray,suspension (Allergy Relief (fluticasone)) olmesartan 20 mg tablet 20 mg PO QAM 07/16/22 05/17/24 omega 0-tai-hdh-fish oil 1,200 mg 1 cap PO DAILY 07/16/22 05/17/24 (144 mg-216 mg) capsule (Fish Oil) rosuvastatin 20 mg tablet 20 mg PO QPM 07/16/22 05/17/24 ferrous sulfate 325 mg (65 mg 325 mg PO DAILY 10/05/23 05/17/24 iron) tablet aspirin 81 mg tablet,delayed 81 mg PO QAM 05/17/24 05/17/24 release Previous Rx's ?Medication ?Instructions ?Recorded metoprolol succinate 25 mg See Rx Instructions .Route 04/18/24 tablet,extended release 24 hr .COMPLEX #270 tabs clopidogrel 75 mg tablet 75 mg PO DAILY #90 tabs 05/16/24 Allergies Allergy/AdvReac Type Severity Reaction Status Date / Time No Known Allergies Allergy Verified 01/17/24 14:12 Review of Systems General: Reports: 10 or more systems reviewed and unremarkable except in HPI and below PFSH ED PFSH: Medical History Esophageal varices Family history of colon cancer HTN (hypertension) Hyperlipemia COPD (chronic obstructive pulmonary disease) CAD (coronary artery disease) Surgical History Hx of colonoscopy [place] 1st -positive polyp 2nd - positive polyp ''but lost sample'' History of hernia surgery 01/11/24 Laparoscopic umbilical hernia repair with mesh- Dr Henriquez Hx of excision of mass 01/11/24 Excision of subfascial mass of back 11.5 cm Excision of subcutaneous mass of back 7.5 cm- Dr Henriquez Hx of neck surgery History of transurethral resection of prostate H/O repair of rotator cuff Family History Unknown Stroke Social History Smoking and tobacco/nicotine status: former use of tobacco/nicotine Alcohol intake: current Alcohol intake frequency: 3 or more drinks per day Alcohol type: beer Physical Exam Const: COMMON NORMALS: no acute distress, patient oriented x3 and alert GENERAL APPEARANCE: cooperative ORIENTATION/CONSCIOUSNESS: Yes awake, Yes oriented to person, Yes oriented to place and Yes oriented to time Resp: COMMON NORMALS: normal respiratory effort, No retractions and No use of accessory muscles EFFORT & INSPECTION: Yes able to speak in complete sentences and Yes symmetric chest movement Cardio: COMMON NORMALS: regular rate and Peripheral pulses 2+ throughout RATE: regular rate PERIPHERAL PULSES: Peripheral pulses 2+ throughout Extremity: COMMON NORMALS: normal to inspection GENERAL: Yes normal exam except as noted Neuro: COMMON NORMALS: patient oriented x3 SENSORIUM/ORIENTATION: Yes alert, Yes oriented to person, Yes oriented to place and Yes oriented to time CRANIAL NERVES: Yes CN normal except as noted Psych: COMMON NORMALS: mental status grossly normal, Normal thought process present, cooperative, activity/motor behavior normal, denies homicidal ideation and denies suicidal ideation THOUGHT PROCESS: Normal thought process present Skin: COMMON NORMALS: no rashes or lesions noted, no wounds and turgor normal GENERAL SKIN EXAM: no rashes or lesions noted and turgor normal Course Vital Signs: Vital signs: Vital Signs Temperature 98.6 F 06/03/24 14:44 Pulse Rate 92 06/03/24 14:44 Respiratory Rate 18 06/03/24 14:44 Blood Pressure 123/69 06/03/24 14:44 Pulse Oximetry 100 06/03/24 14:44 Oxygen Delivery Me thod Room Air 06/03/24 14:44 MDM - General Adult Medical Decision Making Simental removed. The monitor the patient for some time. We gave him p.o. fluid challenge and he was able to void without difficulty Patient already has Flomax at home and has follow-up with his surgeon. We are going to have him follow-up as planned with his primary care and his primary surgeon. May return to the emergency department for new concerning or worsening symptoms No radiology studies performed this visit Discharge Plan Discharge Patient Disposition: Home Clinical Impression: Encounter for Simental catheter removal Condition: Stable Prescriptions: No Action fluticasone propionate [Allergy Relief (fluticasone)] 50 mcg/actuation spray,suspension 1 spray intranasal DAILY PRN (Reason: ALLERGIES) Rx Instructions: administer into each nostril rosuvastatin 20 mg tablet 20 mg PO QPM olmesartan 20 mg tablet 20 mg PO QAM albuterol sulfate 90 mcg/actuation HFA aerosol inhaler 2 puff inhalation Q6H PRN (Reason: shortness of breath) cholecalciferol (vitamin D3) 50 mcg (2,000 unit) capsule 50 mcg PO DAILY omega 8-clu-puk-fish oil [Fish Oil] 1,200 (144-216) mg capsule 1 cap PO DAILY metoprolol succinate 25 mg tablet extended release 24 hr See Rx Instructions .ROUTE .COMPLEX Qty: 270 3RF Dose Instruction: TAKE TWO TABLETS BY MOUTH EVERY MORNING and TAKE ONE TABLET BY MOUTH EVERY EVENING Rx Instructions: TAKE TWO TABLETS BY MOUTH EVERY MORNING and TAKE ONE TABLET BY MOUTH EVERY EVENING. clopidogrel 75 mg tablet 75 mg PO DAILY Qty: 90 3RF ferrous sulfate 325 mg (65 mg iron) Tablet 325 mg PO DAILY aspirin 81 mg tablet,delayed release (DR/EC) 81 mg PO QAM Discharge Orders: Discharge ED (Routine); Ordered 06/03/24 Ordered By: Aliyah Perez Referrals: Nayana Chavez APN [Primary Care Provider] - Discharge Diet: Advance as tolerated Discharge Activity: Resume usual activity Patient Instructions: Opioid Safety, Pain Management Print Language: Burkinan Coding Level of Care Code ED Senior Controls Engineer for Grace Solano
== END 2024-06-03 18:07 | disposition home or self-care (01) ==
PROVIDERS: Emergency Provider Nurse Practitioner; PCP Nurse Practitioner Family
DX: Z46.6 Encounter for fitting and adjustment of urinary device (principal); Z79.82 Long term (current) use of aspirin; Z87.891 Personal history of nicotine dependence; I25.10 Atherosclerotic heart disease of native coronary artery without angina pectoris; J44.9 Chronic obstructive pulmonary disease, unspecified; I10 Essential (primary) hypertension
CPT/HCPCS: 99282

== ENCOUNTER → 2024-06-21 10:28 | Outpatient (BNVA) | payer MEDICARE, SELFPAY | PROVIDERS: PCP Nurse Practitioner Family; Visit Provider Internal Medicine | DX: I73.9 Peripheral vascular disease, unspecified (principal); I25.10 Atherosclerotic heart disease of native coronary artery without angina pectoris; I10 Essential (primary) hypertension; E78.5 Hyperlipidemia, unspecified; Z87.891 Personal history of nicotine dependence | CPT/HCPCS: 99214 ==

== ENCOUNTER 2024-10-02 22:43 | Emergency (ER) | payer MEDICARE, SELFPAY ==
--- NOTE | 2024-10-02 22:44 | XRR_ITS ---
PROCEDURE INFORMATION: Exam: XR Left Foot Exam date and time: 10/02/2024 10:56 PM Age: 73 years old Clinical indication: Injury or trauma; Fall; Blunt trauma; Foot; Left; Additional info: Injury/pain TECHNIQUE: Imaging protocol: Radiologic exam of the left foot. Views: 3 or more views. COMPARISON: CT angio abd aorta runof [id number] 05/17/2024 1:32 PM FINDINGS: Bones/joints: Distal fibular metaphyseal oblique impacted fracture with overlap of the fracture fragments. Dislocation at the tibiotalar joint is suspected, please refer to same-day ankle radiograph. Soft tissues: Normal. XR/XR foot LT min 3V* [id number] IMPRESSION: 1. Distal fibular metaphyseal oblique impacted fracture with overlap of the fracture fragments. 2. Dislocation at the tibiotalar joint is suspected, please refer to same-day ankle radiograph.
--- NOTE | 2024-10-02 22:48 | W.ED.LOWEXIN ---
HPI - Extremity Injury (Lower) General: Chief Complaint: Extremity Injury, Lower Stated Complaint: Left Foot Injury Time Seen by Provider: 10/02/24 22:44 Source: patient Mode of arrival: wheelchair Limitations: no limitations History of Present Illness: Patient is a very pleasant 73-year-old male who presents to the ED today for evaluation of a left ankle injury that he sustained just prior to arrival after accidentally stepped in a hole and twisted it. He notes deformity and probable fracture. States he is not able to bear weight on the extremity secondary to pain/injury. No other injuries or complaints at this time. complaint: ankle injury Onset (ago): hour(s) Injury: Left: ankle Place: home Severity: moderate Relieving factors: immobilization Exacerbating factors: weight bearing, movement and palpation Context: walking Associated symptoms: Reports inability to bear weight Other symptoms: none Related Data Home Medications ?Medication ?Instructions ?Recorded ?Confirmed albuterol sulfate 90 mcg/actuation 2 puff inhalation Q6H PRN 07/16/22 06/21/24 aerosol inhaler shortness of breath cholecalciferol (vitamin D3) 50 50 mcg PO DAILY 07/16/22 06/21/24 mcg (2,000 unit) capsule fluticasone propionate 50 1 spray intranasal DAILY PRN 07/16/22 06/21/24 mcg/actuation nasal ALLERGIES spray,suspension (Allergy Relief (fluticasone)) omega 4-acx-nyb-fish oil 1,200 mg 1 cap PO DAILY 07/16/22 06/21/24 (144 mg-216 mg) capsule (Fish Oil) rosuvastatin 20 mg tablet 20 mg PO QPM 07/16/22 06/21/24 ferrous sulfate 325 mg (65 mg 325 mg PO DAILY 10/05/23 06/21/24 iron) tablet aspirin 81 mg tablet,delayed 81 mg PO QAM 05/17/24 06/21/24 release Previous Rx's ?Medication ?Instructions ?Recorded metoprolol succinate 200 mg 200 mg PO DAILY #90 tabs 06/13/24 tablet,extended release 24 hr hydrocodone 7.5 mg-acetaminophen 1 tab PO Q4H PRN pain #20 tabs 10/03/24 325 mg tablet Allergies Allergy/AdvReac Type Severity Reaction Status Date / Time No Known Allergies Allergy Verified 06/21/24 10:36 Review of Systems Musc: Reports: joint pain (L ankle) and joint swelling (L ankle) Neuro: Reports: difficulty walking (secondary to left leg injury); Denies: numbness in extremities, weakness in extremities or sensory changes PFSH ED PFSH: Medical History Esophageal varices Family history of colon cancer HTN (hypertension) Hyperlipemia COPD (chronic obstructive pulmonary disease) CAD (coronary artery disease) Surgical History Hx of colonoscopy [place] 1st -positive polyp 2nd - positive polyp ''but lost sample'' History of hernia surgery 01/11/24 Laparoscopic umbilical hernia repair with mesh- Dr Henriquez Hx of excision of mass 01/11/24 Excision of subfascial mass of back 11.5 cm Excision of subcutaneous mass of back 7.5 cm- Dr Henriquez Hx of neck surgery History of transurethral resection of prostate H/O repair of rotator cuff Family History Unknown Stroke Social History Smoking and tobacco/nicotine status: former use of tobacco/nicotine Alcohol intake: current Alcohol intake frequency: 3 or more drinks per day Alcohol type: beer Substance/Drug Use: current Physical Exam Const: COMMON NORMALS: no acute distress, average body habitus, patient oriented x3, no limitations, healthy appearing, alert and well nourished GENERAL APPEARANCE: cooperative Extremity: COMMON NORMALS: capillary refill normal and no calf tenderness GENERAL: Yes normal exam except as noted LEFT LOWER EXTREMITY: Yes lower leg and Yes ankle joint (significant deformity L lower leg/ankle consistent with fx) Left ankle: Yes ROM (limited due to pain) and Yes neurovascular exam (normal) Neuro: COMMON NORMALS: patient oriented x3, moves all extremities, no focal motor deficits and no sensory deficits noted SENSORIUM/ORIENTATION: Yes alert Procedures Orthopedic Fracture Reduction Fracture #1: Side: left Fracture Reduction Location: tibia and fibula Analgesia: other (IV pain medication) Technique: direct manipulation and traction/counter-traction Post Reduction X-rays Demonstrate: anatomical reduction Post-reduction neuro exam: intact Post-reduction vascular exam: intact Splint Applied: Yes Patient Tolerated Procedure: well Additional Comments: performed along with Dr. Holley Course Consultations: Consultation #1: Dr. Obrien-reviewed original imaging and post reduction films; splint and follow up in office Vital Signs: Vital signs: Vital Signs Temperature 97.9 F 10/02/24 22:57 Pulse Rate 71 10/02/24 22:57 Respiratory Rate 18 10/02/24 22:57 Blood Pressure 155/92 10/02/24 22:57 Pulse Oximetry 97 10/02/24 22:57 Oxygen Delivery Me thod Room Air 10/02/24 22:57 MDM - Extremity Injury (Lower) Medical Decision Making Patient is a nice 73-year-old male here for a left trimalleolar ankle fracture with dislocation. Reduction performed here in the emergency department with anatomical/acceptable alignment. Reviewed original imaging as well as postreduction films with lab specialist Dr. Obrien who feels comfortable with splint and follow-up in office. Medical Records I reviewed the patient's medical records. XR interpretation done by ED provider, pending radiology final review Discharge Plan Discharge Patient Disposition: Home Clinical Impression: Closed displaced trimalleolar fracture of left ankle Qualifiers: Encounter type: initial encounter Qualified Code(s): S82.852A - Displaced trimalleolar fracture of left lower leg, initial encounter for closed fracture Condition: Stable Prescriptions: New hydrocodone-acetaminophen 7.5-325 mg tablet 1 tab PO Q4H PRN (Reason: pain) Qty: 20 0RF No Action fluticasone propionate [Allergy Relief (fluticasone)] 50 mcg/actuation spray,suspension 1 spray intranasal DAILY PRN (Reason: ALLERGIES) Rx Instructions: administer into each nostril rosuvastatin 20 mg tablet 20 mg PO QPM albuterol sulfate 90 mcg/actuation HFA aerosol inhaler 2 puff inhalation Q6H PRN (Reason: shortness of breath) cholecalciferol (vitamin D3) 50 mcg (2,000 unit) capsule 50 mcg PO DAILY omega 2-cbe-yfd-fish oil [Fish Oil] 1,200 (144-216) mg capsule 1 cap PO DAILY metoprolol succinate 200 mg tablet extended release 24 hr 200 mg PO DAILY Qty: 90 3RF ferrous sulfate 325 mg (65 mg iron) Tablet 325 mg PO DAILY aspirin 81 mg tablet,delayed release (DR/EC) 81 mg PO QAM Discharge Orders: Discharge ED (Routine); Ordered 10/03/24 Ordered By: Sarah Charles Referrals: Nayana Chavez APN [Primary Care Provider, [facility]] Patient Instructions: Ankle Fracture (DC), ORIF (DC), ORIF of an Ankle Fracture (DC), Opioid Safety, Pain Management Activity Restrictions/Additional Instructions: As we discussed, absolutely no weight bearing. You have been discharged with crutches. You need to ice and elevate your extremity is much as possible to help with swelling. Case management should reach out to you tomorrow to help set you up with your follow-up orthopedic appointment. You may use the prescribed pain medication as needed for severe discomfort. Print Language: Costa Rican Coding Level of Care Code ED Milled Rice Broker for Grace Solano
--- NOTE | 2024-10-02 22:50 | XRR_ITS ---
PROCEDURE INFORMATION: Exam: XR Left Ankle Exam date and time: 10/02/2024 10:56 PM Age: 73 years old Clinical indication: Injury or trauma; Fall; Fracture, traumatic; Closed fracture; Ankle; Left; Bimalleolar; Additional info: Injury/deformity TECHNIQUE: Imaging protocol: Radiologic exam of the left ankle. Views: 3 or more views. COMPARISON: CT angio abd aorta runof [id number] 05/17/2024 1:32 PM FINDINGS: Bones/joints: Distal fibular metaphyseal oblique impacted fracture with overlap of the fracture fragments. Medial dislocation of the tibia relative to the talus by at least 15 mm. Calcific densities along the medial aspect of the talus likely reflecting avulsion fracture fragments, CT could further characterize these. Distal Achilles tendon degenerative calcification. Soft tissues: Normal. XR/XR ankle LT min 3V* [id number] IMPRESSION: 1. Distal fibular metaphyseal oblique impacted fracture with overlap of the fracture fragments. 2. Medial dislocation of the tibia relative to the talus by at least 15 mm. 3. Calcific densities along the medial aspect of the talus likely reflecting avulsion fracture fragments, CT could further characterize these. 4. Distal Achilles tendon degenerative calcification.
[2024-10-02 22:57] VITALS: BP 155/92; PULSE 71; RESP 18; TEMP 36.6; O2SAT 97; BMI 27.8
[2024-10-02] MEDS: HYDROmorphone 0.5 MG/0.5 ML INJ 1 MG IVP (23:42)
[2024-10-02] MEDS: ondansetron 2 mg/ML SDV 2 mL 4 MG IVP (23:42)
--- NOTE | 2024-10-02 23:47 | XRR_ITS ---
PROCEDURE INFORMATION: Exam: XR Left Ankle Exam date and time: 10/02/2024 11:48 PM Age: 73 years old Clinical indication: Other: Post-reduction; Additional info: Post reduction TECHNIQUE: Imaging protocol: Radiologic exam of the left ankle. Views: 3 or more views. COMPARISON: CR (LOW EXM, ) 10/02/2024 10:56 PM FINDINGS: Bones/joints: Distal fibular metaphyseal oblique impacted fracture with overlap of the fracture fragments. Medial dislocation of the tibia relative to the talus by at least 6.5 mm, decreased compared to prior exam. Calcific densities along the medial aspect of the talus likely reflecting avulsion fracture fragments, CT could further characterize these. Distal Achilles tendon degenerative calcification. Soft tissues: Normal. XR/XR ankle LT min 3V* [id number] IMPRESSION: 1. Distal fibular metaphyseal oblique impacted fracture with overlap of the fracture fragments. 2. Medial dislocation of the tibia relative to the talus by at least 6.5 mm, decreased compared to prior exam. 3. Calcific densities along the medial aspect of the talus likely reflecting avulsion fracture fragments, CT could further characterize these. 4. Distal Achilles tendon degenerative calcification.
[2024-10-03] MEDS: HYDROcodone-acetaminophen 10-325 mg Tablet 2 TAB PO (00:18)
--- NOTE | 2024-10-03 08:44 | DCPLANNER ---
Message sent to ortho for follow up Patient is a nice 73-year-old male here for a left trimalleolar ankle fracture with dislocation. Reduction performed here in the emergency department with anatomical/acceptable alignment. Reviewed original imaging as well as postreduction films with implementation specialist Dr. Obrien who feels comfortable with splint and follow-up in office.
== END 2024-10-03 00:30 | disposition home or self-care (01) ==
PROVIDERS: Emergency Provider Physician Assistant; PCP Nurse Practitioner Family
DX: S82.852A Displaced trimalleolar fracture of left lower leg, initial encounter for closed fracture (principal); Z79.82 Long term (current) use of aspirin; Z87.891 Personal history of nicotine dependence; I25.10 Atherosclerotic heart disease of native coronary artery without angina pectoris; J44.9 Chronic obstructive pulmonary disease, unspecified; I10 Essential (primary) hypertension; E78.5 Hyperlipidemia, unspecified; Z85.038 Personal history of other malignant neoplasm of large intestine; X58.XXXA Exposure to other specified factors, initial encounter
CPT/HCPCS: 27752; 73610; 73630; 96374; 96375; 99284; 99291; J1171; J2405; J9999

== ENCOUNTER 2024-10-06 10:56 | Outpatient (CLI) | payer MEDICARE, SELFPAY ==
[2024-10-06 11:25] LABS: Basophils # 0.1 10^3/uL (0.0-0.1); Basophils % 0.9 %; Eosinophils # 0.2 10^3/uL (0.0-0.8); Eosinophils % 2.1 %; Lymphocytes # 0.7 10^3/uL (0.8-4.8); Lymphocytes % 8.5 %; Mean Corpuscular HGB Conc 32.9 g/dL (30-55); Mean Corpuscular Hemoglobin 31.7 pg (27-33); Mean Corpuscular Volume 96.6 fl (82-101); Mean Platelet Volume 10.5 fL (7.4-10.4); Monocytes # 0.5 10^3/uL (0.2-0.9); Monocytes % 6.9 %; Neutrophils # 6.25 10^3/uL (1.8-7.7); Neutrophils % 81.3 %; Nucleated Red Blood Cells % 0 %; Platelet Count 182 10^3/cmm (157-399); Red Blood Count 4.35 10^6/uL (3.85-5.65); Red Cell Distribution Width 14.6 % (12.1-15.1); White Blood Count 7.68 10^3/uL (3.29-11.43)
[2024-10-06 11:30] LABS: Bilirubin Urine Negative (Negative); Blood Urine Negative (Negative); Glucose Urine UA Negative (Normal); Ketones Urine Negative (Negative); Leukocyte Esterase Urine Negative (Negative); Nitrate Urine Negative (Negative); Protein Urine Negative (Negative); Urine Appearance Clear (CLEAR); Urine Color Yellow (Yellow); Urobilinogen Urine 0.2 mg/dL (Negative)
[2024-10-06 11:32] LABS: Add Urine Microscopic? YES; Bacteria Urine None Seen /hpf; Hyaline Casts Urine 0-4 /lpf; RBC Urine 0-2 /hpf (0-2); Squamous Epithelial Cell Urine 0-5 /hpf (0-5); WBC Urine 0-5 /hpf (0-5)
[2024-10-06 11:45] LABS: Alanine Aminotransferase 17 U/L (0-41); Albumin Level 4.1 g/dL (3.5-5.2); Alkaline Phosphatase 106 U/L (40-130); Anion Gap 15.9 (5-19); Aspartate Amino Transferase 26 U/L (0-40); Blood Urea Nitrogen 9 mg/dL (8-23); Calcium 9.6 mg/dL (8.5-10.5); Carbon Dioxide 28 mmol/L (22-29); Chloride 98 mmol/L (98-107); Globulin 3.4 g/dL (1.3-4.6); Glucose 150 mg/dL (65-115); Osmolality Calculated 288 mOsm/kg (285-295); Potassium 3.9 mmol/L (3.5-5.1); Sodium 138 mmol/L (136-145); Total Bilirubin 0.7 mg/dL (0.15-1.2); Total Protein 7.5 g/dL (6.6-8.7)
== END 2024-10-06 10:57 | disposition home or self-care (01) ==
PROVIDERS: PCP Nurse Practitioner Family; Visit Provider Orthopaedic Surgery
DX: Z01.818 Encounter for other preprocedural examination (principal); S82.832A Other fracture of upper and lower end of left fibula, initial encounter for closed fracture; X58.XXXA Exposure to other specified factors, initial encounter
CPT/HCPCS: 36415; 80053; 81001; 85025; 99204

== ENCOUNTER 2024-10-11 08:03 | Day surgery (SDC) | payer MEDICARE, SELFPAY ==
[2024-10-11] VITALS (9 sets, daily range): BP systolic 123–162; BP diastolic 63–84; PULSE 60–75; RESP 12–18; TEMP 36.2–36.4; O2SAT 95–100; BMI 27.8
--- NOTE | 2024-10-11 | XR_ITS ---
WS: [id number] Exam: XR ankle LT 2V [id number] Date/Time of Exam: 10/11/2024 12:00 AM Reason For Exam: OR PICS Comparison 10/02/2024. Oblique, AP and lateral C-arm images of the LEFT ankle are submitted. Images depict plate and screw fixation of the lower fibula which is now in satisfactory alignment for healing. Also there is cable fixation across the lower fibula and tibia. The ankle mortise has been restored. Chip fractures noted along the medial malleolus and possibly the posterior lower tibia.
[2024-10-11] MEDS: sodium chloride 0.9% 1,000 ML 30 ML IV (08:45)
--- NOTE | 2024-10-11 09:28 | ANES.PREANE2 ---
Pre-Anesthetic Assessment Height/Weight: Height 5 ft 4.5 in Weight 165 lb Temp Pulse Resp BP Pulse Ox O2 Del Method 97.3 F L 75 17 159/79 95 Room Air 10/11/24 08:31 10/11/24 08:31 10/11/24 08:31 10/11/24 08:31 10/11/24 08:31 10/11/24 08:32 Preop Diagnosis: Fibular fracture Operation Date: 10/11/24 10:05 Proposed Procedures p ORIF distal Fibula possible ope treatment of sydesmotic reconstructive device(Left) - Tobin Obrien MD Was Beta Jenna taken within 24 hours: Yes Was Clonidine taken within 24 hours: N/A Last intake: Intake Last Liquid Date 10/10/24 Last Liquid Time 19:30 Last Solid Date 10/10/24 Last Solid Time 19:00 Social No alcohol and No tobacco Exam alert, oriented x 3 and regular rate & rhythm Airway Submandibular: within normal limits Cervical ROM: within normal limits Mallampati: Class III Comments: Comments: Edentulous Anesthetic Plan ASA status: 3 Anesthesia: General and Regional (specify below) Other: No prior issues with anesthesia NPO since yesterday evening History of hypertension on metoprolol Chronic A-fib Patient has aphasia from a prior stroke Stress test 2023 was negative EKG showing A-fib with a prior old septal GA Labs reviewed 10/06/2024 acceptable for procedure Plan for general anesthesia with preoperative block Medications/Allergies Home Medications ?Medication ?Instructions ?Recorded ?Confirmed ?Last Taken ?Type albuterol sulfate 90 mcg/actuation 2 puff inhalation Q6H PRN 07/16/22 10/10/24 10/05/24 History aerosol inhaler shortness of breath cholecalciferol (vitamin D3) 50 50 mcg PO DAILY 07/16/22 10/10/24 10/08/24 History mcg (2,000 unit) capsule fluticasone propionate 50 1 spray intranasal DAILY PRN 07/16/22 10/10/24 10/08/24 History mcg/actuation nasal ALLERGIES spray,suspension (Allergy Relief (fluticasone)) omega 3-tec-jio-fish oil 1,200 mg 1 cap PO DAILY 07/16/22 10/10/24 10/02/24 History (144 mg-216 mg) capsule (Fish Oil) rosuvastatin 20 mg tablet 20 mg PO QPM 07/16/22 10/11/24 10/11/24 History ferrous sulfate 325 mg (65 mg 325 mg PO DAILY 10/05/23 10/10/24 10/02/24 History iron) tablet aspirin 81 mg tablet,delayed 81 mg PO QAM 05/17/24 10/10/24 10/02/24 History release metoprolol succinate 200 mg 200 mg PO DAILY #90 tabs 06/13/24 10/11/24 10/11/24 Rx tablet,extended release 24 hr hydrocodone 7.5 mg-acetaminophen 1 tab PO Q4H PRN pain 2 weeks #20 10/06/24 10/10/24 10/09/24 Rx 325 mg tablet tabs Allergies Allergy/AdvReac Type Severity Reaction Status Date / Time No Known Allergies Allergy Verified 10/10/24 09:22 Current Medications Generic Name Dose Route Start Last Admin Trade Name Freq PRN Reason Stop Dose Admin Sodium Chloride 1,000 mls @ 30 mls/hr 10/11/24 08:30 10/11/24 08:45 Sodium Chloride 0.9% IV 10/12/24 08:29 30 mls/hr .Q24H YOCASTA Administration PFSH Anesthesia Medical History Esophageal varices Family history of colon cancer HTN (hypertension) Hyperlipemia COPD (chronic obstructive pulmonary disease) CAD (coronary artery disease) Surgical History Hx of colonoscopy [place] 1st -positive polyp 2nd - positive polyp ''but lost sample'' History of hernia surgery 01/11/24 Laparoscopic umbilical hernia repair with mesh- Dr Henriquez Hx of excision of mass 01/11/24 Excision of subfascial mass of back 11.5 cm Excision of subcutaneous mass of back 7.5 cm- Dr Henriquez Hx of neck surgery History of transurethral resection of prostate H/O repair of rotator cuff Family History Unknown Stroke Social History Smoking and tobacco/nicotine status: never used tobacco/nicotine Alcohol intake: current Alcohol intake frequency: 3 or more drinks per day Alcohol type: beer Substance/Drug Use: current Data Anesthesia Cardiac Studies: Sestamibi Stress Test (Cardiology) 12/01/23 Cardiac Event Monitor 01/14/23
--- NOTE | 2024-10-11 09:35 | W.PM.OPSUD ---
Surgery/Procedure H&P Update DATE OF PROCEDURE: October 11, 2024 DATE H&P PERFORMED: 10/10/24 H&P UPDATE INFORMATION: I have reviewed H&P completed within last 30 days, I have examined patient prior to procedure and No changes to prior documentation PREOP DIAGNOSIS: Fracture left ankle PLANNED PROCEDURE: Operation Date: 10/11/24 10:05 Proposed Procedures p ORIF distal Fibula possible ope treatment of sydesmotic reconstructive device(Left) - Tobin Obrien MD
--- NOTE | 2024-10-11 10:06 | ANES.PROC ---
Anesthesia Procedures Procedure/Date: 10/11/24 Nerve Block ^: Nerve Block 1: Main Anesthesia: other (100 mcg fentanyl) Time Out Performed: Yes Consent: requested by attending/covering physician and from patient Nerve block location: popliteal Anesthesia monitors applied: pulse oximetry, EKG, BP cuff and oxygen Nerve block position: supine Ultrasound used to: recognize landmarks Nerve Stimulator Used?: Yes Interscalene/Femoral BLK: other needle (pjunk 4inch) Injection: neg aspiration of heme Patient Tolerated Procedure: well Complications: none Additional Comments: Decadron 4 mg out of the block Nerve Block 2: Main Anesthesia: other Time Out Performed: Yes Consent: requested by attending/covering physician and from patient Nerve block location: adductor canal Anesthesia monitors applied: pulse oximetry, EKG, BP cuff and oxygen Nerve block position: supine Anesthetic Used: ropivicaine 0.5% Amount of anesthesia used (mL): 15 Ultrasound used to: recognize landmarks Interscalene/Femoral BLK: other needle (pjunk 4inch) Injection: neg aspiration of heme Patient Tolerated Procedure: well Complications: none
[2024-10-11] MEDS: ceFAZolin 2,000 mg SDV 2000 MG IVP (10:20)
--- NOTE | 2024-10-11 10:22 | SUR.PREOP ---
block on left leg was performed. 50ml of ropivicaine used. patient on monitors and tolerated well.
--- NOTE | 2024-10-11 11:39 | P.OP_ITS ---
Operative Report Date of procedure: October 11, 2024 Surgeon: Tobin Obrien MD Procedure: Preoperative diagnosis: Fracture dislocation of left ankle Postoperative diagnosis: Same Procedure: Open reduction with internal fixation of distal fibular fracture left ankle with syndesmotic suture anchor placed Surgeon: Tobin Obrien MD Electrician Bus: RUDDY Allen's assistance was necessary for positioning the patient, assistance during the procedure, placement of splints and dressings, and transported to the PACU Anesthesia: General With preoperative ankle block EBL: 20 cc Tourniquet time: 30 minutes Indications: Juan is a 73-year-old white male who stepped on a hole approximately 1 week ago injuring his left ankle. He was seen in the emergency room. [facility] where the dislocation was reduced patient placed in a splint and instructed to follow-up in the orthopedic clinics. After follow-up and repeat evaluation is felt the patient will benefit from open reduction internal fixation of his left ankle with possible fixation of his syndesmotic ligament injury. On his x-rays in the office it did demonstrate that his mortise was disrupted and talus was shifted laterally. All risk benefits treatment alternatives were discussed with the patient he was agreeable to this at this time. Procedure: After obtaining written consent patient had a block administered to his left lower extremity in the preop holding area. Patient then taken to the operative room and placed on the operative table supine position general anesthetic administered. Once good anesthesia was achieved pneumatic cuffs placed on proximal left thigh and left leg was prepped and draped in usual fashion. After surgical timeout and gravity exsanguination the pneumatic is inflated to 50 mmHg. Longitudinal incision was made along the lateral border of the fibula starting from the distal tip extending proximally. Sharp dissection taken on down disc soft tissues and to the periosteum. Tissues are sharply debrided both anteriorly and posteriorly from the fibula and the fracture site. Fracture site was distracted and a small curette and rongeur were used to remove all fracture hematoma and nonviable bony tissue. Once this was clear using a small freer elevator fracture fragments were levered into place and held with a [id number] clamp. Interoperative fluoroscopy demonstrated adequate reduction. Subsequently a 8 hole distal fibular plate was placed over the lateral border of the fibula and held in place. A proximal and distal screw were placed in a stepwise fashion distal screws to be in cancellous fully threaded proximal screws being fully threaded cortical screws. Once fracture was reduced 2 more screws were placed distally both being cancellous fully threaded screws. Interoperative fluoroscopy demonstrated that there was no penetration through the cortex into the joint surface itself. Proximal screws were placed at the proximal portion of the plate totaling 3 bicortical screws. Interoperative fluoroscopy demonstrated there is still widening of the mortise and therefore drill holes drilled through one of the plate holes to the just proximal to the distal screws parallel to the joint line and capturing all the way through to the far cortex of the tibia. At this point blunt needle with suture syndesmotic anchor was placed through this drill hole from lateral to medial and out through a small stab wound. Sutures were obtained and controlled on the medial side of the ankle. Lateral ankle was then shifted down down into the plate itself. Locking anchors placed within the loop of the sutures on the medial side and then by traction on the lateral side sutures are brought down in to the surface of the medial tibia. With the locking button flat against this. Make tightening down the button with the sutures laterally having traction applied to them anchors are well-seated. Interoperative fluoroscopy demonstrated reduction of the mortise. Subsequently the sutures were tied off at this point holding its in place. Final fluoroscopy pictures were taken AP lateral mortise demonstrating adequate reduction and fixation of this fracture. Wound was then washed copious self sterile irrigation. Deep structure reapproximated 0 Vicryl [id number] sutures. Subcutaneous tissue reapproximated 0 Vicryl interrupted sutures and skin was closed with skin gildardo. Wounds are clean and dry dressed with a Adaptic dressing, sterile gauze dressing, sterile Webril and had a wrap applied to the lower extremity. Pardeep wrap held this in place. Patient then awakened transferred to cover room stable condition. Should be known pneumatic cuff was deflated at the time of skin closure.
--- NOTE | 2024-10-11 13:08 | ANE.PACU2 ---
Inpatient post-anesthesia follow up: Airway intact: Yes Vital signs: Temperature 97.2 F Pulse Rate 70 Respiratory Rate 17 Blood Pressure 162/72 Pulse Oximetry 96 Oxygen Delivery Me thod Room Air Oxygen Flow Rate Fraction of Inspir ed Oxygen Hydration adequate: Yes Nausea and vomiting: No Pain level: 1 Mental status: Baseline
== END 2024-10-11 13:08 | disposition home or self-care (01) ==
PROVIDERS: PCP Nurse Practitioner Family; Visit Provider Orthopaedic Surgery
PROC: 0QSK04Z Reposition Left Fibula with Internal Fixation Device, Open Approach (ICD-10-PCS; CPT 27828; principal; 2024-10-11 10:05)
DX: S93.05XA Dislocation of left ankle joint, initial encounter (principal); X58.XXXA Exposure to other specified factors, initial encounter; I48.91 Unspecified atrial fibrillation; I10 Essential (primary) hypertension; I69.320 Aphasia following cerebral infarction; Z79.82 Long term (current) use of aspirin; E78.5 Hyperlipidemia, unspecified; J44.9 Chronic obstructive pulmonary disease, unspecified; Z86.79 Personal history of other diseases of the circulatory system
CPT/HCPCS: 27829; 27792; 73600; 76000; C1713; J0690; J1100; J2405; J2704; J3010; J7030; J9999

== ENCOUNTER → 2024-10-24 11:20 | Outpatient (BNVA) | payer MEDICARE, SELFPAY | PROVIDERS: PCP Nurse Practitioner Family; Visit Provider Orthopaedic Surgery | DX: M25.572 Pain in left ankle and joints of left foot (principal); S82.892D Other fracture of left lower leg, subsequent encounter for closed fracture with routine healing; X58.XXXD Exposure to other specified factors, subsequent encounter | CPT/HCPCS: 73610 ==

== ENCOUNTER 2024-10-24 12:45 | Outpatient (CLI) | payer MEDICARE, SELFPAY | END 2024-10-24 12:46 | LOC: SPT 12:46 | PROVIDERS: PCP Nurse Practitioner Family; Visit Provider Orthopaedic Surgery | DX: Z46.89 Encounter for fitting and adjustment of other specified devices (principal); S82.852D Displaced trimalleolar fracture of left lower leg, subsequent encounter for closed fracture with routine healing; W10.9XXD Fall (on) (from) unspecified stairs and steps, subsequent encounter | CPT/HCPCS: 99024; L4361 ==

== ENCOUNTER → 2024-11-07 10:44 | Outpatient (BNVA) | payer MEDICARE, SELFPAY | PROVIDERS: PCP Nurse Practitioner Family; Visit Provider Orthopaedic Surgery | DX: S82.892D Other fracture of left lower leg, subsequent encounter for closed fracture with routine healing (principal); X58.XXXD Exposure to other specified factors, subsequent encounter | CPT/HCPCS: 73610; 99024 ==

== ENCOUNTER → 2024-12-04 11:40 | Outpatient (BNVA) | payer MEDICARE, SELFPAY | PROVIDERS: PCP Nurse Practitioner Family; Visit Provider Orthopaedic Surgery | DX: S82.892D Other fracture of left lower leg, subsequent encounter for closed fracture with routine healing (principal); X58.XXXD Exposure to other specified factors, subsequent encounter | CPT/HCPCS: 73610; 99024 ==

== ENCOUNTER → 2024-12-13 15:24 | Outpatient (BNVA) | payer MEDICARE, SELFPAY | PROVIDERS: PCP Nurse Practitioner Family; Visit Provider Internal Medicine | DX: I25.10 Atherosclerotic heart disease of native coronary artery without angina pectoris (principal); I73.9 Peripheral vascular disease, unspecified; I10 Essential (primary) hypertension; E78.5 Hyperlipidemia, unspecified; Z79.82 Long term (current) use of aspirin; Z87.891 Personal history of nicotine dependence | CPT/HCPCS: 99214 ==

== ENCOUNTER → 2024-12-15 09:24 | Outpatient (BNVA) | payer MEDICARE, SELFPAY | PROVIDERS: PCP Nurse Practitioner Family; Visit Provider Orthopaedic Surgery | DX: S82.892D Other fracture of left lower leg, subsequent encounter for closed fracture with routine healing (principal); X58.XXXD Exposure to other specified factors, subsequent encounter | CPT/HCPCS: 73610; 99024 ==

== ENCOUNTER → 2024-12-18 09:02 | Outpatient (BNVA) | payer MEDICARE, SELFPAY | PROVIDERS: PCP Nurse Practitioner Family; Visit Provider Orthopaedic Surgery | DX: L03.116 Cellulitis of left lower limb (principal) | CPT/HCPCS: 99024 ==

== ENCOUNTER 2024-12-20 17:56 | Observation (INO) | payer MEDICARE, SELFPAY ==
[2024-12-20] VITALS (16 sets, daily range): BP systolic 138–188; BP diastolic 74–127; PULSE 55–95; RESP 16–18; TEMP 36.3–36.8; O2SAT 94–100
--- NOTE | 2024-12-20 12:18 | ANES.PREANE2 ---
Pre-Anesthetic Assessment Height/Weight: Height 5 ft 4 in Weight 165 lb Temp Pulse Resp BP Pulse Ox O2 Del Method 98.2 F 55 L 18 146/93 99 Room Air 12/20/24 12:02 12/20/24 12:02 12/20/24 12:02 12/20/24 12:02 12/20/24 12:02 12/20/24 12:02 Preop Diagnosis: LE cellulitis Operation Date: 12/20/24 13:40 Proposed Procedures p Incision and drainage of left ankle(Left) - Tobin Obrien MD Was Beta Jenna taken within 24 hours: Yes Was Clonidine taken within 24 hours: N/A Last intake: Intake Last Liquid Date 12/19/24 Last Liquid Time 20:00 Last Solid Date 12/19/24 Last Solid Time 20:00 Social No alcohol and No tobacco Exam alert, oriented x 3, clear to auscultation bilaterally and regular rate & rhythm Airway Submandibular: within normal limits Cervical ROM: within normal limits Mallampati: Class III Anesthetic Plan ASA status: 3 Anesthesia: General Other: No prior issues with anesthesia NPO since yesterday evening History of cellulitis of the lower extremity Chronic A-fib Hypertension on metoprolol Prior CVA, 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 Prior stress test last year showing poor exercise capacity but no evidence of ischemia EKG showing A-fib Plan for general anesthesia with LMA Medications/Allergies Home Medications ?Medication ?Instructions ?Recorded ?Confirmed ?Last Taken ?Type albuterol sulfate 90 mcg/actuation 2 puff inhalation Q6H PRN 07/16/22 12/20/24 10/05/24 History aerosol inhaler shortness of breath cholecalciferol (vitamin D3) 50 50 mcg PO DAILY 07/16/22 12/20/24 12/19/24 History mcg (2,000 unit) capsule fluticasone propionate 50 1 spray intranasal DAILY PRN 07/16/22 12/20/24 12/19/24 History mcg/actuation nasal ALLERGIES spray,suspension (Allergy Relief (fluticasone)) omega 1-yso-dlp-fish oil 1,200 mg 1 cap PO DAILY 07/16/22 12/20/24 12/19/24 History (144 mg-216 mg) capsule (Fish Oil) rosuvastatin 20 mg tablet 20 mg PO QPM 07/16/22 12/20/24 12/19/24 History ferrous sulfate 325 mg (65 mg 325 mg PO DAILY 10/05/23 12/20/24 12/19/24 History iron) tablet aspirin 81 mg tablet,delayed 81 mg PO QAM 05/17/24 12/20/24 12/19/24 History release metoprolol succinate 200 mg 200 mg PO DAILY #90 tabs 06/13/24 12/20/24 12/20/24 Rx tablet,extended release 24 hr Left CAM walker #1 ea 10/24/24 12/20/24 Unknown Rx hydrocodone 5 mg-acetaminophen 325 1 tab PO Q6H PRN pain 5 days #20 11/22/24 12/20/24 12/19/24 Rx mg tablet tabs cephalexin 500 mg capsule 500 mg PO TID #30 caps 12/15/24 12/20/24 12/20/24 Rx Allergies Allergy/AdvReac Type Severity Reaction Status Date / Time No Known Allergies Allergy Verified 12/18/24 09:14 Current Medications Generic Name Dose Route Start Last Admin Trade Name Freq PRN Reason Stop Dose Admin Sodium Chloride 1,000 mls @ 30 mls/hr 12/20/24 11:30 12/20/24 11:58 Sodium Chloride 0.9% IV 12/21/24 11:29 30 mls/hr .Q24H YOCASTA Administration PFSH Anesthesia Medical History (Updated 12/18/24 @ 11:38 by Tobin Obrien MD) Esophageal varices Family history of colon cancer HTN (hypertension) Hyperlipemia COPD (chronic obstructive pulmonary disease) CAD (coronary artery disease) Surgical History Hx of colonoscopy [place] 1st -positive polyp 2nd - positive polyp ''but lost sample'' History of hernia surgery 01/11/24 Laparoscopic umbilical hernia repair with mesh- Dr Henriquez Hx of excision of mass 01/11/24 Excision of subfascial mass of back 11.5 cm Excision of subcutaneous mass of back 7.5 cm- Dr Henriquez Hx of neck surgery History of transurethral resection of prostate H/O repair of rotator cuff Family History Unknown Stroke Social History Smoking and tobacco/nicotine status: former use of tobacco/nicotine Alcohol intake: current Alcohol intake frequency: 3 or more drinks per day Alcohol type: beer Substance/Drug Use: current Data Anesthesia Cardiac Studies: Sestamibi Stress Test (Cardiology) 12/01/23 Cardiac Event Monitor 01/14/23
--- NOTE | 2024-12-20 13:23 | W.PM.OPSUD ---
Surgery/Procedure H&P Update DATE OF PROCEDURE: December 20, 2024 DATE H&P PERFORMED: 12/18/24 CHANGES TO PREVIOUS DOCUMENTATION: No interval change in health status since original H&P for left ankle fracture. Patient on no new medications has no new medical problems. PREOP DIAGNOSIS: LE cellulitis PRIMARY INDICATION FOR PROCEDURE: Draining surgical wound left ankle PLANNED PROCEDURE: Operation Date: 12/20/24 13:40 Proposed Procedures p Incision and drainage of left ankle(Left) - Tobin Obrien MD
[2024-12-20] MEDS: ceFAZolin 1,000 mg SDV 1000 MG IRRIGATION (15:21)
[2024-12-20] MEDS: ceFAZolin 2,000 mg SDV 2000 MG IVP ×2 (15:21→23:17)
--- NOTE | 2024-12-20 15:43 | P.OP_ITS ---
Operative Report Date of procedure: December 20, 2024 Surgeon: Tobin Obrien MD Procedure: Preop diagnosis: Chronic draining surgical wound left ankle Postoperative diagnosis: Same Procedure: Open irrigation debridement of left ankle surgical wound, cultures obtained Surgeon: Tobin Buitrago MD [employer]: RUDDY Allen's assistance was necessary for positioning the patient, assistance during the procedure, wound closure and dressing placement. Anesthesia: General EBL: None Tourniquet time: 18 minutes at 250 mmHg Indications: Mr. Fulton is a 74-year-old white male who greater than 2 months ago had an open reduction internal fixation of his left distal fibular fracture with a syndesmotic tight rope placed. He had gone on to heal his fractures quite well and was actually being weaned out of his boot and started on formal physical therapy when he started having swelling redness around the surgical incision. He had a small pinhole sinus tract that started draining clear liquid. He was started on oral antibiotics however after 1 week still did not appear to be improving and therefore he was offered surgical intervention for open irrigation debridement. All risk benefits treatment terms were discussed with him and he was agreeable to this at this time. Procedure: After obtaining consent patient was taken to the operating room placed in upper table supine position general segments are. Once K[place]ky was achieved pneumatic cuffs placed on proximal left leg and left leg would foot were prepped and draped usual fashion. After surgical timeout pneumatic cuff is inflated to 250 mmHg. Previous skin incision was opened up longitudinally with a #[address] down to hardware. Initially there is some small amount of purulent material coming out and cultures were obtained from this fluid in this area. Using a small rivera elevator soft tissue raised off the lateral aspect of the fibula where the fixation plate was. There was no abscess or cluster of purulent material. The area was debrided with a small curette as well as a rivera elevator. This is washed with copious amounts of pulse lavage irrigation with Ancef within it. Subsequently the wound was loosely closed with 2-0 nylon [id number] sutures. Wounds were then dressed with Xeroform gauze, sterile gauze dressing, ABD and a Curlex wrap. Pardeep wrap was applied for compression. Patient was awakened transferred to cover room in stable condition
[2024-12-20] MEDS: fentaNYL 50 mcg/mL INJ 2mL IVP ×2 (15:50→16:41)
--- NOTE | 2024-12-20 18:00 | ANE.PACU2 ---
Inpatient post-anesthesia follow up: Airway intact: Yes Vital signs: Temperature 97.6 F Pulse Rate 79 Respiratory Rate 18 Blood Pressure 157/85 Pulse Oximetry 98 Oxygen Delivery Me thod Room Air Oxygen Flow Rate 8 Fraction of Inspir ed Oxygen Hydration adequate: Yes Nausea and vomiting: No Pain level: 1 Mental status: Baseline
[2024-12-20] MEDS: HYDROcodone-acetaminophen 5-325 mg Tablet PO (20:54)
[2024-12-21 04:06] VITALS: BP 155/76; PULSE 77; RESP 16; TEMP 36.6; O2SAT 95
[2024-12-21 07:16] VITALS: BP 153/79; PULSE 68; RESP 17; TEMP 36.6; O2SAT 97
[2024-12-21] MEDS: metoprolol succinate ER (24 HR) 100 mg Tablet 200 MG PO (08:10)
[2024-12-21] MEDS: ceFAZolin 2,000 mg SDV 2000 MG IVP (08:11)
[2024-12-21 10:00] VITALS: PULSE 68; RESP 18; O2SAT 98
[2024-12-21] MEDS: HYDROcodone-acetaminophen 5-325 mg Tablet PO (11:01)
[2024-12-21 11:36] VITALS: BP 158/80; PULSE 62; RESP 18; TEMP 36.5; O2SAT 98
--- NOTE | 2024-12-21 12:48 | P.DS_ITS ---
Discharge Providers Date of Admission: 12/20/24 17:56 Date of Discharge: December 21, 2024 Attending Provider at Admission: Tobin Obrien MD Attending Provider at Discharge: Tobin Obrien MD Primary Care Provider: Nayana Chavez APN Reason for Visit Reason for Visit: [id number] Brief History: Patient is 74-year-old white male who had a ORIF of his left ankle greater than 2 months ago. Approximately 1 week ago began having drainage from his wound and continued to be erythematous and indurated. It did not seem to be improving with oral antibiotics and therefore at this time is felt patient to have an open irrigation debridement of the wound. Hospital Course Hospital Course Patient is admitted on 12/20/2024 and underwent the above-stated procedure. At that time of surgery there is no gross pus identified in the wound. There is no breakdown of the bone deep to this and the hardware is still well-maintained. Cultures were obtained and Gram stain demonstrated no organisms. Final cultures are still pending. Physical Exam Narrative: On exam today patient is in bed Pardeep wrap's and dressings are still in place on his left lower extremity. No drainage is identified coming through there. He is neurovascular intact distally. Discharge Data Studies Completed and Pending Pending at discharge Category Date Time Status Anaerobic Culture Routine Lab 12/20/24 15:19 Results Wound Culture and Gram Stain Routine Lab 12/20/24 15:19 Results Procedures Performed Irrigation debridement of surgical wound left ankle Vitals Last Vital Signs Temp 97.7 F 12/21/24 11:36 Pulse 62 12/21/24 11:36 Resp 18 12/21/24 11:36 BP 158/80 12/21/24 11:36 Pulse Ox 98 12/21/24 11:36 O2 Del Method Room Air 12/21/24 11:36 O2 Flow Rate 8 12/20/24 15:50 Discharge Plan Discharge Patient Disposition: Home Condition: Stable Prescriptions: New hydrocodone-acetaminophen 5-325 mg tablet 1 tab PO Q6H PRN (Reason: pain) Qty: 20 0RF Continued fluticasone propionate [Allergy Relief (fluticasone)] 50 mcg/actuation spray,suspension 1 spray intranasal DAILY PRN (Reason: ALLERGIES) Rx Instructions: administer into each nostril rosuvastatin 20 mg tablet 20 mg PO QPM albuterol sulfate 90 mcg/actuation HFA aerosol inhaler 2 puff inhalation Q6H PRN (Reason: shortness of breath) cholecalciferol (vitamin D3) 50 mcg (2,000 unit) capsule 50 mcg PO DAILY omega 9-hhj-qzu-fish oil [Fish Oil] 1,200 (144-216) mg capsule 1 cap PO DAILY cephalexin 500 mg capsule 500 mg PO TID Qty: 30 0RF (DME) Left CAM walker See Rx Instructions .Route .MEDSUPPLY Qty: 1 0RF Rx Instructions: As directed metoprolol succinate 200 mg tablet extended release 24 hr 200 mg PO DAILY Qty: 90 3RF hydrocodone-acetaminophen 5-325 mg tablet 1 tab PO Q6H PRN (Reason: pain) 5 Days Qty: 20 0RF ferrous sulfate 325 mg (65 mg iron) Tablet 325 mg PO DAILY aspirin 81 mg tablet,delayed release (DR/EC) 81 mg PO QAM Discharge Order = DC NOW: Discharge Order (Routine); Ordered 12/21/24 Ordered By: Tobin Obrien Other Ambulatory Orders: DME: Walker (Order) Location: None Selected Ordered By: Tobin Obrien Referrals: Tobin Obrien MD [Physician, Orthopedics] - 12/26/24 10:45 am Discharge Diet: Advance as tolerated Discharge Activity: Increase activity as tolerated Patient Instructions: Acute Wound Care (DC), Opioid Safety, Post Anesthesia Ca re, Patient Portal & Travis Instructions Activity Restrictions/Additional Instructions: May change dressing in 3 to 4 days. Cover wound to shower Continuing taking your antibiotics at home Ice and elevate as needed May ambulate as needed Discharge Attestations Time Spent in Discharge Care*: less than 30 min Quality Metrics Clinical Quality Measures [ No reported AMI, CVA or VTE this stay] Coding Level of Care Code Acute Code for Chg Fwdarshan
--- NOTE | 2024-12-21 13:30 | PC.NURSE ---
D/C pending transportation home. Patients friend is on his way to get him.
[2024-12-21 14:04] VITALS: BP 158/80; PULSE 62; O2SAT 98
== END 2024-12-21 14:00 | disposition home or self-care (01) ==
LOC: MEDSURG 17:56
PROVIDERS: Admitting Provider Orthopaedic Surgery; PCP Nurse Practitioner Family; Visit Provider Orthopaedic Surgery
PROC: (CPT 10180; 2024-12-20 13:30)
DX: S91.002A Unspecified open wound, left ankle, initial encounter (principal); T81.89XA Other complications of procedures, not elsewhere classified, initial encounter; Y83.8 Other surgical procedures as the cause of abnormal reaction of the patient, or of later complication, without mention of misadventure at the time of the procedure; I48.20 Chronic atrial fibrillation, unspecified; I10 Essential (primary) hypertension; Z86.73 Personal history of transient ischemic attack (TIA), and cerebral infarction without residual deficits; Z79.82 Long term (current) use of aspirin; E78.5 Hyperlipidemia, unspecified; J44.9 Chronic obstructive pulmonary disease, unspecified; I25.10 Atherosclerotic heart disease of native coronary artery without angina pectoris; Z87.891 Personal history of nicotine dependence
CPT/HCPCS: 10180; 87070; 87075; 87077; 87186; 87205; 97161; 97165; G0378; J0690; J1885; J2704; J3010; J7030; J9999

== ENCOUNTER → 2024-12-26 10:09 | Outpatient (BNVA) | payer MEDICARE, SELFPAY | PROVIDERS: PCP Nurse Practitioner Family; Visit Provider Orthopaedic Surgery | DX: T81.49XA Infection following a procedure, other surgical site, initial encounter (principal); Y83.8 Other surgical procedures as the cause of abnormal reaction of the patient, or of later complication, without mention of misadventure at the time of the procedure | CPT/HCPCS: 99024 ==

== ENCOUNTER → 2025-01-02 10:22 | Outpatient (BNVA) | payer MEDICARE, SELFPAY | PROVIDERS: PCP Nurse Practitioner Family; Visit Provider Orthopaedic Surgery | DX: T81.49XA Infection following a procedure, other surgical site, initial encounter (principal); Y83.8 Other surgical procedures as the cause of abnormal reaction of the patient, or of later complication, without mention of misadventure at the time of the procedure | CPT/HCPCS: 99024 ==

== ENCOUNTER → 2025-01-08 10:18 | Outpatient (BNVA) | payer MEDICARE, SELFPAY | PROVIDERS: PCP Nurse Practitioner Family; Visit Provider Orthopaedic Surgery | DX: Z98.890 Other specified postprocedural states (principal); T81.49XA Infection following a procedure, other surgical site, initial encounter; X58.XXXA Exposure to other specified factors, initial encounter | CPT/HCPCS: 99024 ==

== ENCOUNTER → 2025-01-15 09:06 | Outpatient (BNVA) | payer MEDICARE, SELFPAY | PROVIDERS: PCP Nurse Practitioner Family; Visit Provider Orthopaedic Surgery | DX: Z98.890 Other specified postprocedural states (principal) | CPT/HCPCS: 99024 ==

== ENCOUNTER → 2025-01-25 10:18 | Outpatient (BNVA) | payer MEDICARE, SELFPAY | PROVIDERS: PCP Nurse Practitioner Family; Visit Provider Orthopaedic Surgery | DX: S82.892D Other fracture of left lower leg, subsequent encounter for closed fracture with routine healing (principal); X58.XXXD Exposure to other specified factors, subsequent encounter | CPT/HCPCS: 99024 ==

== ENCOUNTER → 2025-02-13 11:07 | Outpatient (BNVA) | payer MEDICARE, SELFPAY | PROVIDERS: PCP Nurse Practitioner Family; Visit Provider Orthopaedic Surgery | DX: S82.892D Other fracture of left lower leg, subsequent encounter for closed fracture with routine healing (principal); X58.XXXD Exposure to other specified factors, subsequent encounter | CPT/HCPCS: 99024 ==

== ENCOUNTER → 2025-03-06 10:47 | Outpatient (BNVA) | payer MEDICARE, SELFPAY | PROVIDERS: PCP Nurse Practitioner Family; Visit Provider Orthopaedic Surgery | DX: S82.892D Other fracture of left lower leg, subsequent encounter for closed fracture with routine healing (principal); T81.49XA Infection following a procedure, other surgical site, initial encounter; X58.XXXD Exposure to other specified factors, subsequent encounter; X58.XXXA Exposure to other specified factors, initial encounter | CPT/HCPCS: 73610; 99213 ==

== ENCOUNTER → 2025-03-19 10:22 | Outpatient (BNVA) | payer MEDICARE, SELFPAY | PROVIDERS: PCP Nurse Practitioner Family; Visit Provider Orthopaedic Surgery | DX: S82.892D Other fracture of left lower leg, subsequent encounter for closed fracture with routine healing (principal); X58.XXXD Exposure to other specified factors, subsequent encounter | CPT/HCPCS: 99024 ==

== ENCOUNTER → 2025-04-03 11:03 | Outpatient (BNVA) | payer MEDICARE, SELFPAY | PROVIDERS: PCP Nurse Practitioner Family; Visit Provider Orthopaedic Surgery | DX: T81.49XA Infection following a procedure, other surgical site, initial encounter (principal); Y83.8 Other surgical procedures as the cause of abnormal reaction of the patient, or of later complication, without mention of misadventure at the time of the procedure; S82.892D Other fracture of left lower leg, subsequent encounter for closed fracture with routine healing; X58.XXXD Exposure to other specified factors, subsequent encounter | CPT/HCPCS: 99024 ==